=== PATIENT | female | born 1960 | race Two or more races ===

== ENCOUNTER 2016-07-31 09:10 | Emergency (ER) | payer MEDICAID ==
[~2016-07-31] VITALS: Ht 165.1 cm; Wt 68.0 kg
[2016-07-31] MEDS ORDERED: SODIUM CHLORIDE 0.9% 1,000 ML IVB ONE (12:48)
[2016-07-31] MEDS ORDERED: KETOROLAC TROMETH 30 MG/ML 1ML VIAL IV ONE (13:00)
[2016-07-31] MEDS ORDERED: ONDANSETRON HCL 4 MG/2 ML VIAL IV ONE (13:00)
[2016-07-31 13:13] LABS: Basophils # (auto) 0 uL; Basophils % (auto) 0.3 % (0.0-2.0); Eosinophils # (auto) 0.2 uL; Eosinophils % (auto) 2.7 % (0.0-7.0); Hemoglobin 11.9 g/dL (12.2-16.2); Lymphocytes # (auto) 2.6 uL; Lymphocytes % (auto) 38.4 % (10.0-50.0); Mean Corpuscular Hemoglobin 32.8 pg (28.0-32.0); Mean Corpuscular Volume 99.3 fL (80.0-100.0); Mean Platelet Volume 8.8 fL (7.4-10.4); Monocytes # (auto) 0.6 uL; Monocytes % (auto) 8.5 % (0.0-12.0); Neutrophils # (auto) 3.4 uL; Neutrophils % (auto) 50.1 % (37.0-80.0); Platelet Count (auto) 133 10^3/uL (140-450); Red Cell Distribution Width 13.2 % (11.6-16.0); White Blood Cell 6.9 10^3/uL (4.4-10.8)
[2016-07-31 13:39] LABS: Albumin 3.6 g/dL (3.4-5.0); Amylase 121 U/L (25-115); BUN/Creatinine Ratio 12.3; Bilirubin, Total 0.5 mg/dL (0.2-1.0); Calcium 9.7 mg/dL (8.5-10.1); Total Protein 6.8 g/dL (6.4-8.2)
[2016-07-31 14:27] LABS: Urine Bilirubin Negative (Negative); Urine Blood Negative /uL (Negative); Urine Color Yellow (Yellow); Urine Glucose Normal (Normal); Urine Ketone Negative (Negative); Urine Nitrite Negative (Negative); Urine RBC 1 /hpf (0 - 4); Urine Squamous Epithelial Cell FEW /hpf (<5); Urine Urobilinogen Normal (Negative); Urine pH 7.5 (5.0-8.0)
[2016-07-31 15:00] VITALS: BP 158/68
== END 2016-07-31 15:02 | disposition home or self-care (01) ==
LOC: EDBD 09:10 → ER 09:14
DX: R10.9 Unspecified abdominal pain (principal); R11.2 Nausea with vomiting, unspecified; I10 Essential (primary) hypertension; I38 Endocarditis, valve unspecified; F17.210 Nicotine dependence, cigarettes, uncomplicated; F12.10 Cannabis abuse, uncomplicated
CPT/HCPCS: 36415; 74176; 80053; 81001; 82150; 83690; 85025; 93005; 94761; 96361; 96374; 96375; 99285; J1885; J2405; J7030

== ENCOUNTER → 2016-12-10 | Outpatient (CLI) | payer MEDICAID | END | disposition home or self-care (01) | LOC: Rad HDHVI 10:12 | PROVIDERS: ATTEND Internal Medicine Cardiovascular Disease | DX: R07.9 Chest pain, unspecified (principal); R06.02 Shortness of breath; R60.9 Edema, unspecified | CPT/HCPCS: 93306 ==

== ENCOUNTER → 2016-12-16 | Outpatient (CLI) | payer MEDICAID ==
[~2016-12-16] VITALS: Ht 152.4 cm; Wt 55.8 kg
[~2016-12-16] MED LIST: ADENOSINE 47 MG in GIVE UN-DILUTED 0 ML IV ONE; ADENOSINE 90 MG/30 ML INJ IV ONE
== END | disposition home or self-care (01) ==
LOC: Rad HDHVI 13:21
PROVIDERS: ATTEND Internal Medicine Cardiovascular Disease
DX: Z95.0 Presence of cardiac pacemaker (principal)
CPT/HCPCS: 78452; 93005; 96374; 96375; A9500; J0153

== ENCOUNTER 2019-01-04 16:36 | Inpatient (IN) | payer MEDICAID ==
[~2019-01-04] VITALS: Ht 162.6 cm; Wt 60.7 kg
[2019-01-04 19:36] LABS: Basophils # (auto) 0 uL; Basophils % (auto) 0.6 % (0.0-2.0); Eosinophils # (auto) 0.1 uL; Mean Corpuscular Hemoglobin 34.6 pg (28.0-32.0); Monocytes # (auto) 0.5 uL; White Blood Cell 5.7 10^3/uL (4.4-10.8)
[2019-01-04 19:37] LABS: Eosinophils % (auto) 2.1 % (0.0-7.0); Hematocrit 35.7 % (36.0-46.0); Hemoglobin 11.8 g/dL (12.2-16.2); Lymphocytes # (auto) 2.5 uL; Mean Corpuscular Volume 104.6 fL (80.0-100.0); Monocytes % (auto) 9.4 % (0.0-12.0); Neutrophils # (auto) 2.6 uL; Neutrophils % (auto) 44.9 % (37.0-80.0); Nucleated Red Blood Cells % 0.1 %; Platelet Count (auto) 95 10^3/uL (140-450); Red Blood Cells 3.41 10^6/uL (4.0-5.20); Red Cell Distribution Width 12.6 % (11.8-14.3)
[2019-01-04 19:41] LABS: Albumin 3.6 g/dL (3.4-5.0); Anion Gap 9 (5-15); Blood Urea Nitrogen 15 mg/dL (7-18); Calcium 9.9 mg/dL (8.5-10.1); Carbon Dioxide 22 mmol/L (21-32); Chloride 116 mmol/L (98-107); GFR African American 63 mL/min; GFR Non-African American 52 mL/min; Glucose 85 mg/dL (74-106); Magnesium 2.2 mg/dL (1.6-2.6); Potassium 4.1 mmol/L (3.5-5.1); Sodium 147 mmol/L (136-145)
[2019-01-04 19:44] LABS: Alanine Aminotransferase 24 U/L (13-56); Alkaline Phosphatase 82 U/L (45-117); Aspartate Aminotransferase 18 U/L (15-37); Bilirubin, Total 0.4 mg/dL (0.2-1.0); Total Protein 6.6 g/dL (6.4-8.2)
[2019-01-04 20:02] LABS: INR 1.14 (0.9-1.15); Partial Thromboplastin Time 42.1 sec (23.64-32.05)
[2019-01-04] MEDS ORDERED: ONDANSETRON HCL 4 MG/2 ML VIAL IV PRN (20:45)
[2019-01-04] MEDS ORDERED: NITROGLYCERIN 0.4 MG SL TAB SL PRN (20:45)
[2019-01-04] MEDS ORDERED: MORPHINE SULF INJ 2 MG/ML SYRINGE 1ML IV PRN (20:45)
[2019-01-04] MEDS ORDERED: TEMAZEPAM 15 MG CAP PO PRN (20:45)
--- NOTE | 2019-01-04 23:00 | NUR ---
Telemetry admit from ER YOJANA LAUREN S admitted to Telemetry unit after SBAR received. Patient oriented to Ilsa Richardson RN primary RN, unit, room, bed, and unit policies regarding patient care and visiting hours. Patient now on continuous telemetry monitoring, tele box # 47 and telemetry reading on arrival to unit is AV Paced. Patient weighed by bedscale and encouraged to call if they need something. All questions and concerns addressed, patient verbalized understanding, will continue to monitor Note: []
[2019-01-04] MEDS: FAMOTIDINE 20 MG TAB PO SCH (23:32)
[2019-01-04] MEDS: ATORVASTATIN 20 MG TAB PO SCH (23:32)
[2019-01-04 23:58] VITALS: BP 154/57
[2019-01-05 02:24] VITALS: BP 154/57
[2019-01-05] MEDS ORDERED: PANT40TA2 PO (02:49)
[2019-01-05] MEDS ORDERED: CARV6.2551 PO (02:49)
[2019-01-05] MEDS ORDERED: TOPI100T68 PO (02:49)
[2019-01-05] MEDS ORDERED: SIMV-8 PO (02:49)
[2019-01-05] MEDS ORDERED: LOSA-39 PO (02:49)
[2019-01-05] MEDS ORDERED: MAGN400C2 PO (02:49)
[2019-01-05] MEDS ORDERED: HYDR-4833 PO (02:49)
[2019-01-05 05:12] VITALS: BP 141/59
[2019-01-05 06:05] LABS: Anion Gap 7 (5-15); Calcium 9.4 mg/dL (8.5-10.1); Carbon Dioxide 23 mmol/L (21-32); Chloride 118 mmol/L (98-107); Glucose 89 mg/dL (74-106); Potassium 4.4 mmol/L (3.5-5.1); Sodium 148 mmol/L (136-145)
[2019-01-05 06:17] LABS: BUN/Creatinine Ratio 14.4; Blood Urea Nitrogen 16 mg/dL (7-18); GFR African American 65 mL/min; GFR Non-African American 54 mL/min
[2019-01-05] MEDS: FUROSEMIDE 40 MG TAB PO SCH (08:17)
[2019-01-05] MEDS: FAMOTIDINE 20 MG TAB PO SCH ×2 (08:17→20:55)
[2019-01-05] MEDS: CARVEDILOL 3.125 MG TAB PO SCH ×2 (08:18→22:34)
[2019-01-05] MEDS: ASPirin 81 mg TAB PO SCH (08:18)
[2019-01-05 09:48] LABS: Cholesterol 125 mg/dL (< 200)
[2019-01-05 09:50] LABS: HDL Cholesterol 66 mg/dL (40-59); LDL Cholesterol 47 mg/dL (< 100); Triglycerides 102 mg/dL (< 150)
[2019-01-05 13:10] VITALS: BP 146/77
[2019-01-05 17:00] VITALS: BP 153/62
--- NOTE | 2019-01-05 19:45 | NUR ---
Opening Shift Note Assumed care of patient, awake and alert, oriented x 4, follows direction. On room air with even and unlabored respiration, no S/S of distress or SOB. Iv to right hand intact and patent. Patient turns independently in bed and ambulates to bathroom with steady gait. Bed low locked position with side rails up x 2 and call light within reach. Instructed on POC and to call for assist PRN, will continue to monitor for changes Q1hr and PRN.
[2019-01-05] MEDS: ACETAMINOPHEN 325 MG TAB PO PRN (20:55)
[2019-01-05] MEDS: ATORVASTATIN 20 MG TAB PO SCH (20:55)
[2019-01-05 21:45] VITALS: BP 120/47
[2019-01-05 22:37] LABS: Urine Amorphous Crystal FEW /hpf (None Seen); Urine Bacteria FEW /hpf (None Seen); Urine Blood Negative /uL (Negative); Urine Specific Gravity 1.015 (1.001-1.035); Urine WBC 2 /hpf (0 - 5)
[2019-01-06 05:00] VITALS: BP 150/51
--- NOTE | 2019-01-06 06:50 | NUR ---
IV insertion IV access obtained, via clean sterile technique by inserting 20 gauge catheter at right forearm after 2 attempt(s). IV secured properly. No trauma to site. Patient tolerated well. NOTE: secondary IV for stress test
--- NOTE | 2019-01-06 07:00 | NUR ---
Opening Shift Note Assumed care of patient, awake and alert. No S/S of distress/SOB or pain. Instructed on POC and to call for assist PRN, will continue to monitor for changes Q1hr and PRN.
--- NOTE | 2019-01-06 07:06 | NUR ---
Closing Note patient resting in bed with even and unlabored respirations. No s/s of distress. Bed low locked position with side rails up x 2 and call light within reach. Endorsed care to day shift RN.
--- NOTE | 2019-01-06 07:09 | NUR ---
Called [employer] for pacemaker assessment spoke with Candida from [employer] answering [employer], states she will be calling a labor union business representative to assess pacemaker today. Patients [employer] Accounts Payable Administrator Identification copy placed in hard chart.
[2019-01-06 07:10] LABS: Basophils # (auto) 0 uL; Eosinophils # (auto) 0.1 uL; Hemoglobin 11.8 g/dL (12.2-16.2); Monocytes # (auto) 0.4 uL; Neutrophils # (auto) 3.4 uL; Nucleated Red Blood Cells % 0.1 %
[2019-01-06 07:12] LABS: Basophils % (auto) 0.6 % (0.0-2.0); Hematocrit 34.7 % (36.0-46.0); Lymphocytes # (auto) 1.4 uL; Lymphocytes % (auto) 26.5 % (10.0-50.0); Mean Corpuscular Hemoglobin 35.1 pg (28.0-32.0); Mean Corpuscular Volume 103.2 fL (80.0-100.0); Monocytes % (auto) 7.4 % (0.0-12.0); Neutrophils % (auto) 63.5 % (37.0-80.0); Platelet Count (auto) 94 10^3/uL (140-450); Red Blood Cells 3.36 10^6/uL (4.0-5.20); Red Cell Distribution Width 12.3 % (11.8-14.3); White Blood Cell 5.3 10^3/uL (4.4-10.8)
[2019-01-06 07:27] LABS: Albumin 3.1 g/dL (3.4-5.0); Anion Gap 8 (5-15); Blood Urea Nitrogen 15 mg/dL (7-18); Calcium 9.4 mg/dL (8.5-10.1); Carbon Dioxide 19 mmol/L (21-32); Chloride 118 mmol/L (98-107); Glucose 86 mg/dL (74-106); Potassium 3.9 mmol/L (3.5-5.1); Sodium 145 mmol/L (136-145)
[2019-01-06 07:33] LABS: Alanine Aminotransferase 19 U/L (13-56); Alkaline Phosphatase 74 U/L (45-117); Aspartate Aminotransferase 16 U/L (15-37); BUN/Creatinine Ratio 14.7; Bilirubin, Total 0.4 mg/dL (0.2-1.0); GFR African American 72 mL/min; GFR Non-African American 60 mL/min
[2019-01-06] MEDS ORDERED: ADENOSINE 51 MG in GIVE UN-DILUTED 0 ML IV STA (08:20)
[2019-01-06 09:00] VITALS: BP 152/64
--- NOTE | 2019-01-06 09:00 | NUR ---
PT DOWN IN NUCLEAR MED.
--- NOTE | 2019-01-06 09:22 | NUR ---
MEDITRONIC REP AT BEDSIDE, BUT PATIENT IS IN NUCLEAR MEDICINE. HE STATED HE HAD TO GO TO [facility] AND THEN HE WILL RETURN.
[2019-01-06] MEDS: ASPirin 81 mg TAB PO SCH (10:00)
[2019-01-06] MEDS: CARVEDILOL 3.125 MG TAB PO SCH ×2 (10:00→20:34)
[2019-01-06] MEDS: FAMOTIDINE 20 MG TAB PO SCH ×2 (11:51→20:33)
[2019-01-06] MEDS: FUROSEMIDE 40 MG TAB PO SCH (11:51)
[2019-01-06] MEDS ORDERED: cefTRIAXone 1GM/50ML D5W 50 ML IV ONE (12:30)
[2019-01-06 12:36] VITALS: BP 144/62
--- NOTE | 2019-01-06 15:40 | NUR ---
FALL: NOTIFIED BY RN MATT SIMENTAL OF PATIENTS FALL. NOTIFIED CHARGE NURSE DANIELA AND PAGED DR. GÓMEZ.
--- NOTE | 2019-01-06 15:42 | NUR ---
FALL: While helping bedside RN collect urine sample, was informed by patient that she fell in the restroom after using toilet. Patient states that she was able to get up and get back to bed on her own. Patient states that she didn't hit her head. Patient states she just wanted to let nursing staff know. Informed bedside RN, Bobby, rim fire charger operator. to be paged.
[2019-01-06 16:05] LABS: Urine Bacteria FEW /hpf (None Seen); Urine Blood Negative /uL (Negative); Urine Hyaline Cast FEW /lpf (0 - 2); Urine Specific Gravity 1.007 (1.001-1.035); Urine WBC 11 /hpf (0 - 5)
--- NOTE | 2019-01-06 16:22 | NUR ---
NOTIFIED OF FALL DR. GÓMEZ AWARE OF FALL. NO INTERVENTIONS NEEDED UNLESS PATIENT STARTS COMPLAINING OF PAIN THEN ORDER AN X-RAY
[2019-01-06 17:00] VITALS: BP 114/51
--- NOTE | 2019-01-06 19:50 | NUR ---
Opening Shift Note Assumed care of patient, awake and alert, oriented x 4, follows direction. On room air with even and unlabored respiration, no S/S of distress or SOB. IV to right hand and forearm intact and patent. Patient turns independently in bed and ambulates to bathroom with steady gait. Bed low locked position with side rails up x 2 and call light within reach. Instructed on POC and to call for assist PRN, will continue to monitor for changes Q1hr and PRN.
[2019-01-06] MEDS: ACETAMINOPHEN 325 MG TAB PO PRN (20:32)
[2019-01-06 21:45] VITALS: BP 144/98
[2019-01-06] MEDS: ATORVASTATIN 20 MG TAB PO SCH (21:50)
[2019-01-07 05:52] VITALS: BP 143/58
[2019-01-07 06:18] LABS: Basophils # (auto) 0 uL; Lymphocytes # (auto) 2.1 uL; Mean Corpuscular Hgb Conc. 33.8 g/dL (32.0-36.0); Monocytes # (auto) 0.5 uL; Red Blood Cells 3.47 10^6/uL (4.0-5.20)
[2019-01-07 06:29] LABS: Basophils % (auto) 0.9 % (0.0-2.0); Eosinophils # (auto) 0.2 uL; Eosinophils % (auto) 2.7 % (0.0-7.0); Hematocrit 35.7 % (36.0-46.0); Hemoglobin 12.1 g/dL (12.2-16.2); Lymphocytes % (auto) 37.4 % (10.0-50.0); Mean Corpuscular Hemoglobin 34.8 pg (28.0-32.0); Mean Corpuscular Volume 102.8 fL (80.0-100.0); Monocytes % (auto) 8.2 % (0.0-12.0); Neutrophils # (auto) 2.9 uL; Neutrophils % (auto) 50.8 % (37.0-80.0); Nucleated Red Blood Cells % 0.1 %; Platelet Count (auto) 100 10^3/uL (140-450); Red Cell Distribution Width 12.3 % (11.8-14.3); White Blood Cell 5.7 10^3/uL (4.4-10.8)
--- NOTE | 2019-01-07 06:53 | NUR ---
Closing Note patient resting in bed with even and unlabored respirations. No s/s of distress. Bed low locked position with side rails up x 2 and call light within reach.
[2019-01-07 06:54] LABS: Anion Gap 8 (5-15); Blood Urea Nitrogen 13 mg/dL (7-18); Calcium 9.6 mg/dL (8.5-10.1); Carbon Dioxide 20 mmol/L (21-32); Chloride 117 mmol/L (98-107); Glucose 94 mg/dL (74-106); Potassium 3.8 mmol/L (3.5-5.1); Sodium 145 mmol/L (136-145)
[2019-01-07 06:57] LABS: BUN/Creatinine Ratio 11.8; GFR African American 66 mL/min; GFR Non-African American 55 mL/min
--- NOTE | 2019-01-07 06:58 | NUR ---
Received call from MD Peterson Spoke with Dr. Herrera, received new order to obtain consent for LHC for abnormal stress test per Dr. Brown. Dr. Peterson will performing LHC. Updated Kristen on patient status, patient has been NPO since midnight. Will carry out orders.
[2019-01-07] MEDS ORDERED: LIDOCAINE 2%HCL (LOCAL ANESTH.) INJ 20ML MDV ONE (07:24)
--- NOTE | 2019-01-07 07:25 | NUR ---
Patient taken to engineering laboratory technician
--- NOTE | 2019-01-07 07:28 | NUR ---
Endorsed care to day shift KEENAN Bauman
[2019-01-07] MEDS ORDERED: IODIXANOL 320MG/ML 100ML BTL IV ONE ×2 (07:36→07:49)
[2019-01-07] MEDS ORDERED: ANGIOMAX 250 MG VIAL IV ONE (07:44)
[2019-01-07] MEDS ORDERED: fentaNYL CITRATE 100 MCG/2 ML VL ONE (07:45)
[2019-01-07] MEDS ORDERED: MIDAZOLAM HCL 1MG/1ML-2 ML VIAL ONE (07:45)
[2019-01-07] MEDS ORDERED: SODIUM CHL 0.9% 0 ML ONE (07:45)
[2019-01-07 08:00] VITALS: BP 148/61
--- NOTE | 2019-01-07 09:10 | NUR ---
PATIENT BACK ON FLOOR FROM BALANCE CLERK PEDAL PULSES CHECKED AND RIGHT GROIN DRESSING CHECKED. DRESSING IS DRY INTACT WITH NO BLEEDING.
[2019-01-07] MEDS: ASPirin 81 mg TAB PO SCH (10:00)
[2019-01-07] MEDS: cefTRIAXone 1GM/50ML D5W 50 ML IV SCH (10:18)
[2019-01-07] MEDS: CARVEDILOL 3.125 MG TAB PO SCH ×2 (10:20→22:00)
[2019-01-07] MEDS: FUROSEMIDE 40 MG TAB PO SCH (10:21)
[2019-01-07] MEDS: FAMOTIDINE 20 MG TAB PO SCH ×2 (10:21→21:04)
--- NOTE | 2019-01-07 11:30 | NUR ---
IV removal Patient IV was leaking,no pain per patient. IV DC'd with clean sterile technique, catheter fully intact. Pressure dressing applied to site. Patient tolerated well.
[2019-01-07 13:00] VITALS: BP 149/54
[2019-01-07 16:19] VITALS: BP 149/54
[2019-01-07 17:00] VITALS: BP 143/53
--- NOTE | 2019-01-07 19:45 | NUR ---
Opening Shift Note Assumed care of patient, s/p LHC, dressing to right groin clean, dry and intact, no hematoma, no bleeding, soft upon palpation, positive tissue perfusion bilateral LE with +3 pulses, even and regular to bilateral pedal pulses. Awake and alert, oriented x 4, follows direction. On room air with even and unlabored respiration, no S/S of distress or SOB. IV to right hand intact and patent. Patient turns independently in bed and ambulates to bathroom with steady gait. Bed low locked position with side rails up x 2 and call light within reach. Instructed on POC and to call for assist PRN, will continue to monitor for changes Q1hr and PRN.
[2019-01-07] MEDS: ATORVASTATIN 20 MG TAB PO SCH (21:04)
[2019-01-07] MEDS: ACETAMINOPHEN 325 MG TAB PO PRN (21:07)
[2019-01-07 21:30] VITALS: BP 129/41
[2019-01-08 05:29] VITALS: BP 153/51
[2019-01-08 08:00] VITALS: BP 117/57
--- NOTE | 2019-01-08 08:00 | NUR ---
Patient in bed, awake, oriented x4. No acute distress noted.
--- NOTE | 2019-01-08 10:00 | NUR ---
Patient is ambulatory, steady gait noted.
[2019-01-08] MEDS: cefTRIAXone 1GM/50ML D5W 50 ML IV SCH (10:22)
[2019-01-08] MEDS: FAMOTIDINE 20 MG TAB PO SCH (10:23)
[2019-01-08] MEDS: FUROSEMIDE 40 MG TAB PO SCH (10:23)
[2019-01-08] MEDS: CARVEDILOL 3.125 MG TAB PO SCH (10:23)
[2019-01-08] MEDS: ASPirin 81 mg TAB PO SCH (10:24)
[2019-01-08 10:43] VITALS: BP 117/57
--- NOTE | 2019-01-08 11:05 | NUR ---
Dr. Burnett made aware patient asked for prescription for Carvedilol 6.25 mg.
--- NOTE | 2019-01-08 12:15 | NUR ---
Discharge instructions given as ordered. Encourage to follow up with PMD as instructed. All questions and concerns addressed. Patient verbalized understanding. Medication reconciliation form completed and copy given to patient. Home medications from the Pharmacy returned to patient. IV removed with catheter intact, pressure dressing applied. Telemetry unit returned to [facility]. Patient is ambulatory, refused to be taken to vehicle via wheelchair, patient with all personal belongings. No distress noted at time of departure.
== END 2019-01-08 12:15 | disposition home or self-care (01) | DRG 191 ==
LOC: ER 16:39 → TELE 16:40 → TELE-WESTW 22:15
PROVIDERS: ADMIT Nurse Practitioner; ATTEND Internal Medicine Pulmonary Disease
PROC: B2111ZZ Fluoroscopy of Multiple Coronary Arteries using Low Osmolar Contrast (ICD-10-PCS; principal; 2019-01-07)
PROC: 4B02XSZ Measurement of Cardiac Pacemaker, External Approach (ICD-10-PCS; 2019-01-07)
DX: I25.110 Atherosclerotic heart disease of native coronary artery with unstable angina pectoris (principal); Q21.3 Tetralogy of Fallot; D69.6 Thrombocytopenia, unspecified; E87.0 Hyperosmolality and hypernatremia; N18.3 Chronic kidney disease, stage 3 (moderate); I07.1 Rheumatic tricuspid insufficiency; I13.0 Hypertensive heart and chronic kidney disease with heart failure and stage 1 through stage 4 chronic kidney disease, or unspecified chronic kidney disease; I50.22 Chronic systolic (congestive) heart failure; J44.9 Chronic obstructive pulmonary disease, unspecified; D63.8 Anemia in other chronic diseases classified elsewhere; E78.5 Hyperlipidemia, unspecified; F12.90 Cannabis use, unspecified, uncomplicated; F17.210 Nicotine dependence, cigarettes, uncomplicated; G89.4 Chronic pain syndrome; N39.0 Urinary tract infection, site not specified; Z80.41 Family history of malignant neoplasm of ovary; Z82.49 Family history of ischemic heart disease and other diseases of the circulatory system; Z83.3 Family history of diabetes mellitus; Z87.442 Personal history of urinary calculi; Z87.74 Personal history of (corrected) congenital malformations of heart and circulatory system; Z90.710 Acquired absence of both cervix and uterus; Z95.0 Presence of cardiac pacemaker; Z98.51 Tubal ligation status; Z88.1 Allergy status to other antibiotic agents; Z88.5 Allergy status to narcotic agent
CPT/HCPCS: 36415; 71046; 78452; 80048; 80053; 80061; 81001; 83735; 83880; 84443; 84484; 85025; 85379; 85610; 85730; 87086; 93005; 93017; 93306; 93454; 94761; 96365; 96367; 99152; G0378; J0153; J0696; J2250; Q9967

== ENCOUNTER 2024-08-30 15:35 | Inpatient (IN) | payer MEDICAID ==
[~2024-08-30] VITALS: Ht 160 cm; Wt 54.7 kg
[~2024-08-30 15:35] MED LIST changes: -ADENOSINE 47 MG in GIVE UN-DILUTED 0 ML IV ONE; -ADENOSINE 90 MG/30 ML INJ IV ONE; +APIX5TAB PO; +CARV6.2551 PO; +CYCL-611 PO; +DOCU-265 PO; +ESCI1TAB37 PO; +FERR325T20 PO; +FLUO-470 PO; +FURO40TA4 PO; +HYDR-4069 PO; +HYDR-4833 PO; +HYDR2.5C65 TOP; +LANS30CA58 PO; +LIDO1.8P TOP; +LOSA-535 PO; +MAGN400C2 PO; +METO10TA4 PO; +NALO4SPR3 NAS; +PANT40TA2 PO; +POTA-228 PO; +SIMV20TA20 PO; +TOPI100T68 PO; +TOPI200T43 PO; +TRAZ-228 PO
[2024-08-30 17:11] VITALS: PULSE 74; RESP 20; O2SAT 96
--- NOTE | 2024-08-30 17:11 | ED.PDOC ---
HPI (NEURO) HPI Comments 64 y.o female presents to the ED via EMS for an evaluation of seizure activity today. Sister at bedside reports they were both eating at a restaurant, noticed patient start to drool and zone out for about 2-3 minutes. Patient was recently diagnosed with seizures, is on medication which she has been compliant with taking and is awaiting to see a neurologist for follow up. Patient's last seizure was 3 months ago. Patient at this time denies any pain or symptoms. Chief Complaint: Seizure Time Seen by MD: 17:00 Primary Care Provider: unknown Reviewed Notes: Nurses Notes, Lead Radiation Therapist Notes, Medications, Allergies Information Source: Patient, Relative (Sibling) Mode of Arrival: Ambulatory Severity: Moderate Timing: Hours Duration: Since onset Prehospital treatment: 12 Lead EKG, Sales Order Processor Seizure Quality: Single Episodes Onset: At rest Circumstances: Spontaneous Symptoms: None Before: Normal During: LOC After: Normal Mentation History of: Seizure Disorder Modifying factors: Nothing Associated Signs and Symptoms: None Past Medical History PAST MEDICAL HISTORY: CHF, COPD, High Lipids, HTN, Kidney Stones, Seizures Surgical History: , Hysterectomy, Pacemaker, Tubal Ligation CHRISTIAN EDUCATION DIRECTOR History: No Pertinent CHRISTIAN EDUCATION DIRECTOR History Family History Family History: Unobtainable Social History Smoker: Cigarettes Alcohol: Occasionally Drugs: Marijuana Lives In: Home Constitutional: denies: chills, diaphoresis, fatigue, fever, malaise, sweats, weakness, others EENTM: denies: blurred vision, double vision, ear bleeding, ear discharge, ear drainage, ear pain, ear ringing, eye pain, eye redness, hearing loss, mouth pain, mouth swelling, nasal discharge, nose bleeding, nose congestion, nose pain, photophobia, tearing, throat pain, throat swelling, voice changes, others Respiratory: denies: cough, hemoptysis, orthopnea, SOB at rest, shortness of breath, SOB with excertion, stridor, wheezing, others Cardiovascular: denies: chest pain, dizzy spells, diaphoresis, Dyspnea on exertion, edema, irregular heart beat, left arm pain, lightheadedness, palpitations, PND, syncope, others Gastrointestinal: denies: abdomen distended, abdominal pain, blood streaked bowels, constipated, diarrhea, dysphagia, difficulty swallowing, hematemesis, melena, nausea, poor appetite, poor fluid intake, rectal bleeding, rectal pain, vomiting, others Genitourinary: denies: abnormal vagina bleeding, burning, dyspareunia, dysuria, flank pain, frequency, hematuria, incontinence, pain, , vagina discharge, urgency, others Neurological: reports: seizure; denies: dizziness, fainting, headache, left sided numbness, left sided weakness, numbness, paresthesia, pre-existing deficit, right sided numbness, right sided weakness, speech problems, tingling, tremors, weakness, others Musculoskeletal: denies: back pain, gout, joint pain, joint swelling, muscle pain, muscle stiffness, neck pain, others Integumetry: denies: bruises, change in color, change in hair/nails, dryness, laceration, lesions, lumps, rash, wounds, others Allergic/Immunocompromised: denies: Difficulty Healing, Frequent Infections, Hives, Itching, others Hematologic/Lymphatic: denies: anemia, blood clots, easy bleeding, easy bruising, swollen glands, others Endocrine: denies: excessive hunger, excessive sweating, excessive thirst, excessive urination, flushing, intolerance to cold, intolerance to heat, unexplained weight gain, unexplained weight loss, others Psychiatric: denies: anxiety, bipolar disorder, depression, hopeless, panic disorder, schizophrenia, sleepless, suicidal, others All Other Systems: Reviewed and Negative Physical Exam General Appearance: Moderate Distress, Thin HEENT: Normal ENT Inspection, Pharynx Normal, TMs Normal Neck: Full Range of Motion, Non-Tender, Normal, Normal Inspection Respiratory: Chest Non-Tender, Lungs Clear, No Accessory Muscle Use, No Respiratory Distress, Normal Breath Sounds Cardiovascular: No Edema, No JVD, No Murmur, No Gallop, Normal Peripheral Pulses, Regular Rate/Rhythm Breast Exam: Deferred Gastrointestinal: No Organomegaly, Non Tender, No Pulsatile Mass, Normal Bowel Sounds, Soft Genitalia: Deferred Pelvic: Deferred Rectal: Deferred Extremities: No calf tenderness, Normal capillary refill, Normal inspection, Normal range of motion, Non-tender, No pedal edema Musculoskeletal : Apperance: Normal Neurologic: Alert, procurement officer II-XII nml as Tested, No Motor Deficits, Normal Affect, Normal Mood, No Sensory Deficits Cerebellar Function: Normal Reflexes: Normal Skin: Dry, Normal Color, Warm Lymphatic: No Adenopathy Was a procedure done? Was a procedure done?: No Differential Diagnosis (SZ) Seizure: Psychogenic Seizure, Syncope, Encephalopathy, Epilepsy-Break Through, Epilepsy-Status X-Ray, Labs, Meds, VS Vital Signs Date Time Temp Pulse Resp B/P (MAP) Pulse Ox O2 Delivery O2 Flow Rate FiO2 08/30/24 18:00 67 18 145/55 (85) 96 08/30/24 17:11 97.3 74 20 138/57 (84) 96 97.3 08/30/24 17:11 74 20 96 Room Air* 0 21 08/30/24 16:08 97.9 8 18 140/55 (83) 97 97.9 Lab Test 08/30/24 17:27 08/30/24 16:01 Range/Units White Blood Count 8.3 4.4-10.8 10^3/uL Red Blood Count 3.81 L 4.0-5.20 10^6/uL Hemoglobin 13.1 12.2-16.2 g/dL Hematocrit 39.5 36.0-46.0 % Mean Corpuscular Volume 103.5 H 80.0-100.0 fL Mean Corpuscular Hemoglobin 34.3 H 28.0-32.0 pg Mean Corpuscular Hemoglobin Concent 33.2 32.0-36.0 g/dL Red Cell Distribution Width 13.5 11.8-14.3 % Platelet Count 65 L 140-450 10^3/uL Mean Platelet Volume 9.2 6.9-10.8 fL Neutrophils (%) (Auto) 76.5 37.0-80.0 % Lymphocytes (%) (Auto) 14.3 10.0-50.0 % Monocytes (%) (Auto) 7.7 0.0-12.0 % Eosinophils (%) (Auto) 1.0 0.0-7.0 % Basophils (%) (Auto) 0.5 0.0-2.0 % Neutrophils # (Auto) 6.3 1.6-8.6 10 ^3/uL Lymphocytes # (Auto) 1.2 0.4-5.4 10 ^3/uL Monocytes # (Auto) 0.6 0-1.3 10 ^3/uL Eosinophils # (Auto) 0.1 0-0.8 10 ^3/uL Basophils # (Auto) 0 0-0.2 10 ^3/uL Nucleated Red Blood Cells 0.1 % Sodium Level 143 136-145 mmol/L Potassium Level 3.6 3.5-5.1 mmol/L Chloride Level 113 H 98-107 mmol/L Carbon Dioxide Level 22 20-31 mmol/L Anion Gap 8 5-15 Blood Urea Nitrogen 10 9-23 mg/dL Creatinine 1.29 H 0.550-1.02 mg/dL Glomerular Filtration Rate Calc 47 >90 mL/min BUN/Creatinine Ratio 7.8 L 10.0-20.0 Serum Glucose 133 H 74-106 mg/dL Calcium Level 10.6 H 8.7-10.4 mg/dL POC Glucose 157 H 70-106 mg/dl Current Medications Medications (Trade) Dose Ordered Sig/Leon Route Start Time Stop Time Status Last Admin Levetiracetam 100 ml @ 400 mls/hr ONCE ONCE IV 08/30/24 17:15 08/30/24 17:29 DC 08/30/24 17:22 The patient was given Keppra 1000 mg IV piggyback The CBC and chemistry panel are within normal limits An IV Hep-Lock was established Seizure precautions were placed At this time, the patient was being admitted to the hospitalist A neurology consult will be obtained. Time of 1ST Reevaluation: 17:11 Reevaluation 1ST: Unchanged Patient Education/Counseling: Diagnosis, Treatment, Prognosis Family Education/Counseling: Diagnosis, Treatment, Prognosis Departure 1 Departure Time of Disposition: 19:56 Impression: Primary Impression: Breakthrough seizure Disposition: ADMITTED INPATIENT Admit to: [facility] Condition: Fair Critical Care Note Critical Care Time?: No Stability Stability form required: Yes Unstable for transfer: Telemetry monitoring (Telemetry monitoring required), ED Physician Assesment (Clinical assesment) I personally scribed for ALONZO WILCOX MD ([email or web address]) on 08/30/24 at 17:11. Electronically submitted by Niki Trivedi ([facility]). ALONZO WILCOX MD Aug 30, 2024 17:11
[2024-08-30] MEDS: levETIRAcetam 1000 mg/100ml 100 ML IV ONE (17:22)
[2024-08-30 17:50] LABS: Basophils # (auto) 0 10 ^3/uL (0-0.2); Basophils % (auto) 0.5 % (0.0-2.0); Eosinophils # (auto) 0.1 10 ^3/uL (0-0.8); Hemoglobin 13.1 g/dL (12.2-16.2); Lymphocytes # (auto) 1.2 10 ^3/uL (0.4-5.4); Nucleated Red Blood Cells % 0.1 %; Red Cell Distribution Width 13.5 % (11.8-14.3)
[2024-08-30 17:53] LABS: Hematocrit 39.5 % (36.0-46.0); Lymphocytes % (auto) 14.3 % (10.0-50.0); Mean Corpuscular Hemoglobin 34.3 pg (28.0-32.0); Mean Corpuscular Hgb Conc. 33.2 g/dL (32.0-36.0); Mean Corpuscular Volume 103.5 fL (80.0-100.0); Monocytes # (auto) 0.6 10 ^3/uL (0-1.3); Monocytes % (auto) 7.7 % (0.0-12.0); Neutrophils # (auto) 6.3 10 ^3/uL (1.6-8.6); Neutrophils % (auto) 76.5 % (37.0-80.0); Platelet Count (auto) 65 10^3/uL (140-450); Red Blood Cells 3.81 10^6/uL (4.0-5.20); White Blood Cell 8.3 10^3/uL (4.4-10.8)
--- NOTE | 2024-08-30 17:56 | DVH ---
EXAM: CT HEAD WITHOUT CONTRAST INDICATION: seizure TECHNIQUE: CT of the head without intravenous contrast. Radiation Dose : 1. Head: CT Dose: CTDI volume is 52.79 mGy. Dose-length product is 951.87 mGy*cm The dose indicators for CT are the volume Computed Tomography (CT) Dose Index (CTDIvol) and the Dose Length Product (DLP), and are measured in units of mGy and mGy-cm, respectively. These indicators are not patient dose, but values generated from the CT scanner acquisition factors. The report includes radiation exposure data for exposures received during this examination. COMPARISON: None FINDINGS: There is no evidence of acute intracranial hemorrhage, extra-axial collection, mass effect, midline s hift, herniation or hydrocephalus. The ventricles, sulci and cisterns are age appropriate. The martinez-white differentiation is intact. Patchy periventricular and subcortical white matter hypoattenuation is nonspecific but may be related to small vessel ischemic disease. The visualized paranasal sinuses and mastoid air cells are clear. The surrounding soft tissues and osseous structures are unremarkable. IMPRESSION: 1. No acute intracranial abnormality. Radiation optimization: All CT scans at this facility use at least one of these dose optimization florencia hniques: automated exposure control mA and/or kV adjustment per patient size (includes targeted exam s where dose is matched to clinical indication) or iterative reconstruction.
[2024-08-30 17:59] LABS: Potassium 3.6 mmol/L (3.5-5.1); Sodium 143 mmol/L (136-145)
[2024-08-30 18:00] LABS: Anion Gap 8 (5-15); Carbon Dioxide 22 mmol/L (20-31)
[2024-08-30 18:04] LABS: Calcium 10.6 mg/dL (8.7-10.4); Chloride 113 mmol/L (98-107)
[2024-08-30 18:06] LABS: BUN/Creatinine Ratio 7.8 (10.0-20.0); Blood Urea Nitrogen 10 mg/dL (9-23)
[2024-08-30 18:14] LABS: Glucose 133 mg/dL (74-106)
[2024-08-30 19:25] VITALS: PULSE 69; RESP 22; O2SAT 96
[2024-08-30 21:13] LABS: Urine Bacteria None Seen /hpf (None Seen)
[2024-08-30 21:37] LABS: Urine Blood 1+ /uL (Negative); Urine Clarity Clear (Clear); Urine Color Light-Yellow (Yellow); Urine Protein, UAD Negative (Negative); Urine Specific Gravity 1.011 (1.001-1.035); Urine Squamous Epithelial Cell FEW /hpf (<5); Urine Urobilinogen Normal (Negative); Urine WBC 1 /HPF (0-5)
[2024-08-31] VITALS (9 sets, daily range): BP systolic 150–151; BP diastolic 51–55; PULSE 63–78; RESP 14–18; TEMP 98.2–98.9; O2SAT 92–100
--- NOTE | 2024-08-31 02:23 | DVHHPRES ---
History of Present Illness Resident Creating Document: MELA ACEVEDO RESIDENT History of Present Illness Patient is a 64-year-old female with past medical history of CHF, COPD, repaired tetralogy of Fallot, subdural hematoma with prior evacuation 2014, chronic pain syndrome, CKD, moderate mitral regurgitation, status post pacemaker due to bradycardia, hypertension, dyslipidemia, newly diagnosed seizures, who came in after having a seizure-like episode. According to the patient, earlier yesterday on 08/30/2024 she was having lunch with her roommate when the roommate noticed her eyes closed and she was rocking back and forth which is what prompted this visit to the hospital. Per patient, she remembers the seizure episode, however, notes feeling confused afterwards but was able to finish eating her meal. Denies any urinary or bowel incontinence. Per patient she had a similar episode 2 weeks ago. Patient is on Eliquis 5 mg b.i.d. which according to her was started recently, patient unsure why she is on blood thinners. Past Medical History CHF, COPD, repaired tetralogy of Fallot, subdural hematoma with prior evacuation 2014, chronic pain syndrome, CKD, moderate mitral regurgitation, status post pacemaker due to bradycardia, hypertension, dyslipidemia, newly diagnosed seizures Past Surgical History Hysterectomy, open heart surgery for tetralogy of Fallot repair the age of 7 Past Social History Smoking: Quit 2 years ago, prior to that was smoking 1-2 cigarettes per day for the last 3 years Alcohol: Denies Drugs: Smokes marijuana daily, denies using any other drugs. Review of Systems Constitutional: Yes: Malaise; No: Fever, Chills, Sweats, Weakness, Other Eyes: No: Pain, Vision change, Conjunctivae inflammation, Eyelid inflammation, Other, Redness ENT: Nose discharge, Throat pain; No: Ear pain, Ear discharge, Nose pain, Nose congestion, Mouth pain, Mouth swelling, Throat swelling, Other Respiratory: Cough, SOB with excertion; No: Dry, Shortness of breath, Wheezing, Hemoptysis, Pleuritic Pain, Sputum, Wheezing, Other Cardiovascular: No: Chest Pain, Palpitations, Orthopnea, Paroxysmal Noc. Dyspnea, Edema, Lt Headedness, Other Gastrointestinal: Nausea, Diarrhea; No: Vomiting, Abdominal Pain, Constipation, Melena, Hematochezia, Other Genitourinary: No Dysuria, No Frequency, No Incontinence, No Hematuria, No Retention, No Other Musculoskeletal: No: other, neck pain, shoulder pain, arm pain, back pain, hand pain, leg pain, foot pain Skin: No: Rash, Lesions, Jaundice, Bruising, Other Neurological: Other (Notes some dizziness and vertigo, new); No: Weakness, Numbness, Incoordination, Change in speech, Confusion, Seizures Allergies: Coded Allergies: Tetracycline (Verified Allergy, Intermediate, 03/09/14) Codeine (Verified Allergy, Unknown, Itchiness, 01/05/19) Erythromycin (Verified Allergy, Unknown, 12/16/16) Medications Current Medications Medications Dose Ordered Sig/Leon Route Start Time Stop Time Status Last Admin Dose Admin Enoxaparin Sodium 30 mg DAILY SC 08/31/24 10:00 UNV Ipratropium [place] 0.5 mg Q6HPRN PRN NEB 08/31/24 02:30 UNV Levalbuterol HCl 0.625 mg Q6HR NEB 08/31/24 06:00 UNV Exam Vital Signs Vital Signs Date Time Temp Pulse Resp B/P (MAP) Pulse Ox O2 Delivery O2 Flow Rate FiO2 08/31/24 02:00 72 16 151/55 (87) 96 08/31/24 00:00 98.9 98.9 08/30/24 19:25 Room Air* 0 21 General Appearance: Alert, Oriented X3, Cooperative HEENT: Atraumatic, PERRLA, EOMI Respiratory: Other (Diffuse bilateral wheezing) Cardiovascular: Regular rate, Other (Murmur heard loudest in the aortic area) Abdominal: Normal bowel sounds, Soft, No tenderness Extremities: No cyanosis, Other (1+ lower extremity edema) Skin: No significant lesion Neuro: Normal speech, Sensation intact Psych/Mental Status: Mental status NL, Mood NL Labs/Xrays Labs Test 08/30/24 17:27 08/30/24 16:01 08/30/24 16:00 Range/Units White Blood Count 8.3 4.4-10.8 10^3/uL Red Blood Count 3.81 L 4.0-5.20 10^6/uL Hemoglobin 13.1 12.2-16.2 g/dL Hematocrit 39.5 36.0-46.0 % Mean Corpuscular Volume 103.5 H 80.0-100.0 fL Mean Corpuscular Hemoglobin 34.3 H 28.0-32.0 pg Mean Corpuscular Hemoglobin Concent 33.2 32.0-36.0 g/dL Red Cell Distribution Width 13.5 11.8-14.3 % Platelet Count 65 L 140-450 10^3/uL Mean Platelet Volume 9.2 6.9-10.8 fL Neutrophils (%) (Auto) 76.5 37.0-80.0 % Lymphocytes (%) (Auto) 14.3 10.0-50.0 % Monocytes (%) (Auto) 7.7 0.0-12.0 % Eosinophils (%) (Auto) 1.0 0.0-7.0 % Basophils (%) (Auto) 0.5 0.0-2.0 % Neutrophils # (Auto) 6.3 1.6-8.6 10 ^3/uL Lymphocytes # (Auto) 1.2 0.4-5.4 10 ^3/uL Monocytes # (Auto) 0.6 0-1.3 10 ^3/uL Eosinophils # (Auto) 0.1 0-0.8 10 ^3/uL Basophils # (Auto) 0 0-0.2 10 ^3/uL Nucleated Red Blood Cells 0.1 % Sodium Level 143 136-145 mmol/L Potassium Level 3.6 3.5-5.1 mmol/L Chloride Level 113 H 98-107 mmol/L Carbon Dioxide Level 22 20-31 mmol/L Anion Gap 8 5-15 Blood Urea Nitrogen 10 9-23 mg/dL Creatinine 1.29 H 0.550-1.02 mg/dL Glomerular Filtration Rate Calc 47 >90 mL/min BUN/Creatinine Ratio 7.8 L 10.0-20.0 Serum Glucose 133 H 74-106 mg/dL Calcium Level 10.6 H 8.7-10.4 mg/dL POC Glucose 157 H 70-106 mg/dl Urine Color Light-yellow Yellow Urine Clarity Clear Clear Urine pH 7.0 5.0-9.0 Urine Specific [place] 1.011 1.001-1.035 Urine Protein Negative Negative Urine Ketones Negative Negative Urine Blood 1+ H Negative /uL Urine Nitrite Negative Negative Urine Bilirubin Negative Negative Urine Urobilinogen Normal Negative mg/dL Urine Leukocyte Esterase Negative Negative /uL Urine RBC 1 0 - 4 /hpf Urine Microscopic WBC 1 0-5 /HPF Urine Squamous Epithelial Cells Few <5 /hpf Urine Bacteria None seen None Seen /hpf Urine Glucose Normal Normal mg/dL Assessment/Plan Assessment/Plan Breakthrough seizure vs psychogenic nonepileptic seizures vs neurocardiogenic syncope? - IV Keppra loading dose once - seizure precautions - aspiration precautions - NPO - swallow evaluation - neurology consulted - resumed home med keppra 750mg bid Acute on chronic CHF exacerbation Coronary artery disease, left heart catheterization done in 2019 History of moderate mitral regurgitation Hypertension Dyslipidemia History of atrial flutter History of infective endocarditis in 2023 treated at [facility] - BNP 2583 - CXR: Mild cardiomegaly. Indwelling pacemaker. Haziness seen in the right lower zone probable infiltrate. Thickening of the right horizontal fissure. - ordered CT chest - IV furosemide 40 mg daily - resumed home medication losartan - currently holding, but resume home medication carvedilol as tolerated - resumed home medication Eliquis 5 mg b.i.d. - ordered echo S/p pacemaker due to symptomatic bradycardia - pacemaker interrogation COPD, currently stable - ipratropium and levalbuterol med nebs as needed q.6 hours History of subdural hematoma with evacuation in 2014 - monitor CKD stage 2-3? - monitor Chronic fatigue syndrome - resumed home medication [place] 5 t.i.d. as needed PUD prophylaxis: protonix 40mg Goals of care: Full code, discussed for >16 minutes on 08/31/2024 Plan discussed with patient Plan discussed with Dr. Vega Plan discussed with: Patient, Other (RN) My Orders Orders - MELA ACEVEDO RESIDENT Procedure Category Date Status Time Admit ADMIT 08/31/24 Transmitted 02:04 Allergies JAMILA 08/31/24 In Process 02:04 Code Status CODE 08/31/24 Transmitted 02:04 Fall Risk Precautions JAMILA 08/31/[address] 02:04 Complete Blood Count LAB 09/01/24 Verified 04:00 Comprehensive LAB 09/01/24 Verified Metabolic Panel 04:00 Npo (Nothing By DIET 08/31/24 Transmitted Mouth) Diet Breakfast Pt Request For Service PT 08/31/24 Logged 02:04 * Swallow Request ST 08/31/24 Transmitted 02:04 Condition: Unstable JAMILA 08/31/24 In Process 02:04 Enoxaparin Sodium PHA 08/31/24 Pending (Lovenox) 10:00 Notify Of Changes JAMILA 08/31/24 In Process From Base 02:04 Electrocardigram EKG 08/31/24 Logged 02:04 Creatine Kinase LAB 08/31/24 Logged 02:04 Albumin LAB 08/31/24 Logged 02:04 Lactic Acid W/ Reflex LAB 08/31/24 Logged Order 02:04 * Neurology Consult CONS 08/31/24 Transmitted 02:04 Rapid Influenza A&B LAB 08/31/24 Logged 02:04 Covid19 Antigen Radha LAB 08/31/24 Logged Drug Screen LAB 08/31/24 Logged 02:11 Seizure Precautions ED NURSING 08/31/24 Transmitted Strict Aspiration JAMILA 08/31/24 In Process Precautions 02:11 Chest Portable XY 08/31/24 Logged 02:20 B-Type Natriuretic LAB 08/31/24 Logged Peptide 02:20 Ipratropium Medneb PHA 08/31/24 Logged (Atrovent Medneb) 02:30 Levalbuterol Hcl PHA 08/31/24 Logged (Xopenex Medneb) 06:00 Date of Service: Aug 31, 2024 Billing Provider: ROXANA VEGA MD Common Visit Codes: [id number] INP/OBS CARE (HIGH) MELA ACEVEDO RESIDENT Aug 31, 2024 02:23 ROXANA VEGA MD Sep 06, 2024 22:10
[2024-08-31 02:56] LABS: Albumin 3.6 g/dL (3.2-4.8)
[2024-08-31 03:43] LABS: COVID19 ANTIGEN SOFIA FIA NEGATIVE (NEGATIVE); Rapid Influenza A Negative (Negative); Rapid Influenza B Negative (Negative)
--- NOTE | 2024-08-31 04:02 | DVH ---
Examination: CXRP Clinical Indication: hx of CHF and COPD Comparison: None. Technique: Frontal radiograph of the chest was obtained. Findings: Mild cardiomegaly. Indwelling pacemaker. Haziness is seen in the right lower zone probable an infiltrate. Thickening of the right horizontal fissure is seen. Rest of the Lungs are clear and well expanded with no pulmonary infiltrate or pleural effusion. There is no pneumothorax. The cardiomediastinal silhouette is within normal limits. No acute osseous abnormality is seen. Impression: 1. Mild cardiomegaly. 2. Indwelling pacemaker. 3. Haziness is seen in the right lower zone probable infiltrate. 4. Thickening of the right horizontal fissure is seen. 5. Suggest further evaluation with CT study. Electronically Signed 08/31/2024 04:01 Khai Valentin
[2024-08-31] MEDS ORDERED: IPRATROPIUM BROM 0.5 MG/2.5ML INH SOL NEB ONE (05:45)
[2024-08-31] MEDS ORDERED: ALBUTEROL SULF 2.5 MG/0.5ML(0.5%) NEB SOLN NEB ONE (05:45)
[2024-08-31] MEDS ORDERED: SODIUM CHLORIDE 0.9% 500 ML IV ONE (05:45)
[2024-08-31] MEDS: FUROSEMIDE 40 MG/4 ML VIAL IV SCH (05:48)
[2024-08-31] MEDS: IPRATROPIUM BROM 0.5 MG/2.5ML INH SOL NEB PRN (06:38)
[2024-08-31] MEDS: LEVALBUTEROL HCL 1.25 MG/3 ML NEB NEB SCH (06:38)
[2024-08-31] MEDS ORDERED: LORazepam 2MG/ML-1ML VIAL IV PRN ×2 (07:15→10:45)
--- NOTE | 2024-08-31 07:54 | ECG ---
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
--- NOTE | 2024-08-31 08:26 | DVH ---
Procedure: CT CHEST WITHOUT CONTRAST Reason for study/Clinical History: Right lower zone infiltrate Comparison Study: Chest radiograph performed on 08/31/2024. Exam Date: 08/31/2024 06:06 AM TECHNIQUE: Multidetector CT of the chest was performed from the lung apices to the upper abdomen with out the use of intravenous contract. Axial, coronal and sagittal multiplanar reformats were performed . Radiation Dose Information: CT Dose: CTDI volume is 7.72 mGy. Dose-length product is 294.13 mGy*cm The dose indicators for CT are the volume Computed Tomography (CT) Dose Index (CTDIvol) and the Dose Length Product (DLP), and are measured in units of mGy and mGy-cm, respectively. These indicators are not patient dose, but values generated from the CT scanner acquisition factors. The report includes radiation exposure data for exposures received during this examination. FINDINGS: Lower neck: Normal thyroid. Lungs: Right upper lobe infiltrate noted. Right lower lobe passive atelectasis. Left lower lobe pass steffi atelectasis. Central airways: Patent. Pleura: No pleural effusion or significant pneumothorax. Heart/Vascular Structures: Left chest wall pacemaker noted. Normal heart size. No pericardial effusio n. Lymph Nodes: No adenopathy Musculoskeletal: No acute osseous abnormality. Status post median sternotomy. Soft tissues: Normal. Upper abdomen: Limited portions of the upper abdomen are unremarkable. Chest wall: There is fat containing left posterolateral wall hernia. IMPRESSION: 1. Right upper lobe infiltrate which may reflect pneumonia in the appropriate clinical setting. 2. Cardiomegaly. 3. Small bilateral pleural effusions and passive atelectasis in the lower lobes. Radiation optimization: All CT scans at this facility use at least one of these dose optimization florencia hniques: automated exposure control mA and/or kV adjustment per patient size (includes targeted exam s where dose is matched to clinical indication) or iterative reconstruction.
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
--- NOTE | 2024-08-31 09:17 | DVHINCON2 ---
Date of service: Aug 31, [address] Hunt Reason for Consultation Seizure vs PNES? History of Present Illness Ms. Mattson is a 64 years old right-handed female with a history of hypertension, dyslipidemia, congestive heart failure, cardiomegaly, COPD, kidney stone, s/p tetralogy or Fallot repair, she was brought to the [facility] on 08/30/2024 with a chief company of seizure activity. At this time, she was awake, oriented x4, but is not a very good historian. After time spent with her, the following information was obtained When she was sitting and eating lunch with her room with on 08/30/2024, she had woozy feeling, her eyes were moving from [id number] but not able to see anything, she was said blank face, she claimed that she was confused, but she did not lose her consciousness. ER note mentioned the patient was was eating in the restaurant, where she developed drooling, and she zoned out for about 2-3 minutes The 1st similar event happened in 1988, but she did not have 2nd one until 2024. So far she has had three events in 2024 For a while, the patient was smells alcohol intermittently every single day without altered mental status She denies a history of traumatic brain injury, intracranial infection, or family history of seizure disorder Falls for she was tingling, swelling in the lower extremities since the end of 07/2024 Urinalysis, 08/30/2024: WBC: 1, urine leukocyte esterase: Negative WBC/HB/PLT/MCV, 08/30/2024: 8.3/13.1/65/103.5 BUN/CR, 08/30/2024: 10/1.29 CT head, 08/30/2024: No acute intracranial abnormality CT chest, 08/31/2024:1. Right upper lobe infiltrate which may reflect pneumonia in the appropriate clinical setting. 2. Cardiomegaly. 3. Small bilateral pleural effusions and passive atelectasis in the lower lobes Past Medical History Hypertension, dyslipidemia, congestive heart failure, cardiomegaly, COPD, kidney stone, seizure Past Surgical History , hysterectomy, pacemaker insertion, tubal ligation, tetralogy or [place] repair Family History: Cardiovascular disease G8 FATHER Diabetes mellitus COUSIN FHx: ovarian cancer G8 MOTHER GRANDMOM Family History Hypertension, diabetes, sickle cell disease, cancer, no seizure disorder Social History She was a tobacco smoker, but no history of alcohol or drug abuse Allergies: Coded Allergies: Tetracycline (Verified Allergy, Intermediate, 03/09/14) Codeine (Verified Allergy, Unknown, Itchiness, 01/05/19) Erythromycin (Verified Allergy, Unknown, 12/16/16) Home Meds Reported Medications Hydrocortisone Base (Hydrocortisone) 2.5 % Cre, 1 APPLIC TOP BID PRN PRN for HEMMORROID DISCOMFORT for 30 Days, #30 08/31/24 Naloxone HCl (Naloxone Hydrochloride) 4 Mg/0.1 Ml Spr, 1 SPRAY VEGA UD for 30 Days, #2 08/31/24 Metoclopramide HCl (Metoclopramide Hydrochlor) 10 Mg Tab, 1 TAB PO BID for 30 Days, #60 08/31/24 Apixaban Base (ELIQUIS) 5 Mg Tab, 1 TAB PO BID for 30 Days, #60 08/31/24 Ferrous Sulfate (Ferosul) 325 Mg Tab, 1 TAB PO BID for 30 Days, #60 08/31/24 Escitalopram Oxalate (ESCITALOPRAM OXALATE) 20 Mg Tab, 1 TAB PO DAILY for 30 Days, #30 08/31/24 Trazodone Hcl (Trazodone Hcl) 100 Mg Tab, 1 TAB PO DAILY for 30 Days, #30 08/31/24 Lansoprazole (Lansoprazole Dr) 30 Mg Cap, 1 CAP PO DAILY for 30 Days, #30 08/31/24 Furosemide (Furosemide) 40 Mg Tab, 1 TAB PO DAILY for 30 Days, #30 08/31/24 Docusate Sodium (Docusate Sodium) 100 Mg Cap, 1 CAP PO TID for 30 Days, #90 08/31/24 Potassium Chloride (Potassium Chloride ER) 10 Meq Tab, 1 TAB PO DAILY for 30 Days, #30 08/31/24 Hydrocodone-Acetaminophen (Hydrocodone/Acetaminophen 7.5-325 mg) 1 Tab Tab, 1 TAB PO BID for 30 Days, #60 08/31/24 Lidocaine (Ztlido) 1.8 % Pad, 1 PATCH TOP DAILY for 30 Days, #30 08/31/24 Cyclobenzaprine HCl (Cyclobenzaprine Hydrochlo) 10 Mg Tab, 1 TAB PO DAILY for 30 Days, #30 08/31/24 Fluoxetine HCl (Fluoxetine HCl) 20 Mg Cap, 1 CAP PO DAILY for 30 Days, #30 08/31/24 Topiramate (Topiramate) 200 Mg Tab, 1 TAB PO BID for 30 Days, #60 08/31/24 Carvedilol (Carvedilol) 6.25 Mg Tab, 1 TAB PO BID for 30 Days, #60 01/05/19 Losartan Potassium (Losartan Potassium) 100 Mg Tab, 1 TAB PO DAILY for 30 Days, #30 01/05/19 Simvastatin (Simvastatin) 20 Mg Tab, 1 TAB PO DAILY for 30 Days, #30 01/05/19 Magnesium Oxide (Magnesium Oxide) 400 Mg Cap, 1 CAP PO DAILY for 30 Days, #30 01/05/19 Discontinued Reported Medications Topiramate (Topiramate) 100 Mg Tab, 200 MG PO BID for 30 Days, MG 01/05/19 Current Medications Current Medications Medications (Trade) Dose Ordered Sig/Leon Route PRN Reason Start Time Stop Time Status Last Admin Enoxaparin Sodium (Lovenox) 30 mg DAILY SC 08/31/24 10:00 08/31/24 05:43 DC Ipratropium [place] (Atrovent Medneb) 0.5 mg Q6HPRN PRN NEB SHORTNESS OF BREATH 08/31/24 02:30 08/31/24 06:38 Levalbuterol HCl (Xopenex Medneb) 0.625 mg Q6HR NEB 08/31/24 06:00 08/31/24 06:38 Furosemide (Lasix Injection) 40 mg DAILY IV 08/31/24 04:00 08/31/24 05:48 Pantoprazole Sodium (Protonix Tablet) 40 mg DAILY PO 08/31/24 10:00 Topiramate (Topamax) 200 mg BID PO 08/31/24 10:00 08/31/24 05:23 DC Losartan Potassium (Cozaar Tablet) 100 mg DAILY PO 08/31/24 10:00 Acetaminophen/ Hydrocodone Bitart ([place] 5/325MG Tab) 1 tab Q8HPRN PRN PO MODERATE PAIN (4-6 PAIN SCALE) 08/31/24 05:45 Apixaban (Eliquis) 5 mg BID PO 08/31/24 10:00 Future Hold Lorazepam (Ativan Inj) 1 mg Q5MINP PRN IV SEIZURES 08/31/24 07:15 Levetiracetam (Keppra Tablet) 750 mg BID PO 08/31/24 10:00 UNV Review of Systems As above, the other systems are negative Vital Signs Vital Signs Date Time Temp Pulse Resp B/P (MAP) Pulse Ox O2 Delivery O2 Flow Rate FiO2 08/31/24 07:53 76 08/31/24 06:48 16 100 08/31/24 06:38 Room Air 08/31/24 06:38 0 21 08/31/24 06:00 148/72 (97) 08/31/24 02:30 98.9 98.9 Physical Exam GENERAL EXAM: General: the patient is well developed and nourished. No acute distress. HEENT: Normocephalic, neck is supple, no carotid bruits. No mass. RESPIRATORY: Normal respiratory effort with symmetrical lung expansion. Lungs clear to auscultation. CARDIOVASCULAR: Regular rate and rhythm with no murmurs. S1, S2. ABDOMEN: Soft, nontender, normal bowel sound MUSCULOSKELETAL EXAM: Swelling in both legs NEUROLOGICAL: MENTAL STATUS: Awake and alert. Oriented to person, place, time and general circumstances. Able to give personal history. SPEECH, LANGUAGE, HIGHER CORTICAL FUNCTION: no aphasia or dysathria. CRANIAL NERVES: #2: Intact visual segura to confrontation. The optic discs were sharp. #3,4,6: Pupils are equal, round and reactive. EOMs full and conjugate. No nystagmus. #5: Facial sensation intact in all three divisions bilaterally. Mandibular strength intact. #7: Facial muscles symmetrical and strength intact. #8: Hearing grossly normal to voice. #9,10: Uvula and soft palate rise in the midline. Swallow and voice are normal. #11: Trapezius and sternomastoid strength intact bilaterally. #12: Tongue midline. No fasciculations or atrophy. SENSATION: Sensation to touch and pinprick is normal. MOTOR: Normal tone in the upper and lower extremity. Normal muscle bulk. No fasciculations. No abnormal movements or posturing. Muscle strength of the major groups in the upper extremities is 5/5. Muscle strength of the major groups in the lower extremities is 5/5. REFLEXES: Deep tendon reflexes normal and symmetrical. No pathological reflexes. CEREBELLAR/COORDINATION: Finger to nose is normal bilaterally. GAIT/STATION: deferred. Labs/Diagnostic Data Labs Test 08/31/24 02:48 08/31/24 02:28 08/30/24 17:27 08/30/24 16:01 Range/Units Influenza Type A Antigen Negative Negative Influenza Type B Antigen Negative Negative SARS-CoV-2 Antigen (Rapid) Negative NEGATIVE D-Dimer, Quantitative 0.39 0.0-0.49 mg/L FEU Lactic Acid Level 1.0 0.4-2.0 mmol/L Creatine Kinase 18 L 34-145 U/L B-Type Natriuretic Peptide 2583.45 0-100 pg/mL Albumin 3.6 3.2-4.8 g/dL White Blood Count 8.3 4.4-10.8 10^3/uL Red Blood Count 3.81 L 4.0-5.20 10^6/uL Hemoglobin 13.1 12.2-16.2 g/dL Hematocrit 39.5 36.0-46.0 % Mean Corpuscular Volume 103.5 H 80.0-100.0 fL Mean Corpuscular Hemoglobin 34.3 H 28.0-32.0 pg Mean Corpuscular Hemoglobin Concent 33.2 32.0-36.0 g/dL Red Cell Distribution Width 13.5 11.8-14.3 % Platelet Count 65 L 140-450 10^3/uL Mean Platelet Volume 9.2 6.9-10.8 fL Neutrophils (%) (Auto) 76.5 37.0-80.0 % Lymphocytes (%) (Auto) 14.3 10.0-50.0 % Monocytes (%) (Auto) 7.7 0.0-12.0 % Eosinophils (%) (Auto) 1.0 0.0-7.0 % Basophils (%) (Auto) 0.5 0.0-2.0 % Neutrophils # (Auto) 6.3 1.6-8.6 10 ^3/uL Lymphocytes # (Auto) 1.2 0.4-5.4 10 ^3/uL Monocytes # (Auto) 0.6 0-1.3 10 ^3/uL Eosinophils # (Auto) 0.1 0-0.8 10 ^3/uL Basophils # (Auto) 0 0-0.2 10 ^3/uL Nucleated Red Blood Cells 0.1 % Sodium Level 143 136-145 mmol/L Potassium Level 3.6 3.5-5.1 mmol/L Chloride Level 113 H 98-107 mmol/L Carbon Dioxide Level 22 20-31 mmol/L Anion Gap 8 5-15 Blood Urea Nitrogen 10 9-23 mg/dL Creatinine 1.29 H 0.550-1.02 mg/dL Glomerular Filtration Rate Calc 47 >90 mL/min BUN/Creatinine Ratio 7.8 L 10.0-20.0 Serum Glucose 133 H 74-106 mg/dL Calcium Level 10.6 H 8.7-10.4 mg/dL POC Glucose 157 H 70-106 mg/dl Test 08/30/24 16:00 Range/Units Urine Color Light-yellow Yellow Urine Clarity Clear Clear Urine pH 7.0 5.0-9.0 Urine Specific [place] 1.011 1.001-1.035 Urine Protein Negative Negative Urine Ketones Negative Negative Urine Blood 1+ H Negative /uL Urine Nitrite Negative Negative Urine Bilirubin Negative Negative Urine Urobilinogen Normal Negative mg/dL Urine Leukocyte Esterase Negative Negative /uL Urine RBC 1 0 - 4 /hpf Urine Microscopic WBC 1 0-5 /HPF Urine Squamous Epithelial Cells Few <5 /hpf Urine Bacteria None seen None Seen /hpf Urine Glucose Normal Normal mg/dL Assessment Partial complex seizure Olfactory hallucination ?Partial simple seizure Macrocytosis Plan/Recommendation Monitoring Supportive treatment Telemetry UDS Vitamin B12, folic acid EEG MR brain scan Okay to use Keppra 750mg bid for seizure control Ativan for seizure breakthrough More recommendation per clinical course Plan discussed with: Patient, Other MISAEL ROSARIO MD Aug 31, 2024 09:17
[2024-08-31] MEDS ORDERED: APIXABAN 5 MG TAB PO SCH (10:00)
[2024-08-31] MEDS ORDERED: ENOXAPARIN SOD 30 MG/0.3 ML SYRINGE SC SCH (10:00)
[2024-08-31] MEDS ORDERED: TOPIRAMATE 100 MG TAB PO SCH (10:00)
[2024-08-31 11:17] LABS: Folate (Folic Acid) 6.85 ng/mL (>5.38)
[2024-08-31] MEDS: PANTOPRAZOLE 40 MG TAB PO SCH (12:22)
[2024-08-31] MEDS: APIXABAN 5 MG TAB PO SCH (12:22)
[2024-08-31] MEDS: levETIRAcetam 500 MG TAB PO SCH (12:24)
[2024-08-31] MEDS: LOSARTAN POTASSIUM 50 MG TAB PO SCH (12:24)
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
[2024-09-01] VITALS (16 sets, daily range): BP systolic 128–165; BP diastolic 43–78; PULSE 59–110; RESP 16–20; TEMP 98–98.6; O2SAT 94–100
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
[2024-09-01 07:35] LABS: Eosinophils # (auto) 0.2 10 ^3/uL (0-0.8); Hemoglobin 12.4 g/dL (12.2-16.2); Lymphocytes # (auto) 2.4 10 ^3/uL (0.4-5.4); Monocytes # (auto) 0.8 10 ^3/uL (0-1.3); Nucleated Red Blood Cells % 0.2 %; Red Cell Distribution Width 13.3 % (11.8-14.3)
[2024-09-01 07:37] LABS: Basophils # (auto) 0 10 ^3/uL (0-0.2); Basophils % (auto) 0.5 % (0.0-2.0); Eosinophils % (auto) 2.4 % (0.0-7.0); Hematocrit 36.4 % (36.0-46.0); Lymphocytes % (auto) 31.9 % (10.0-50.0); Mean Corpuscular Hemoglobin 34.4 pg (28.0-32.0); Mean Corpuscular Hgb Conc. 34.1 g/dL (32.0-36.0); Mean Corpuscular Volume 100.7 fL (80.0-100.0); Neutrophils # (auto) 4.1 10 ^3/uL (1.6-8.6); Neutrophils % (auto) 54.2 % (37.0-80.0); Red Blood Cells 3.61 10^6/uL (4.0-5.20); White Blood Cell 7.6 10^3/uL (4.4-10.8)
[2024-09-01 07:39] LABS: Albumin 3.4 g/dL (3.2-4.8); Alkaline Phosphatase 78 U/L (46-116); Anion Gap 9 (5-15); Aspartate Aminotransferase 13 U/L (13-40); Blood Urea Nitrogen 12 mg/dL (9-23); Calcium 10.3 mg/dL (8.7-10.4); Carbon Dioxide 22 mmol/L (20-31); Sodium 144 mmol/L (136-145)
[2024-09-01 07:40] LABS: Bilirubin, Total 0.6 mg/dL (0.2-1.0)
[2024-09-01 07:41] LABS: Alanine Aminotransferase < 9 U/L (7-40); Chloride 113 mmol/L (98-107); Glucose 108 mg/dL (74-106); Potassium 3.2 mmol/L (3.5-5.1); Total Protein 5.6 g/dL (5.7-8.2)
[2024-09-01 07:47] LABS: Platelet Count (auto) 62 10^3/uL (140-450)
[2024-09-01] MEDS: SODIUM CHL 0.9% 50 ML IV SCH (10:39)
[2024-09-01] MEDS: POTASSIUM CHL 20MEQ/50ML 50 ML IV SCH (10:39)
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
--- NOTE | 2024-09-01 19:19 | DVHSR ---
APPROVED REPORT EXAM: Two-dimensional and M-mode echocardiogram with Doppler and color Doppler. Blood Pressure: 148/43 mmHg INDICATION Heart Failure Surgery/Intervention Pacemaker: CABG: RISK FACTORS Height: 5'3", Weight: 135 DIMENSIONS LVDd4.5 (3.8-5.7cm)LA (2D)4.8 (1.9-4.0cm)Aortic Root2.9 (2.0-3.7cm) LVDs3.8 (2.5-4.0cm)LA (MM) (1.9-4.0cm)Aortic Cusp Exc0.5 (1.5-2.0cm) EF (%) 33.0 (55-70%)Rt. Atrium4.8 (1.9-4.0cm)Asc. Aorta cm IVSd1.5 (0.7-1.1cm)RV (D)4.7 (1.8-2.4cm) PWd1.0 (0.7-1.1cm) Mitral Valve MitralMitral Stenosis E/A ratio0.02D MVAcm2 Aortic Valve Aortic ValveAortic Stenosis V11.33m/Johnathan Mean GR.28mmHg V23.46m/Johnathan Peak GR.48mmHg LVOT Diameter1.8 (1.8-2.4cm)Doppler AVA0.98cm2 2D AVA0.97cm2 AI P 1/2 Fdeg827.79ms Pulmonic Valve V21.20m/s Tricuspid Valve TR Velocity3.18m/s PREL27yoCg Other Information Quality : Technically LimitedRhythm : Technically limited study due to CABG. Conclusion Left ventricle: Left ventricle was mildly dilated. Concentric left ventricular hypertrophy was seen. Diffuse hypokinesis of left ventricle was seen. LVEF was 30-35%. Right ventricle was dilated with preserved systolic function. Both atria were moderately dilated. P acing wire was seen in right-sided chambers. Aortic valve: Aortic valve was trileaflet with reduced opening. Ggrjoaxr-hp-gcvprw aortic stenosis was seen. Peak/mean pressure gradient across aortic valve was 49/29 mmHg. Calculated aortic valve a leonid (continuity formula) was 1 cm. Planninometry aortic valve also revealed aortic valve area of 1 c m. At least moderate aortic insufficiency was observed. Mitral valve revealed thickened/calcified tips in favor of rheumatic disease. At least moderate mitr al regurgitation was observed. Component of mitral stenosis can not be ruled out. Tricuspid valve r evealed dsonunmm-kx-jujsab regurgitation. Pulmonary valve revealed moderate pulmonary insufficiency. Right ventricular systolic pressure was assessed at 58 mm Hg. IVC was normal-sized with reduced resp iratory variation. There was no pericardial effusion Impression: Significantly reduced left ventricular systolic function. Valvular heart disease compat ible with rheumatic disease. Questionable significant aortic/mitral/tricuspid disease. Consider ANA for further evaluation.
[2024-09-01] MEDS: HYDROcodone-ACET 5/325MG TAB PO PRN (21:40)
[2024-09-02] VITALS (16 sets, daily range): BP systolic 131–161; BP diastolic 64–78; PULSE 68–110; RESP 16–20; TEMP 97.8–98.7; O2SAT 94–100
--- NOTE | 2024-09-02 01:05 | DVHPN2 ---
Progress Note - Dictate Date Seen: Sep 01, 2024 Has the PT tested + for MRSA If YES, has PT been informed?: No Medical Necessity Reason Pt with a Central, PICC or Fol: No Subjective Ms. Mattson is a 64 years old right-handed female with a history of hypertension, dyslipidemia, congestive heart failure, cardiomegaly, COPD, kidney stone, s/p tetralogy or Fallot repair, she was brought to the [facility] on 08/30/2024 with a chief company of seizure activity. I have seen and examined the patient, talked to her nurse, she was doing fine, she reports no seizure activity there is no new complaint Urinalysis, 08/30/2024: WBC: 1, urine leukocyte esterase: Negative WBC/HB/PLT/MCV, 08/30/2024: 8.3/13.1/65/103.5 BUN/CR, 08/30/2024: 10/1.29 Vitamin B12, 08/2024: 816 Folic acid, 08/2024: 6.85 Echocardiogram, 09/01/2024: Significantly reduced left ventricular systolic function. Valvular heart disease compatible with rheumatic disease. Questionable significant aortic/mitral/tricuspid disease. Consider ANA for further evaluation. CT head, 08/30/2024: No acute intracranial abnormality CT chest, 08/31/2024:1. Right upper lobe infiltrate which may reflect pneumonia in the appropriate clinical setting. 2. Cardiomegaly. 3. Small bilateral pleural effusions and passive atelectasis in the lower lobes vital signs Vital Sign Date Time Temp Pulse Resp B/P (MAP) Pulse Ox O2 Delivery O2 Flow Rate FiO2 09/02/24 00:26 80 18 100 09/02/24 00:18 Room Air 09/02/24 00:18 0 21 09/01/24 21:00 98.2 141/78 (99) 98.2 Total Intake and Output 09/01/24 09/01/24 09/02/24 14:59 22:59 06:59 Intake Total 460 ml Output Total 250 ml Balance 210 ml medications Current Medications Medications Dose Ordered Sig/Leon Route Start Time Stop Time Status Last Admin Dose Admin Ipratropium [place] 0.5 mg Q6HPRN PRN NEB 08/31/24 02:30 09/02/24 00:18 0.5 MG Levalbuterol HCl 0.625 mg Q6HR NEB 08/31/24 06:00 09/02/24 00:18 0.625 MG Furosemide 40 mg DAILY IV 08/31/24 04:00 08/31/24 15:47 40 MG Pantoprazole Sodium 40 mg DAILY PO 08/31/24 10:00 09/01/24 10:55 40 MG Losartan Potassium 100 mg DAILY PO 08/31/24 10:00 09/01/24 10:56 100 MG Acetaminophen/ Hydrocodone Bitart 1 tab Q8HPRN PRN PO 08/31/24 05:45 09/01/24 21:40 1 TAB Lorazepam 1 mg Q5MINP PRN IV 08/31/24 07:15 Levetiracetam 750 mg BID PO 08/31/24 10:00 09/01/24 21:40 750 MG Apixaban 5 mg BID PO 08/31/24 10:00 09/01/24 21:40 5 MG Lorazepam 1 mg ONCE PRN IV 08/31/24 10:45 objective General: the patient is well developed and nourished. No acute distress. MENTAL STATUS: Awake and alert. Oriented to person, place, time and general circumstances. Able to give personal history. SPEECH, LANGUAGE, HIGHER CORTICAL FUNCTION: no aphasia or dysathria. CRANIAL NERVES: Pupils are equal, round and reactive. EOMs full and conjugate. No nystagmus. Facial sensation intact in all three divisions bilaterally. Mandibular strength intact. Facial muscles symmetrical and strength intact. SENSATION: Sensation to touch and pinprick is normal. MOTOR: Normal tone in the upper and lower extremity. Normal muscle bulk. No fasciculations. No abnormal movements or posturing. Muscle strength of the major groups in the extremities is 5/5. REFLEXES: Deep tendon reflexes normal and symmetrical. No pathological reflexes. CEREBELLAR/COORDINATION: Finger to nose is normal bilaterally. GAIT/STATION: deferred. laboratory and microbiology Laboratory Tests 09/01/24 06:09 Test 09/01/24 06:09 Range/Units Serum Glucose 108 H 74-106 mg/dL Problem List Partial complex seizure Olfactory hallucination ?Partial simple seizure Macrocytosis Assessment/Plan Monitoring Supportive treatment Telemetry UDS EEG MR brain scan Keppra 750mg bid Ativan for seizure breakthrough More recommendation per clinical course This medical document was created using an electronic medical record system with [employer] dictation system. Although this document has been carefully reviewed, there may still be some phonetic and typographical errors. These areas are purely typographical due to imperfections of the software programs, and do not reflect any compromise in the patient's medical care. Prognosis poor Plan discussed with: Patient, Other Total Time (mins): 35 MISAEL ROSARIO MD Sep 02, 2024 01:05
--- NOTE | 2024-09-02 01:11 | DVHEEG2 ---
Neurology EEG Procedural Note Procedural Note EXAM DATE: 09/01/24 REFERRING DOCTOR: Dr. Rosario TECHNIQUE: Eighteen channels of EEG, 2 channels of EOG, and 1 channel of EKG were recorded using the International 10/20 system. CLINICAL DATA: The patient was referred for an EEG evaluation for the evidence of seizure disorder. MEDICATIONS: See chart BACKGROUND ACTIVITY: There was significant amount of electrode artifacts in the recording. While the patient was awake, the background activity consisted of fairly regulated 9-10 Hz rhythmic waveforms, symmetrically distributed over both posterior quadrants and was reactive to eye opening. ACTIVATION: Hyperventilation: Not done Photic Stimulation: Not done Sleep: Not seen IMPRESSION: This is a normal EEG. No focal, lateralized, or epileptiform features are noted. If clinically indicated to rule out a seizure disorder, recommend repeat EEG with sleep deprivation. The EKG channel showed a regular heart rate of 96 per minute [place] [address] MISAEL ROSARIO MD Sep 02, 2024 01:11
[2024-09-02 06:21] LABS: Basophils # (auto) 0.1 10 ^3/uL (0-0.2); Basophils % (auto) 0.9 % (0.0-2.0); Eosinophils # (auto) 0.2 10 ^3/uL (0-0.8); Eosinophils % (auto) 2.6 % (0.0-7.0); Hematocrit 36.4 % (36.0-46.0); Hemoglobin 12.4 g/dL (12.2-16.2); Lymphocytes # (auto) 2.4 10 ^3/uL (0.4-5.4); Lymphocytes % (auto) 32.9 % (10.0-50.0); Mean Corpuscular Hemoglobin 34.7 pg (28.0-32.0); Monocytes # (auto) 0.9 10 ^3/uL (0-1.3); Monocytes % (auto) 11.6 % (0.0-12.0); Neutrophils # (auto) 3.9 10 ^3/uL (1.6-8.6); Nucleated Red Blood Cells % 0.1 %; Platelet Count (auto) 57 10^3/uL (140-450); Red Blood Cells 3.57 10^6/uL (4.0-5.20); Red Cell Distribution Width 13.4 % (11.8-14.3); White Blood Cell 7.4 10^3/uL (4.4-10.8)
[2024-09-02 06:32] LABS: Alkaline Phosphatase 70 U/L (46-116); Anion Gap 8 (5-15); Blood Urea Nitrogen 12 mg/dL (9-23); Calcium 10.4 mg/dL (8.7-10.4); Carbon Dioxide 22 mmol/L (20-31); Sodium 143 mmol/L (136-145)
[2024-09-02 06:33] LABS: Albumin 3.3 g/dL (3.2-4.8); Aspartate Aminotransferase 13 U/L (13-40)
[2024-09-02 06:34] LABS: Alanine Aminotransferase < 9 U/L (7-40); Bilirubin, Total 0.9 mg/dL (0.2-1.0); Chloride 113 mmol/L (98-107); Glucose 107 mg/dL (74-106); Potassium 3.4 mmol/L (3.5-5.1); Total Protein 5.5 g/dL (5.7-8.2)
[2024-09-02] MEDS: SODIUM CHL 0.9% 100 ML IV ONE (07:00)
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
[2024-09-02] MEDS: POTASSIUM CHL 20MEQ/50ML 50 ML IV SCH (10:11)
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
[2024-09-02 13:26] LABS: INR 1.31 (0.9-1.15); Partial Thromboplastin Time 45.8 SEC (24.5-34.5); Prothrombin Time 13.5 sec (9.3-11.8)
[2024-09-02 15:52] LABS: Opiate Scree,Urine Neg (NEGATIVE)
[2024-09-02 15:53] LABS: Amphetamine Screen, Urine Neg (NEGATIVE); Barbiturate Scree,Urine Neg (NEGATIVE); Benzodiazephine Screen, Urine Neg (NEGATIVE); Cannabinoid Screen, Urine Pos (NEGATIVE); Cocaine Screen, Urine Neg (NEGATIVE); Phencyclidine Screen, Urine Neg (NEGATIVE)
[2024-09-02 16:47] LABS: Urine Bacteria None Seen /hpf (None Seen)
[2024-09-02] MEDS: LEVALBUTEROL HCL 1.25 MG/3 ML NEB NEB PRN (18:38)
[2024-09-02 19:33] LABS: Urine Amorphous Crystal FEW /hpf (None Seen); Urine Blood 3+ /uL (Negative); Urine Clarity Ex.Turbid (Clear); Urine Color Brown (Yellow); Urine Protein, UAD 1+ (Negative); Urine Specific Gravity 1.018 (1.001-1.035); Urine Squamous Epithelial Cell None Seen /hpf (<5); Urine Urobilinogen Normal (Negative); Urine WBC 16 /HPF (0-5); Urine WBC Clumps PRESENT /hpf (None Seen); Urine pH 7.5 (5.0-9.0)
[2024-09-03] VITALS (16 sets, daily range): BP systolic 125–164; BP diastolic 56–80; PULSE 70–102; RESP 14–24; TEMP 97.5–98.8; O2SAT 93–97
[2024-09-03] MEDS: cefTRIAXone 1GM/50ML D5W 50 ML IV ONE (01:15)
[2024-09-03 05:47] LABS: Red Cell Distribution Width 13.3 % (11.8-14.3)
[2024-09-03 05:49] LABS: Basophils # (auto) 0.1 10 ^3/uL (0-0.2); Basophils % (auto) 0.9 % (0.0-2.0); Eosinophils # (auto) 0.3 10 ^3/uL (0-0.8); Eosinophils % (auto) 3.5 % (0.0-7.0); Hematocrit 38.7 % (36.0-46.0); Hemoglobin 12.9 g/dL (12.2-16.2); Lymphocytes # (auto) 1.8 10 ^3/uL (0.4-5.4); Lymphocytes % (auto) 21.1 % (10.0-50.0); Mean Corpuscular Hemoglobin 34.2 pg (28.0-32.0); Mean Corpuscular Hgb Conc. 33.5 g/dL (32.0-36.0); Mean Corpuscular Volume 102.1 fL (80.0-100.0); Monocytes # (auto) 0.8 10 ^3/uL (0-1.3); Monocytes % (auto) 10.2 % (0.0-12.0); Neutrophils # (auto) 5.3 10 ^3/uL (1.6-8.6); Neutrophils % (auto) 64.3 % (37.0-80.0); Nucleated Red Blood Cells % 0.2 %; Platelet Count (auto) 61 10^3/uL (140-450); Red Blood Cells 3.79 10^6/uL (4.0-5.20); White Blood Cell 8.3 10^3/uL (4.4-10.8)
[2024-09-03 06:11] LABS: Anion Gap 9 (5-15); Carbon Dioxide 22 mmol/L (20-31); Potassium 3.6 mmol/L (3.5-5.1); Sodium 141 mmol/L (136-145)
[2024-09-03 06:17] LABS: BUN/Creatinine Ratio 8.8 (10.0-20.0); Blood Urea Nitrogen 10 mg/dL (9-23)
[2024-09-03 06:19] LABS: Calcium 10.6 mg/dL (8.7-10.4); Chloride 110 mmol/L (98-107); Glucose 111 mg/dL (74-106)
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
[2024-09-03] MEDS: IODIXANOL 320MG/ML 100ML BTL IV ONE (07:24)
[2024-09-03] MEDS: fentaNYL CITRATE 100 MCG/2 ML VL IV ONE (08:15)
[2024-09-03] MEDS: MIDAZOLAM HCL 2MG/2ML 2ml VIAL (1mg/ml) IV ONE (08:15)
[2024-09-03] MEDS: LIDOCAINE VISCOUS 2% 15ML UD PO ONE (08:15)
[2024-09-03] MEDS: fentaNYL CITRATE 100 MCG/2 ML VL ONE (08:35)
[2024-09-03] MEDS: ANGIOMAX 250 MG VIAL IV ONE (08:35)
[2024-09-03] MEDS: SODIUM CHL 0.9% 0 ML ONE (08:36)
[2024-09-03] MEDS: MIDAZOLAM HCL 2MG/2ML 2ml VIAL (1mg/ml) ONE (08:36)
[2024-09-03] MEDS: LIDOCAINE 2%HCL (LOCAL ANESTH.) INJ 20ML MDV ONE (08:37)
--- NOTE | 2024-09-03 10:11 | DVHOP2 ---
Operative Report Procedures performed: Left heart catheterization and bilateral coronary angiogram Moderate sedation Diagnosis: No angiographic for epicardial coronary artery disease (normal coronaries) LVEF of around 35% Nonischemic cardiomyopathy Peak to peak pressure gradient across his aortic valve was 24 mm Hg pointing toward moderate aortic stenosis (Echocardiographic/ANA planimetry of aortic valve had revealed aortic valve area of 1.1 cm: in favor of moderate aortic stenosis) Cardiac suggestions for management: Optimized medical therapy Lifestyle and risk factor modifications Guideline directed medical therapy for systolic heart failure Periodic surveillance for valvular heart disease progression Findings: LVEF: 35% LVEDP: 18 mm Hg Peak pressure gradient across the aortic valve was 24 mm Hg Left main: Left main was coming off the left sinus of Valsalva. There was no angiographic evidence of disease in Left Main. LAD: LAD was coming off the left main. It provided large D1 and D2. Xybdz-aw-rshwkk-sizes D3 was seen. LAD throughout its course and branches did not reveal angiographic evidence of disease. Ramus intermedius: Ramus intermedius was large sized vessel which came off of Left Main. There was no angiographic evidence of disease in the ramus intermedius LCX: LCX was coming off of Left Main. It was a moderate-sized vessel with no angiographic evidence of disease. RCA: RCA was coming off the right sinus of valsalva. It was the dominant vessel and provided RPDA. RCA throughout its course and branches did not reveal angiographic evidence of disease. Presentation: Patient originally presented with breakthrough seizure. She also complained of shortness of breath. Echocardiogram revealed multiple valvular disease. Findings were in favor of rheumatic valve disease. Did have transthoracic and transesophageal echocardiogram. As the patient was found to have newly decreased ejection fraction in echocardiogram, she was sent for cardiac catheterization for further evaluation. Procedure: After obtaining informed consent, the patient was brought to laborer chemical processing. She was prepped and draped in sterile fashion. Right femoral artery was used for access site. Under fluoroscopy guidance and use of a micro puncture, the right femoral artery was accessed. After angiographically proving a good access point, the micropuncture sheath was exchanged over the wire to a six Nepalese femoral sheath. A six Nepalese JL4 diagnostic catheter was used to perform left coronary angiography. A six Nepalese JR4 diagnostic catheter was used to perform right coronary angiography. A six [place]alese pigtail catheter was used to perform left heart catheterization (obtaining pressures and performed left ventriculography). It is of note that catheters crossed Aortic valve into LV easily. There was no indication for any transcatheter revascularization. There was no dissection/hematoma/perforation. Patient tolerated the procedure with no complication. Right femoral artery access site was managed by deploying an Angio-Seal device. Fluoroscopy time: 5 minutes and 20 seconds contrast: 90 mL of Visipaque ELEAZAR ADKINS MD Sep 03, 2024 10:11
--- NOTE | 2024-09-03 10:26 | DVHOP2 ---
Operative Report Trans-Esophageal Echocardiogram PROCEDURE REPORT Date of Service: 09/03/2024 [employer] Pipeline Operator: Eleazar Adkins MD PROCEDURE PERFORMED: Transesophageal echocardiogram, conscious sedation administration and supervision, more than 15 minutes. Intra cardiac bubble study. PREOPERATIVE DIAGNOSES: r/o Valvular heart disease. DESCRIPTION OF PROCEDURE: The patient signed informed consent understanding risks, benefits and alternatives of the procedure, he wished to proceed. The patient was given 15 mL of oral viscous lidocaine. She was placed in a left lateral decubitus position and conscious sedation was administered per lab director protocol (2 mg of Versed and 50 mcg of Fentanyl). I administered a bite block into her mouth and a ANA probe into the mid esophagus without any difficulties or complications. Multiple planar images were obtained. Bubble study was also performed. At the completion of procedure, ANA probe was removed and there were no immediate complications. Vitals signs were stable throughout the procedure. FINDINGS: 1. Left ventricle: LVEF was 40 - 45%. Mild diffuse hypokinesis of left ventricle was seen. 2. Right ventricle: Normal RV size with normal systolic function. 3. Left atrium: LA enlarged 4. Right atrium: RA was enlarged. Pacing wire was seen in right sided chambers 5. Mitral valve: Thickened leaflet tips and leaflet movement was in favor of rheumatic mitral disease. At most moderate Mitral regurgitation was seen. Mean/Peak pressure gradient across mitral valve (obtained through limited transthoracic veiws) were 5/9 mmHg. Mild to moderate Mitral stenosis was seen. 6. Left atrial appendage: No evidence of thrombus. 7. Aortic valve: Aortic valve was trileaflet. It had thickened leaflet tips with restricted motion in favor of Rheumatic disease. Peak / Mean pressure gradient across Aortic Valve was 58/34 mmHg. Planinometry of Aortic valve revealed Aortic Valve Area of 1.1 cm in favor of moderate Aortic Stenosis. There was moderate Aortic Insufficiency. 8. Pulmonic valve: Mild to moderate pulmonic insufficiency was seen. No significant stenosis. 9. Tricuspid valve: Moderate tricuspid regurgitation was seen. 10. Interatrial septum: Negative color flow for right to left shunt was observed. Minimal cross of bubbles to right side questions possible presence of small PFO 11. Pericardium: No significant effusion. 12. Thoracic aorta: No significant plaquing. Rheumatic Valves with Moderate disease as above. LVEF of 40 - 45% ELEAZAR ADKINS MD Sep 03, 2024 10:26
--- NOTE | 2024-09-03 10:40 | DVHNC2 ---
Procedure - About pacemaker interrogation: Pacemaker [place], leads are Medtronic Battery: 7.3 years Battery voltage: 3.01 volts Remaining capacity to GIL: 86% DDDR: 60/130 Lead impedance: A 340/V 360 Ohms Episodes: Long atrial tachycardia/atrial fibrillation episodes Normal functioning pacemaker ELEAZAR ADKINS MD Sep 03, 2024 10:40
--- NOTE | 2024-09-03 15:34 | DVHPN2 ---
Progress Note - Dictate Date Seen: Sep 03, 2024 Has the PT tested + for MRSA If YES, has PT been informed?: No Medical Necessity Reason Pt with a Central, PICC or Fol: No Subjective Ms. Mattson is a 64 years old right-handed female with a history of hypertension, dyslipidemia, congestive heart failure, cardiomegaly, COPD, kidney stone, s/p tetralogy or Fallot repair, she was brought to the [facility] on 08/30/2024 with a chief company of seizure activity. I have seen and examined the patient, talked to her nurse, she was alert and oriented, no new complaints No seizure activity Urinalysis, 08/30/2024: WBC: 1, urine leukocyte esterase: Negative WBC/HB/PLT/MCV, 08/30/2024: 8.3/13.1/65/103.5 BUN/CR, 08/30/2024: 10/1.29 Vitamin B12, 08/2024: 816 Folic acid, 08/2024: 6.85 EEG, 09/02/2024: Normal Echocardiogram, 09/01/2024: Significantly reduced left ventricular systolic function. Valvular heart disease compatible with rheumatic disease. Questionable significant aortic/mitral/tricuspid disease. Consider ANA for further evaluation. ANA, 09/03/2024: 4. Right atrium: RA was enlarged. Pacing wire was seen in right sided chambers 5. Mitral valve: Thickened leaflet tips and leaflet movement was in favor of rheumatic mitral disease. At most moderate Mitral regurgitation was seen. Mean/Peak pressure gradient across mitral valve (obtained through limited transthoracic veiws) were 5/9 mmHg. Mild to moderate Mitral stenosis was seen. 6. Left atrial appendage: No evidence of thrombus. 7. Aortic valve: Aortic valve was trileaflet. It had thickened leaflet tips with restricted motion in favor of Rheumatic disease. Peak / Mean pressure gradient across Aortic Valve was 58/34 mmHg. Planinometry of Aortic valve revealed Aortic Valve Area of 1.1 cm in favor of moderate Aortic Stenosis. There was moderate Aortic Insufficiency. 8. Pulmonic valve: Mild to moderate pulmonic insufficiency was seen. No significant stenosis. 9. Tricuspid valve: Moderate tricuspid regurgitation was seen. 10. Interatrial septum: Negative color flow for right to left shunt was observed. Minimal cross of bubbles to right side questions possible presence of small PFO 11. Pericardium: No significant effusion. 12. Thoracic aorta: No significant plaquing. CT head, 08/30/2024: No acute intracranial abnormality CT chest, 08/31/2024:1. Right upper lobe infiltrate which may reflect pneumonia in the appropriate clinical setting. 2. Cardiomegaly. 3. Small bilateral pleural effusions and passive atelectasis in the lower lobes vital signs Vital Sign Date Time Temp Pulse Resp B/P (MAP) Pulse Ox O2 Delivery O2 Flow Rate FiO2 09/03/24 13:52 94 Room Air 0.0 09/03/24 13:52 21 09/03/24 13:00 97.6 93 16 164/77 (106) 97.6 Total Intake and Output 09/02/24 09/02/24 09/03/24 15:00 23:00 07:00 Intake Total 200 ml 300 ml Output Total 2000 ml 250 ml Balance 200 ml -2000 ml 50 ml medications Current Medications Medications Dose Ordered Sig/Leon Route Start Time Stop Time Status Last Admin Dose Admin Ipratropium [place] 0.5 mg Q6HPRN PRN NEB 08/31/24 02:30 09/02/24 18:38 0.5 MG Furosemide 40 mg DAILY IV 08/31/24 04:00 09/03/24 11:54 40 MG Pantoprazole Sodium 40 mg DAILY PO 08/31/24 10:00 09/03/24 11:57 40 MG Losartan Potassium 100 mg DAILY PO 08/31/24 10:00 09/03/24 11:51 100 MG Acetaminophen/ Hydrocodone Bitart 1 tab Q8HPRN PRN PO 08/31/24 05:45 09/01/24 21:40 1 TAB Lorazepam 1 mg Q5MINP PRN IV 08/31/24 07:15 Levetiracetam 750 mg BID PO 08/31/24 10:00 09/03/24 11:52 750 MG Apixaban 5 mg BID PO 08/31/24 10:00 Hold 09/01/24 11:29 5 MG Lorazepam 1 mg ONCE PRN IV 08/31/24 10:45 Levalbuterol HCl 0.625 mg Q6HPRN PRN NEB 09/02/24 17:30 09/02/24 18:38 0.625 MG objective General: the patient is well developed and nourished. No acute distress. MENTAL STATUS: Awake and alert. Oriented to person, place, time and general circumstances. Able to give personal history. SPEECH, LANGUAGE, HIGHER CORTICAL FUNCTION: no aphasia or dysathria. CRANIAL NERVES: Pupils are equal, round and reactive. EOMs full and conjugate. No nystagmus. Facial sensation intact in all three divisions bilaterally. Mandibular strength intact. Facial muscles symmetrical and strength intact. SENSATION: Sensation to touch and pinprick is normal. MOTOR: Normal tone in the upper and lower extremity. Normal muscle bulk. No fasciculations. No abnormal movements or posturing. Muscle strength of the major groups in the extremities is 5/5. REFLEXES: Deep tendon reflexes normal and symmetrical. No pathological reflexes. CEREBELLAR/COORDINATION: Finger to nose is normal bilaterally. GAIT/STATION: deferred. laboratory and microbiology Laboratory Tests 09/03/24 05:14 Test 09/03/24 05:14 Range/Units Serum Glucose 111 H 74-106 mg/dL Problem List Partial complex seizure Olfactory hallucination ?Partial simple seizure Macrocytosis Assessment/Plan Monitoring Supportive treatment Telemetry UDS MR brain scan Keppra 750mg bid Ativan for seizure breakthrough More recommendation per clinical course This medical document was created using an electronic medical record system with [employer] computerized dictation system. Although this document has been carefully reviewed, there may still be some phonetic and typographical errors. These areas are purely typographical due to imperfections of the software programs, and do not reflect any compromise in the patient's medical care. Prognosis poor Dietary Evaluation Review Comments: 1. Timely diet resumption back to Cardiac diet when medically able 2. Will follow PO vs. need for ONS pending oral intakes 3. Appreciate daily wt's to trend Expected Outcomes/Goals: Timely diet progression, adequate nutrition. Plan discussed with: Other MISAEL ROSARIO MD Sep 03, 2024 15:34
[2024-09-03] MEDS ORDERED: VANCOMYCIN PER PHARMACY 0 MG IV SCH (21:30)
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
[2024-09-04] VITALS (11 sets, daily range): BP systolic 111–157; BP diastolic 55–87; PULSE 75–94; RESP 15–18; TEMP 97.7–98.2; O2SAT 94–97
[2024-09-04] MEDS: VANCOMYCIN 1.5GM/300ML 300 ML IV ONE (01:54)
[2024-09-04] MEDS: ONDANSETRON HCL 4 MG/2 ML VIAL IV PRN (03:46)
[2024-09-04 05:49] LABS: Basophils # (auto) 0 10 ^3/uL (0-0.2); Eosinophils # (auto) 0.2 10 ^3/uL (0-0.8); Monocytes # (auto) 0.8 10 ^3/uL (0-1.3); Nucleated Red Blood Cells % 0.1 %; White Blood Cell 8.9 10^3/uL (4.4-10.8)
[2024-09-04 05:51] LABS: Basophils % (auto) 0.4 % (0.0-2.0); Eosinophils % (auto) 2.7 % (0.0-7.0); Hematocrit 43.4 % (36.0-46.0); Lymphocytes # (auto) 1.3 10 ^3/uL (0.4-5.4); Lymphocytes % (auto) 15.1 % (10.0-50.0); Mean Corpuscular Hgb Conc. 32.3 g/dL (32.0-36.0); Monocytes % (auto) 9.4 % (0.0-12.0); Neutrophils # (auto) 6.4 10 ^3/uL (1.6-8.6); Neutrophils % (auto) 72.4 % (37.0-80.0); Platelet Count (auto) 54 10^3/uL (140-450); Red Blood Cells 4.25 10^6/uL (4.0-5.20); Red Cell Distribution Width 13.2 % (11.8-14.3)
[2024-09-04 06:00] LABS: Albumin 3.8 g/dL (3.2-4.8); Alkaline Phosphatase 79 U/L (46-116); Anion Gap 8 (5-15); Aspartate Aminotransferase 16 U/L (13-40); BUN/Creatinine Ratio 9.2 (10.0-20.0); Blood Urea Nitrogen 10 mg/dL (9-23); Carbon Dioxide 22 mmol/L (20-31); Potassium 3.6 mmol/L (3.5-5.1); Sodium 139 mmol/L (136-145); Total Protein 6.4 g/dL (5.7-8.2)
[2024-09-04 06:05] LABS: Alanine Aminotransferase < 9 U/L (7-40); Chloride 109 mmol/L (98-107); Glucose 113 mg/dL (74-106)
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
[2024-09-04] MEDS: cefTRIAXone 1GM/50ML D5W 50 ML IV SCH (10:45)
--- NOTE | 2024-09-04 19:06 | DVHPN2 ---
Assessment/Plan Assessment/Plan A 64-year-old female with past medical history of CHF, COPD, CKD, hypertension, dyslipidemia, repaired tetralogy of Fallot, seizure disorder (newly diagnosed), subdural hematoma s/p evacuation in 2014, chronic pain syndrome, status post pacemaker (for bradycardia), and kidney stones, presented to the ED on 08/30/2024 after a witnessed seizure-like episode. According to the patient and witnesses, during lunch she became unresponsive with eye movements [id number], appeared confused and "zoned out" for 23 minutes but remained upright and was able to finish her meal. She has had three similar events this year. A similar episode occurred in 1968, but none again until 2024. She denies loss of cons ciousness, bowel/bladder incontinence, or postictal state. She also reports recent tingling and swelling in her lower extremities and altered smell since end of July. No history of trauma or family history of seizure disorder. seen today, NAEON, pending eeg physical exam aox4 perrla mmm no tongue lac clear breath sounds s1 s2 rrr systolic murmur abdomen soft nontender le edema labs ekg imaging reviewed assessment and plan #Possible breakthrough seizure #Possible Partial complex seizure #Near syncope #Olfactory hallucination ?Partial simple seizure convulsive syncope #Macrocytosis #Acute on chronic HFpEF #Coronary artery disease, left heart catheterization done in 2018 #History of moderate mitral regurgitation #Hypertension #Dyslipidemia #History of atrial flutter #History of infective endocarditis in 2023 treated at [facility] #S/p pacemaker due to symptomatic bradycardia #Possible NENA due to VMN #Thrombocytopenia Cardiac diet Continue Keppra 750 mg BID Lorazepam PRN for seizures Losartan 100 mg daily Apixaban 5 mg BID Breathing treatments PRN Pantoprazol 40 mg daily Furosemide 40 mg daily [place] PRN 09/02/2024: Echo TT: showed significantly reduced left ventricular systolic function. Valvular heart disease compatible with rheumatic disease. Questionable significant aortic/mitral/tricuspid disease, patient will be scheduled for PATT and left/right heart cath, also her urine looks cloudy UA and urine culture sent. patt moderate as, lhc clean presentation more like convulsive syncope pending eeg, neuro clearance Plan discussed with: Patient My Orders Orders - ROXANA VEGA MD Procedure Category Date Status Time Vancomycin Per PHA 09/03/24 In Process Pharmacy 21:30 Ceftriaxone 1gm/50ml PHA 09/04/24 In Process D5w (Rocephin) 09:00 Vancomycin 1gm/200ml PHA 09/05/24 In Process Pm 02:00 Complete Blood Count LAB 09/05/24 Verified 04:00 Creatinine LAB 09/05/24 Verified 04:00 Vancomycin,Trough LAB 09/07/24 Verified 01:00 Vancomycin Per JAMILA 09/04/24 In Process Pharmacy Protoc 10:07 Date of Service: Sep 04, 2024 Billing Provider: ROXANA VEGA MD Common Visit Codes: [id number] INP/OBS CARE(HIGH) ROXANA VEGA MD Sep 04, 2024 19:06
[2024-09-05] VITALS (9 sets, daily range): BP systolic 112–137; BP diastolic 43–54; PULSE 62–91; RESP 14–20; TEMP 83–98.5; O2SAT 95–96
[2024-09-05] MEDS: VANCOMYCIN 1GM/200ML PM 200 ML IV SCH (01:41)
[2024-09-05 07:30] LABS: Basophils # (auto) 0.1 10 ^3/uL (0-0.2); Basophils % (auto) 0.7 % (0.0-2.0); Eosinophils # (auto) 0.3 10 ^3/uL (0-0.8); Hematocrit 41.2 % (36.0-46.0); Hemoglobin 13.6 g/dL (12.2-16.2); Lymphocytes # (auto) 1.8 10 ^3/uL (0.4-5.4); Lymphocytes % (auto) 25.2 % (10.0-50.0); Mean Corpuscular Hemoglobin 33.7 pg (28.0-32.0); Mean Corpuscular Volume 102.2 fL (80.0-100.0); Monocytes # (auto) 0.9 10 ^3/uL (0-1.3); Monocytes % (auto) 12.1 % (0.0-12.0); Neutrophils # (auto) 4.2 10 ^3/uL (1.6-8.6); Nucleated Red Blood Cells % 0.1 %; Platelet Count (auto) 51 10^3/uL (140-450); Red Blood Cells 4.03 10^6/uL (4.0-5.20); Red Cell Distribution Width 13.4 % (11.8-14.3); White Blood Cell 7.2 10^3/uL (4.4-10.8)
--- NOTE | 2024-09-05 15:17 | DVHPN2 ---
Assessment/Plan Assessment/Plan A 64-year-old female with past medical history of CHF, COPD, CKD, hypertension, dyslipidemia, repaired tetralogy of Fallot, seizure disorder (newly diagnosed), subdural hematoma s/p evacuation in 2014, chronic pain syndrome, status post pacemaker (for bradycardia), and kidney stones, presented to the ED on 08/30/2024 after a witnessed seizure-like episode. According to the patient and witnesses, during lunch she became unresponsive with eye movements [id number], appeared confused and "zoned out" for 23 minutes but remained upright and was able to finish her meal. She has had three similar events this year. A similar episode occurred in 1968, but none again until 2024. She denies loss of cons ciousness, bowel/bladder incontinence, or postictal state. She also reports recent tingling and swelling in her lower extremities and altered smell since end of July. No history of trauma or family history of seizure disorder. seen today, JAM, pending eeg friday physical exam aox4 perrla mmm no tongue lac clear breath sounds s1 s2 rrr systolic murmur abdomen soft nontender le edema labs ekg imaging reviewed assessment and plan #Possible breakthrough seizure #Possible Partial complex seizure #Near syncope #Olfactory hallucination ?Partial simple seizure convulsive syncope #Macrocytosis #Acute on chronic HFpEF #Coronary artery disease, left heart catheterization done in 2018 #History of moderate mitral regurgitation #Hypertension #Dyslipidemia #History of atrial flutter #History of infective endocarditis in 2023 treated at [facility] #S/p pacemaker due to symptomatic bradycardia #Possible NENA due to VMN #Thrombocytopenia Cardiac diet Continue Keppra 750 mg BID Lorazepam PRN for seizures Losartan 100 mg daily Apixaban 5 mg BID Breathing treatments PRN Pantoprazol 40 mg daily Furosemide 40 mg daily [place] PRN 09/02/2024: Echo TT: showed significantly reduced left ventricular systolic function. Valvular heart disease compatible with rheumatic disease. Questionable significant aortic/mitral/tricuspid disease, patient will be scheduled for PATT a nd left/right heart cath, also her urine looks cloudy UA and urine culture sent. patt moderate as, lhc clean presentation more like convulsive syncope pending eeg, neuro clearance Plan discussed with: Patient My Orders Orders - ROXANA VEGA MD Procedure Category Date Status Time Complete Blood Count LAB 09/06/24 Verified 04:00 Creatinine LAB 4/14/25 Verified 04:00 Date of Service: Sep 05, 2024 Billing Provider: ROXANA VEGA MD Common Visit Codes: [id number] INP/OBS CARE(MOD) ROXANA VEGA MD Sep 05, 2024 15:17
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
[2024-09-06] VITALS (9 sets, daily range): BP systolic 111–143; BP diastolic 43–65; PULSE 73–90; RESP 14–20; TEMP 97.7–98.7; O2SAT 90–98
[2024-09-06 06:29] LABS: Basophils # (auto) 0.1 10 ^3/uL (0-0.2); Basophils % (auto) 0.7 % (0.0-2.0); Eosinophils # (auto) 0.3 10 ^3/uL (0-0.8); Eosinophils % (auto) 4.7 % (0.0-7.0); Hematocrit 40.8 % (36.0-46.0); Hemoglobin 13.3 g/dL (12.2-16.2); Lymphocytes # (auto) 1.8 10 ^3/uL (0.4-5.4); Lymphocytes % (auto) 25.5 % (10.0-50.0); Mean Corpuscular Hemoglobin 33.2 pg (28.0-32.0); Mean Corpuscular Hgb Conc. 32.5 g/dL (32.0-36.0); Monocytes # (auto) 0.9 10 ^3/uL (0-1.3); Monocytes % (auto) 12.5 % (0.0-12.0); Neutrophils # (auto) 4.1 10 ^3/uL (1.6-8.6); Neutrophils % (auto) 56.6 % (37.0-80.0); Nucleated Red Blood Cells % 0.1 %; Platelet Count (auto) 55 10^3/uL (140-450); Red Cell Distribution Width 13.1 % (11.8-14.3); White Blood Cell 7.2 10^3/uL (4.4-10.8)
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
[2024-09-06] MEDS ORDERED: LOSARTAN POTASSIUM 50 MG TAB PO SCH (16:45)
[2024-09-06] MEDS: APIXABAN 5 MG TAB PO SCH (17:18)
[2024-09-06] MEDS: ACETAMINOPHEN 325 MG TAB PO PRN (22:42)
[2024-09-07 01:00] VITALS: BP 120/54; PULSE 75; RESP 14; TEMP 98.1; O2SAT 14; O2SAT 94
[2024-09-07 05:00] VITALS: BP 126/59; PULSE 66; RESP 14; TEMP 98.1; O2SAT 96
[2024-09-07 06:06] LABS: Basophils # (auto) 0.1 10 ^3/uL (0-0.2); Eosinophils # (auto) 0.3 10 ^3/uL (0-0.8); Eosinophils % (auto) 4.5 % (0.0-7.0); Hemoglobin 13.3 g/dL (12.2-16.2); Lymphocytes # (auto) 1.9 10 ^3/uL (0.4-5.4); Monocytes # (auto) 0.9 10 ^3/uL (0-1.3); Neutrophils # (auto) 3.3 10 ^3/uL (1.6-8.6); Nucleated Red Blood Cells % 0.1 %; White Blood Cell 6.4 10^3/uL (4.4-10.8)
[2024-09-07 06:09] LABS: Hematocrit 40.9 % (36.0-46.0); Lymphocytes % (auto) 28.9 % (10.0-50.0); Mean Corpuscular Hemoglobin 33.1 pg (28.0-32.0); Mean Corpuscular Hgb Conc. 32.4 g/dL (32.0-36.0); Mean Corpuscular Volume 101.9 fL (80.0-100.0); Monocytes % (auto) 13.7 % (0.0-12.0); Neutrophils % (auto) 51.9 % (37.0-80.0); Platelet Count (auto) 64 10^3/uL (140-450); Red Blood Cells 4.01 10^6/uL (4.0-5.20); Red Cell Distribution Width 12.8 % (11.8-14.3)
[2024-09-07] MEDS ORDERED: KEP500T PO (07:03)
[2024-09-07] MEDS ORDERED: NITR-52 PO (07:03)
--- NOTE | 2024-09-07 07:03 | DVHDSRES ---
Discharge Summary Date of Admission Resident Creating Document: SANTA WHARTON RESIDENT Aug 31, 2024 at 02:04 Date of Discharge: Sep 07, 2024 Admitting Diagnosis #Possible breakthrough seizure Labs/Diagnostic Data: Laboratory Results Test 09/07/24 05:16 09/07/24 00:44 09/04/24 04:55 09/02/24 12:50 White Blood Count 6.4 10^3/uL (4.4-10.8) Red Blood Count 4.01 10^6/uL (4.0-5.20) Hemoglobin 13.3 g/dL (12.2-16.2) Hematocrit 40.9 % (36.0-46.0) Mean Corpuscular Volume 101.9 fL (80.0-100.0) Mean Corpuscular Hemoglobin 33.1 pg (28.0-32.0) Mean Corpuscular Hemoglobin Concent 32.4 g/dL (32.0-36.0) Red Cell Distribution Width 12.8 % (11.8-14.3) Platelet Count 64 10^3/uL (140-450) Mean Platelet Volume 10.0 fL (6.9-10.8) Neutrophils (%) (Auto) 51.9 % (37.0-80.0) Lymphocytes (%) (Auto) 28.9 % (10.0-50.0) Monocytes (%) (Auto) 13.7 % (0.0-12.0) Eosinophils (%) (Auto) 4.5 % (0.0-7.0) Basophils (%) (Auto) 1.0 % (0.0-2.0) Neutrophils # (Auto) 3.3 10 ^3/uL (1.6-8.6) Lymphocytes # (Auto) 1.9 10 ^3/uL (0.4-5.4) Monocytes # (Auto) 0.9 10 ^3/uL (0-1.3) Eosinophils # (Auto) 0.3 10 ^3/uL (0-0.8) Basophils # (Auto) 0.1 10 ^3/uL (0-0.2) Nucleated Red Blood Cells 0.1 % Creatinine 0.99 mg/dL (0.550-1.02) Glomerular Filtration Rate Calc 64 mL/min (>90) Vancomycin Level Trough 11.3 ug/mL (5-10) Sodium Level 139 mmol/L (136-145) Potassium Level 3.6 mmol/L (3.5-5.1) Chloride Level 109 mmol/L (98-107) Carbon Dioxide Level 22 mmol/L (20-31) Anion Gap 8 (5-15) Blood Urea Nitrogen 10 mg/dL (9-23) BUN/Creatinine Ratio 9.2 (10.0-20.0) Serum Glucose 113 mg/dL (74-106) Calcium Level 11.0 mg/dL (8.7-10.4) Total Bilirubin 1.0 mg/dL (0.2-1.0) Aspartate Amino Transferase (AST) 16 U/L (13-40) Alanine Aminotransferase (ALT) < 9 U/L (7-40) Alkaline Phosphatase 79 U/L (46-116) Total Protein 6.4 g/dL (5.7-8.2) Albumin 3.8 g/dL (3.2-4.8) Prothrombin Time 13.5 sec (9.3-11.8) Prothrombin Time INR 1.31 (0.9-1.15) Activated Partial Thromboplast Time 45.8 SEC (24.5-34.5) Test 09/02/24 06:00 08/31/24 02:48 08/31/24 02:28 08/30/24 16:01 Urine Color Brown (Yellow) Urine Clarity Ex.turbid (Clear) Urine pH 7.5 (5.0-9.0) Urine Specific Caret 1.018 (1.001-1.035) Urine Protein 1+ (Negative) Urine Ketones Negative (Negative) Urine Blood 3+ /uL (Negative) Urine Nitrite Negative (Negative) Urine Bilirubin Negative (Negative) Urine Urobilinogen Normal mg/dL (Negative) Urine Leukocyte Esterase 1+ /uL (Negative) Urine RBC 5997 /hpf (0 - 4) Urine WBC Clumps Present /hpf (None Seen) Urine Microscopic WBC 16 /HPF (0-5) Urine Squamous Epithelial Cells None seen /hpf (<5) Urine Amorphous Crystals Few /hpf (None Seen) Urine Bacteria None seen /hpf (None Seen) Urine Glucose Normal mg/dL (Normal) Urine Opiates Screen Neg (NEGATIVE) Urine Fentanyl Screen Neg (NEGATIVE) Urine Barbiturates Screen Neg (NEGATIVE) Urine Phencyclidine Screen Neg (NEGATIVE) Urine Amphetamines Screen Neg (NEGATIVE) Urine Benzodiazepines Screen Neg (NEGATIVE) Urine Cocaine Screen Neg (NEGATIVE) Urine Cannabinoids Screen Pos (NEGATIVE) Influenza Type A Antigen Negative (Negative) Influenza Type B Antigen Negative (Negative) SARS-CoV-2 Antigen (Rapid) Negative (NEGATIVE) D-Dimer, Quantitative 0.39 mg/L FEU (0.0-0.49) Lactic Acid Level 1.0 mmol/L (0.4-2.0) Creatine Kinase 18 U/L (34-145) B-Type Natriuretic Peptide 2583.45 pg/mL (0-100) Vitamin B12 Level 816 pg/mL (211-911) Folic Acid 6.85 ng/mL (>5.38) POC Glucose 157 mg/dl (70-106) Other Laboratory Tests 09/07/24 05:16 09/04/24 04:55 Brief Hx & Hospital Course: A 64-year-old female with a history of congestive heart failure (CHF), COPD, CKD, hypertension, dyslipidemia, repaired tetralogy of Fallot, valvular heart disease, seizure disorder, atrial flutter on Eliquis, chronic pain syndrome, and prior subdural hematoma s/p evacuation in 2014, was admitted after a witnessed episode of eye deviation, altered awareness, and unresponsiveness during lunch, concerning for seizure. Neurology was consulted who states continue current treatment; Head CT scan normal MRI was not feasible due to pacemaker incompatibility. She was started on Keppra 750 mg BID with good response. Telemetry and pacemaker interrogation revealed episodes of atrial fibrillation. Transthoracic and transesophageal echocardiograms revealed moderate mitral, aortic, and tricuspid regurgitation, consistent with rheumatic heart disease, and reduced ejection fraction (EF 4045%). Left and right heart catheterizations showed normal coronaries and elevated pressures consistent with heart failure. During her stay, she was also found to have a UTI positive for Klebsiella and Enterococcus, treated successfully with ceftriaxone and vancomycin. She remained hemodynamically stable, without further seizure-like events or signs of systemic infection. Eliquis was continued due to atrial arrhythmia. She was discharged in stable condition on Keppra, Eliquis, nitrofurantoin and her usual home medications. Follow-up with cardiology and neurology is essential for continued monitoring of her heart failure, valvular disease, and seizure disorder. aox4 perrla mmm no tongue lac clear breath sounds s1 s2 rrr systolic murmur abdomen soft nontender le edema Case discussed with Dr Vega Consults/Reason for consult cardiology due to tachycardiomyopathy neurology due to seizures Operations or Procedures Procedures performed: Left heart catheterization and bilateral coronary angiogram Moderate sedation Diagnosis: No angiographic for epicardial coronary artery disease (normal coronaries) LVEF of around 35% Nonischemic cardiomyopathy Peak to peak pressure gradient across his aortic valve was 24 mm Hg pointing toward moderate aortic stenosis (Echocardiographic/ANA planimetry of aortic valve had revealed aortic valve area of 1.1 cm: in favor of moderate aortic stenosis) Cardiac suggestions for management: Optimized medical therapy Lifestyle and risk factor modifications Guideline directed medical therapy for systolic heart failure Periodic surveillance for valvular heart disease progression Findings: LVEF: 35% LVEDP: 18 mm Hg Peak pressure gradient across the aortic valve was 24 mm Hg Left main: Left main was coming off the left sinus of Valsalva. There was no angiographic evidence of disease in Left Main. LAD: LAD was coming off the left main. It provided large D1 and D2. Oiswl-th-wweyql-sizes D3 was seen. LAD throughout its course and branches did not reveal angiographic evidence of disease. Ramus intermedius: Ramus intermedius was large sized vessel which came off of Left Main. There was no angiographic evidence of disease in the ramus intermedius LCX: LCX was coming off of Left Main. It was a moderate-sized vessel with no angiographic evidence of disease. RCA: RCA was coming off the right sinus of valsalva. It was the dominant vessel and provided RPDA. RCA throughout its course and branches did not reveal angiographic evidence of disease. Presentation: Patient originally presented with breakthrough seizure. She also complained of shortness of breath. Echocardiogram revealed multiple valvular disease. Findings were in favor of rheumatic valve disease. Did have transthoracic and transesophageal echocardiogram. As the patient was found to have newly decreased ejection fraction in echocardiogram, she was sent for cardiac catheterization for further evaluation. Procedure: After obtaining informed consent, the patient was brought to cath lab radiological technologist. She was prepped and draped in sterile fashion. Right femoral artery was used for access site. Under fluoroscopy guidance and use of a micro puncture, the right femoral artery was accessed. After angiographically proving a good access point, the micropuncture sheath was exchanged over the wire to a six Martiniquais femoral sheath. A six Martiniquais JL4 diagnostic catheter was used to perform left coronary angiography. A six Martiniquais JR4 diagnostic catheter was used to perform right coronary angiography. A six Martiniquais pigtail catheter was used to perform left heart catheterization (obtaining pressures and performed left ventriculography). It is of note that catheters crossed Aortic valve into LV easily. There was no indication for any transcatheter revascularization. There was no dissection/hematoma/perforation. Patient tolerated the procedure with no complication. Right femoral artery access site was managed by deploying an Angio-Seal device. PROCEDURE PERFORMED: Transesophageal echocardiogram, conscious sedation administration and supervision, more than 15 minutes. Intra cardiac bubble study. PREOPERATIVE DIAGNOSES: r/o Valvular heart disease. DESCRIPTION OF PROCEDURE: The patient signed informed consent understanding risks, benefits and alternatives of the procedure, he wished to proceed. The patient was given 15 mL of oral viscous lidocaine. She was placed in a left lateral decubitus position and conscious sedation was administered per cath lab radiological technologist protocol (2 mg of Versed and 50 mcg of Fentanyl). I administered a bite block into her mouth and a ANA probe into the mid esophagus without any difficulties or complications. Multiple planar images were obtained. Bubble study was also performed. At the completion of procedure, ANA probe was removed and there were no immediate complications. Vitals signs were stable throughout the procedure. FINDINGS: 1. Left ventricle: LVEF was 40 - 45%. Mild diffuse hypokinesis of left ventricle was seen. 2. Right ventricle: Normal RV size with normal systolic function. 3. Left atrium: LA enlarged 4. Right atrium: RA was enlarged. Pacing wire was seen in right sided chambers 5. Mitral valve: Thickened leaflet tips and leaflet movement was in favor of rheumatic mitral disease. At most moderate Mitral regurgitation was seen. Mean/Peak pressure gradient across mitral valve (obtained through limited transthoracic veiws) were 5/9 mmHg. Mild to moderate Mitral stenosis was seen. 6. Left atrial appendage: No evidence of thrombus. 7. Aortic valve: Aortic valve was trileaflet. It had thickened leaflet tips with restricted motion in favor of Rheumatic disease. Peak / Mean pressure gradient across Aortic Valve was 58/34 mmHg. Planinometry of Aortic valve revealed Aortic Valve Area of 1.1 cm in favor of moderate Aortic Stenosis. There was moderate Aortic Insufficiency. 8. Pulmonic valve: Mild to moderate pulmonic insufficiency was seen. No significant stenosis. 9. Tricuspid valve: Moderate tricuspid regurgitation was seen. 10. Interatrial septum: Negative color flow for right to left shunt was observed. Minimal cross of bubbles to right side questions possible presence of small PFO 11. Pericardium: No significant effusion. 12. Thoracic aorta: No significant plaquing. Rheumatic Valves with Moderate disease as above. LVEF of 40 - 45% Procedure: CT CHEST WITHOUT CONTRAST Reason for study/Clinical History: Right lower zone infiltrate Comparison Study: Chest radiograph performed on 08/31/2024. Exam Date: 08/31/2024 06:06 AM TECHNIQUE: Multidetector CT of the chest was performed from the lung apices to the upper abdomen without the use of intravenous contract. Axial, coronal and sagittal multiplanar reformats were performed. Radiation Dose Information: CT Dose: CTDI volume is 7.72 mGy. Dose-length product is 294.13 mGy*cm The dose indicators for CT are the volume Computed Tomography (CT) Dose Index (CTDIvol) and the Dose Length Product (DLP), and are measured in units of mGy and mGy-cm, respectively. These indicators are not patient dose, but values generated from the CT scanner acquisition factors. The report includes radiation exposure data for exposures received during this examination. FINDINGS: Lower neck: Normal thyroid. Lungs: Right upper lobe infiltrate noted. Right lower lobe passive atelectasis. Left lower lobe passive atelectasis. Central airways: Patent. Pleura: No pleural effusion or significant pneumothorax. Heart/Vascular Structures: Left chest wall pacemaker noted. Normal heart size. No pericardial effusion. Lymph Nodes: No adenopathy Musculoskeletal: No acute osseous abnormality. Status post median sternotomy. Soft tissues: Normal. Upper abdomen: Limited portions of the upper abdomen are unremarkable. Chest wall: There is fat containing left posterolateral wall hernia. IMPRESSION: 1. Right upper lobe infiltrate which may reflect pneumonia in the appropriate clinical setting. 2. Cardiomegaly. 3. Small bilateral pleural effusions and passive atelectasis in the lower lobes. EXAM: CT HEAD WITHOUT CONTRAST INDICATION: seizure TECHNIQUE: CT of the head without intravenous contrast. Radiation Dose : 1. Head: CT Dose: CTDI volume is 52.79 mGy. Dose-length product is 951.87 mGy*cm The dose indicators for CT are the volume Computed Tomography (CT) Dose Index (CTDIvol) and the Dose Length Product (DLP), and are measured in units of mGy and mGy-cm, respectively. These indicators are not patient dose, but values generated from the CT scanner acquisition factors. The report includes radiation exposure data for exposures received during this examination. COMPARISON: None FINDINGS: There is no evidence of acute intracranial hemorrhage, extra-axial collection, mass effect, midline shift, herniation or hydrocephalus. The ventricles, sulci and cisterns are age appropriate. The martinez-white differentiation is intact. Patchy periventricular and subcortical white matter hypoattenuation is nonspecific but may be related to small vessel ischemic disease. The visualized paranasal sinuses and mastoid air cells are clear. The surrounding soft tissues and osseous structures are unremarkable. IMPRESSION: 1. No acute intracranial abnormality. 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 Patient was counseled about treatment plan, medications, possible side effects, patientverbalized understanding. All questions were answered to the best of my ability. This discharge took greater then 30 minutes in planning, reviewing documentation, counseling the patient, and discussing with other team members." ASSESSMENT ASSESSMENT Assessment breakthrough seizure Date of Service: Sep 07, 2024 Billing Provider: ROXANA VEGA MD Common Visit Codes: 60806-VZU/OBS DISCH DAY >30min SANTA WHARTON RESIDENT Sep 07, 2024 07:03 ROXANA VEGA MD Sep 08, 2024 22:35
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
[2024-09-07 09:18] VITALS: BP 135/49; PULSE 71; RESP 17; TEMP 98.1; O2SAT 94
[2024-09-07 10:00] VITALS: O2SAT 96
[2024-09-07] MEDS: LOSARTAN POTASSIUM 50 MG TAB PO SCH (10:00)
[2024-09-07 11:02] VITALS: BP 139/68
[2024-09-07 13:00] VITALS: BP 125/59; PULSE 90; RESP 20; TEMP 97.6; O2SAT 95
[2024-09-08] MEDS ORDERED: VANCOMYCIN 1.25GM/250ML 250 ML IV SCH (02:00)
== END 2024-09-07 16:50 | disposition home or self-care (01) | DRG 53 ==
LOC: ER 15:35 → OVERFLOW 08-31 02:04 → EAST 08-31 18:05 → TELE-EAST 09-01 19:57 → EAST 09-05 19:12
PROVIDERS: ADMIT Student in an Organized Health Care Education/Training Program; ATTEND Student in an Organized Health Care Education/Training Program
PROC: 4A023N7 Measurement of Cardiac Sampling and Pressure, Left Heart, Percutaneous Approach (ICD-10-PCS; principal; 2024-09-03)
PROC: B211YZZ Fluoroscopy of Multiple Coronary Arteries using Other Contrast (ICD-10-PCS; 2024-09-03)
PROC: B215YZZ Fluoroscopy of Left Heart using Other Contrast (ICD-10-PCS; 2024-09-03)
PROC: B24BZZ4 Ultrasonography of Heart with Aorta, Transesophageal (ICD-10-PCS; 2024-09-03)
PROC: 4B02XSZ Measurement of Cardiac Pacemaker, External Approach (ICD-10-PCS; 2024-09-03)
DX: G40.209 Localization-related (focal) (partial) symptomatic epilepsy and epileptic syndromes with complex partial seizures, not intractable, without status epilepticus (principal); N17.0 Acute kidney failure with tubular necrosis; I50.23 Acute on chronic systolic (congestive) heart failure; D69.6 Thrombocytopenia, unspecified; I42.8 Other cardiomyopathies; I08.2 Rheumatic disorders of both aortic and tricuspid valves; I47.19 Other supraventricular tachycardia; I13.0 Hypertensive heart and chronic kidney disease with heart failure and stage 1 through stage 4 chronic kidney disease, or unspecified chronic kidney disease; I25.10 Atherosclerotic heart disease of native coronary artery without angina pectoris; E78.5 Hyperlipidemia, unspecified; J44.9 Chronic obstructive pulmonary disease, unspecified; F17.210 Nicotine dependence, cigarettes, uncomplicated; E11.22 Type 2 diabetes mellitus with diabetic chronic kidney disease; G89.4 Chronic pain syndrome; I08.3 Combined rheumatic disorders of mitral, aortic and tricuspid valves; D75.89 Other specified diseases of blood and blood-forming organs; I48.91 Unspecified atrial fibrillation; I48.92 Unspecified atrial flutter; J98.11 Atelectasis; N18.9 Chronic kidney disease, unspecified; R44.2 Other hallucinations; N39.0 Urinary tract infection, site not specified; B96.1 Klebsiella pneumoniae [K. pneumoniae] as the cause of diseases classified elsewhere; B95.2 Enterococcus as the cause of diseases classified elsewhere; I35.1 Nonrheumatic aortic (valve) insufficiency; Z79.01 Long term (current) use of anticoagulants; Z95.0 Presence of cardiac pacemaker; Q21.12 Patent foramen ovale; Z79.899 Other long term (current) drug therapy; Z80.41 Family history of malignant neoplasm of ovary; Z82.49 Family history of ischemic heart disease and other diseases of the circulatory system; Z83.2 Family history of diseases of the blood and blood-forming organs and certain disorders involving the immune mechanism; Z83.3 Family history of diabetes mellitus; Z87.442 Personal history of urinary calculi; Z90.710 Acquired absence of both cervix and uterus; Z88.1 Allergy status to other antibiotic agents; Z98.891 History of uterine scar from previous surgery; Z98.51 Tubal ligation status; Z87.74 Personal history of (corrected) congenital malformations of heart and circulatory system; Z88.5 Allergy status to narcotic agent
CPT/HCPCS: 36415; 70450; 71045; 71250; 80048; 80053; 80202; 80307; 81001; 82040; 82550; 82565; 82607; 82746; 82962; 83605; 83880; 85025; 85379; 85610; 85730; 87086; 87088; 87186; 87426; 87804; 92610; 93005; 93306; 93312; 93458; 94640; 95819; 96365; 97110; 97116; 97163; 97530; 99152; C1751; C1894; G0378; J2250; J2405; Q9967

== ENCOUNTER 2024-12-27 11:45 | Inpatient (IN) | payer MEDICAID ==
[~2024-12-27] VITALS: Ht 160 cm; Wt 55.5 kg
[~2024-12-27 11:45] MED LIST changes: -HYDR-4833 PO; +KEP500T PO; +NITR-52 PO; -PANT40TA2 PO; -TOPI100T68 PO; -TOPI200T43 PO
[2024-12-27] MEDS: HYDROcodone-ACET 7.5/325MG TAB PO ONE (15:00)
[2024-12-27 15:06] LABS: Hematocrit 41.2 % (36.0-46.0); Hemoglobin 13.7 g/dL (12.2-16.2); Mean Corpuscular Hemoglobin 33.2 pg (28.0-32.0); Mean Corpuscular Volume 99.5 fL (80.0-100.0); Nucleated Red Blood Cells % 0.1 %
[2024-12-27 15:18] LABS: Potassium 4.3 mmol/L (3.5-5.1); Sodium 144 mmol/L (136-145)
[2024-12-27 15:19] LABS: Anion Gap 8 (5-15); Carbon Dioxide 27 mmol/L (20-31)
[2024-12-27 15:23] LABS: Calcium 10.8 mg/dL (8.7-10.4); Chloride 109 mmol/L (98-107)
[2024-12-27 15:24] LABS: BUN/Creatinine Ratio 15.9 (10.0-20.0); Blood Urea Nitrogen 20 mg/dL (9-23); Glucose 110 mg/dL (74-106)
--- NOTE | 2024-12-27 15:43 | DVH ---
INDICATION: R/o fracture COMPARISON: None TECHNIQUE: CT of the right was performed without contrast. Volume transverse images were obtained and reconstructed in multiple planes using bone and soft tissue algorithms. CONTRAST: None Radiation Dose Information: CT Dose: CTDI volume is 7.75 mGy. Dose-length product is 247.8 mGy*cm FINDINGS: The alignment is normal. Narrowing of the medial compartment of the right knee. Joint effusion behind the patella with the ef fusion layering out 2 levels the material anteriorly has a mean Hounsfield units of 14.06 in the flui d density posteriorly is 40 Hounsfield units. There is no fracture, dislocation, or focal osseous lesions. The soft tissues are normal. IMPRESSION: 1. No fracture seen 2. Moderately large joint effusion. Effusion layers out into 2 layers. Neither layers suggests fatty tissue. 3. Narrowing of the medial compartment of the right knee. 4. Consider MRI for further evaluation. 5. All CT scans at this medical facility are performed using dose modulation techniques as appropriat e to a performed exam including the following: Automated exposure control was utilized; adjustment of the MA and/or KV according to patient size; and use of iterative reconstruction technique.
--- NOTE | 2024-12-27 16:00 | ED.PDOC ---
Musculoskeletal HPI Comments 64-year-old female with a history of a right torn ACL in childhood that presents with a chief complaint of right knee pain S/P mechanical fall that occurred this morning after she tripped from the 6th step walking down a set of stairs. Onset was sudden and patient has been unable to ambulate or bear weight on the affected extremity since the fall. Pain is currently rated moderate to severe in his aggravated when ambulating or any movement. Denies skin color changes around the knee Denies masses around the knee Denies popping/locking/giving out of the knee Denies fever chills night sweats nausea vomiting Denies previous surgeries to the knee nor significant injury Chief Complaint: Lower Extremity Time Seen by MD: 14:30 Primary Care Provider: unknown Reviewed Notes: Nurses Notes, Medications, Allergies Allergies: Coded Allergies: Tetracycline (Verified Allergy, Intermediate, 03/09/14) Codeine (Verified Allergy, Unknown, Itchiness, 01/05/19) Erythromycin (Verified Allergy, Unknown, 12/16/16) Home Meds Active Scripts Spironolactone (Aldactone) 25 Mg Tab, 25 MG PO DAILY for 30 Days, #30 TAB Prov:TRISTAN RUBIO RESIDENT 12/31/24 Docusate Sodium (Docusate Sodium) 100 Mg Cap, 100 MG PO BID for 30 Days, #60 CAP Prov:TRISTAN RUBIO RESIDENT 12/31/24 Empagliflozin (Jardiance) 10 Mg Tab, 10 MG PO DAILY for 30 Days, #30 TAB Prov:TRISTAN RUBIO RESIDENT 12/31/24 Levetiracetam (KEPPRA TABLET) 500 Mg Tb, 750 MG PO BID for 30 Days, #90 TAB Prov:SANTA WHARTON RESIDENT 09/07/24 Reported Medications Topiramate (Topiramate) 200 Mg Tab, 1 TAB PO BID 12/28/24 Pantoprazole Sodium Sesquihydr (Pantoprazole Sodium) 40 Mg Tab, 1 TAB PO 12/28/24 Hydrocortisone Base (Hydrocortisone) 2.5 % Cre, 1 APPLIC TOP BID PRN PRN for HEMMORROID DISCOMFORT for 30 Days, #30 08/31/24 Naloxone HCl (Naloxone Hydrochloride) 4 Mg/0.1 Ml Spr, 1 SPRAY VEGA UD for 30 Days, #2 08/31/24 Metoclopramide HCl (Metoclopramide Hydrochlor) 10 Mg Tab, 1 TAB PO BID for 30 Days, #60 08/31/24 Apixaban Base (ELIQUIS) 5 Mg Tab, 1 TAB PO BID for 30 Days, #60 08/31/24 Ferrous Sulfate (Ferosul) 325 Mg Tab, 1 TAB PO BID for 30 Days, #60 08/31/24 Escitalopram Oxalate (ESCITALOPRAM OXALATE) 20 Mg Tab, 1 TAB PO DAILY for 30 Days, #30 08/31/24 Trazodone Hcl (Trazodone Hcl) 100 Mg Tab, 1 TAB PO DAILY for 30 Days, #30 08/31/24 Lansoprazole (Lansoprazole Dr) 30 Mg Cap, 1 CAP PO DAILY for 30 Days, #30 08/31/24 Furosemide (Furosemide) 40 Mg Tab, 1 TAB PO DAILY for 30 Days, #30 08/31/24 Docusate Sodium (Docusate Sodium) 100 Mg Cap, 1 CAP PO TID for 30 Days, #90 08/31/24 Potassium Chloride (Potassium Chloride ER) 10 Meq Tab, 1 TAB PO DAILY for 30 Days, #30 08/31/24 Hydrocodone-Acetaminophen (Hydrocodone/Acetaminophen 7.5-325 mg) 1 Tab Tab, 1 TAB PO BID for 30 Days, #60 08/31/24 Lidocaine (Ztlido) 1.8 % Pad, 1 PATCH TOP DAILY for 30 Days, #30 08/31/24 Cyclobenzaprine HCl (Cyclobenzaprine Hydrochlo) 10 Mg Tab, 1 TAB PO DAILY for 30 Days, #30 08/31/24 Fluoxetine HCl (Fluoxetine HCl) 20 Mg Cap, 1 CAP PO DAILY for 30 Days, #30 08/31/24 Carvedilol (Carvedilol) 6.25 Mg Tab, 1 TAB PO BID for 30 Days, #60 01/05/19 Losartan Potassium (Losartan Potassium) 100 Mg Tab, 1 TAB PO DAILY for 30 Days, #30 01/05/19 Simvastatin (Simvastatin) 20 Mg Tab, 1 TAB PO DAILY for 30 Days, #30 01/05/19 Magnesium Oxide (Magnesium Oxide) 400 Mg Cap, 1 CAP PO DAILY for 30 Days, #30 01/05/19 Discontinued Scripts Nitrofurantoin (Nitrofurantoin) 100 Mg Cap, 1 CAP PO BID for 10 Days, #10 CAP Prov:SANTA WHARTON RESIDENT 09/07/24 Information Source: Patient Mode of Arrival: Wheelchair Location: Right Extremity Location: Knee Timing: Hours Prehospital treatment: None Severity: Moderate Able to Move Extremity: No Bear Weight: Limited Pain: Moderate Hand Dominance: Right Mechanism: Other (fall) Circumstances: Fall Onset of Symptoms: After Trauma Symptoms: Swelling, Pain Associated signs and symptoms: Knee pain Past Medical History Past Medical History (Other): ACL the torn during her childhood Surgical History: CABG FINANCIAL ACCOUNTANT History: No Pertinent FINANCIAL ACCOUNTANT History Family History Family History: Reviewed,noncontributory to illness, Unknown Social History Smoker: Non-Smoker Alcohol: Denies ETOH Use Drugs: Denies Drug Use Lives In: Home Constitutional: denies: chills, diaphoresis, fatigue, fever, malaise, sweats, weakness, others EENTM: denies: blurred vision, double vision, ear bleeding, ear discharge, ear drainage, ear pain, ear ringing, eye pain, eye redness, hearing loss, mouth pain, mouth swelling, nasal discharge, nose bleeding, nose congestion, nose pain, photophobia, tearing, throat pain, throat swelling, voice changes, others Respiratory: denies: cough, hemoptysis, orthopnea, SOB at rest, shortness of breath, SOB with excertion, stridor, wheezing, others Cardiovascular: denies: chest pain, dizzy spells, diaphoresis, Dyspnea on exertion, edema, irregular heart beat, left arm pain, lightheadedness, palpitations, PND, syncope, others Gastrointestinal: denies: abdomen distended, abdominal pain, blood streaked bowels, constipated, diarrhea, dysphagia, difficulty swallowing, hematemesis, melena, nausea, poor appetite, poor fluid intake, rectal bleeding, rectal pain, vomiting, others Genitourinary: denies: abnormal vagina bleeding, burning, dyspareunia, dysuria, flank pain, frequency, hematuria, incontinence, pain, , vagina discharge, urgency, others Neurological: denies: dizziness, fainting, headache, left sided numbness, left sided weakness, numbness, paresthesia, pre-existing deficit, right sided numbne ss, right sided weakness, seizure, speech problems, tingling, tremors, weakness, others Musculoskeletal: reports: others (Knee pain); denies: back pain, gout, joint pain, joint swelling, muscle pain, muscle stiffness, neck pain Integumetry: denies: bruises, change in color, change in hair/nails, dryness, laceration, lesions, lumps, rash, wounds, others Allergic/Immunocompromised: denies: Difficulty Healing, Frequent Infections, Hives, Itching, others Hematologic/Lymphatic: denies: anemia, blood clots, easy bleeding, easy brui sing, swollen glands, others Endocrine: denies: excessive hunger, excessive sweating, excessive thirst, ex cessive urination, flushing, intolerance to cold, intolerance to heat, unexplained weight gain, unexplained weight loss, others Psychiatric: denies: anxiety, bipolar disorder, depression, hopeless, panic disorder, schizophrenia, sleepless, suicidal, others All Other Systems: Reviewed and Negative Physical Exam General Appearance: No Apparent Distress, Normal HEENT: Normal ENT Inspection, Pharynx Normal, TMs Normal Neck: Full Range of Motion, Non-Tender, Normal, Normal Inspection Respiratory: Chest Non-Tender, Lungs Clear, No Accessory Muscle Use, No Respiratory Distress, Normal Breath Sounds Cardiovascular: No Edema, No JVD, No Murmur, No Gallop, Normal Peripheral Pulses, Regular Rate/Rhythm Breast Exam: Deferred Gastrointestinal: No Organomegaly, Non Tender, No Pulsatile Mass, Normal Bowel Sounds, Soft Genitalia: Deferred Pelvic: Deferred Rectal: Deferred Extremities: No calf tenderness, Normal capillary refill, Normal inspection, Normal range of motion, Non-tender, No pedal edema Musculoskeletal : Location: Right Extremity Location: Knee (Noticeable knee effusion. No ecchymosis no open wounds. Unable to bend the knee due to pain) Apperance: Normal Neurologic: Alert, certified nutritionist II-XII nml as Tested, No Motor Deficits, Normal Affect, Normal Mood, No Sensory Deficits Cerebellar Function: Normal Reflexes: Normal Skin: Dry, Normal Color, Warm Lymphatic: No Adenopathy Was a procedure done? Was a procedure done?: No Differential Diagnosis EXT Differential Diagnosis: Fracture, Sprain, Dislocation X-Ray, Labs, Meds, VS Vital Signs Date Time Temp Pulse Resp B/P (MAP) Pulse Ox O2 Delivery O2 Flow Rate FiO2 12/27/24 20:16 98.7 65 16 171/61 (97) 96 98.7 12/27/24 15:59 69 18 140/40 (73) 97 12/27/24 15:03 64 16 97 Room Air 12/27/24 15:03 97.8 64 16 153/57 (89) 97 97.8 12/27/24 11:46 97.7 60 16 162/45 95 97.7 Lab Test 12/27/24 16:30 12/27/24 14:49 Range/Units Urine Color Yellow Yellow Urine Clarity Clear Clear Urine pH 5.5 5.0-9.0 Urine Specific [place] 1.032 1.001-1.035 Urine Protein 1+ H Negative Urine Ketones 1+ H Negative Urine Blood Negative Negative /uL Urine Nitrite Negative Negative Urine Bilirubin Negative Negative Urine Urobilinogen Normal Negative mg/dL Urine Leukocyte Esterase Negative Negative /uL Urine RBC 1 0 - 4 /hpf Urine Microscopic WBC 1 0-5 /HPF Urine Squamous Epithelial Cells Few <5 /hpf Urine Bacteria Few H None Seen /hpf Urine Mucus Few None Seen Urine Glucose Normal Normal mg/dL White Blood Count 13.2 H 4.4-10.8 10^3/uL Red Blood Count 4.14 4.0-5.20 10^6/uL Hemoglobin 13.7 12.2-16.2 g/dL Hematocrit 41.2 36.0-46.0 % Mean Corpuscular Volume 99.5 80.0-100.0 fL Mean Corpuscular Hemoglobin 33.2 H 28.0-32.0 pg Mean Corpuscular Hemoglobin Concent 33.4 32.0-36.0 g/dL Red Cell Distribution Width 12.3 11.8-14.3 % Platelet Count 98 L 140-450 10^3/uL Mean Platelet Volume 9.2 6.9-10.8 fL Neutrophils (%) (Auto) 82.2 H 37.0-80.0 % Lymphocytes (%) (Auto) 11.1 10.0-50.0 % Monocytes (%) (Auto) 6.1 0.0-12.0 % Eosinophils (%) (Auto) 0.1 0.0-7.0 % Basophils (%) (Auto) 0.5 0.0-2.0 % Neutrophils # (Auto) 10.8 H 1.6-8.6 10 ^3/uL Lymphocytes # (Auto) 1.5 0.4-5.4 10 ^3/uL Monocytes # (Auto) 0.8 0-1.3 10 ^3/uL Eosinophils # (Auto) 0 0-0.8 10 ^3/uL Basophils # (Auto) 0.1 0-0.2 10 ^3/uL Nucleated Red Blood Cells 0.1 % Sodium Level 144 136-145 mmol/L Potassium Level 4.3 3.5-5.1 mmol/L Chloride Level 109 H 98-107 mmol/L Carbon Dioxide Level 27 20-31 mmol/L Anion Gap 8 5-15 Blood Urea Nitrogen 20 9-23 mg/dL Creatinine 1.26 H 0.550-1.02 mg/dL Glomerular Filtration Rate Calc 48 >90 mL/min BUN/Creatinine Ratio 15.9 10.0-20.0 Serum Glucose 110 H 74-106 mg/dL Calcium Level 10.8 H 8.7-10.4 mg/dL PATIENT: YOJANA LAUREN SACCT: [id number]: [id number] : 1960 LOC: ER ROOM / BED: / AGE / SEX: 64 / F ADM STATUS: REG ER SERVICE 1428 ORDERING PHYSICIAN: EKATERINA REYES PERSONAL PROPERTY ASSESSOR PROCEDURE(s): RKNCT - CT R KNEE WO CONTRAST REASON: R/o fracture ORDER NUMBER(s): [id number], ACCESSION NUMBER(s): [id number] INDICATION: R/o fracture COMPARISON: None TECHNIQUE: CT of the right was performed without contrast. Volume transverse images were obtained and reconstructed in multiple planes using bone and soft tissue algorithms. CONTRAST: None Radiation Dose Information: CT Dose: CTDI volume is 7.75 mGy. Dose-length product is 247.8 mGy*cm FINDINGS: The alignment is normal. Narrowing of the medial compartment of the right knee. Joint effusion behind the patella with the effusion layering out 2 levels the material anteriorly has a mean Hounsfield units of 14.06 in the fluid density posteriorly is 40 Hounsfield units. There is no fracture, dislocation, or focal osseous lesions. The soft tissues are normal. PATIENT: YOJANA LAUREN ACCT: [id number] UNIT: [id number] : 1960 LOC: ER ROOM / BED: / AGE / SEX: 64 / F ADM STATUS: REG ER SERVICE 1428 ORDERING PHYSICIAN: EKATERINA REYES PERSONAL PROPERTY ASSESSOR PROCEDURE(s): RKNCT - CT R KNEE WO CONTRAST REASON: R/o fracture ORDER NUMBER(s): [id number], ACCESSION NUMBER(s): [id number] INDICATION: R/o fracture COMPARISON: None TECHNIQUE: CT of the right was performed without contrast. Volume transverse images were obtained and reconstructed in multiple planes using bone and soft tissue algorithms. CONTRAST: None Radiation Dose Information: CT Dose: CTDI volume is 7.75 mGy. Dose-length produ ct is 247.8 mGy*cm FINDINGS: The alignment is normal. Narrowing of the medial compartment of the right knee. Joint effusion behind the patella with the effusion layering out 2 levels the material anteriorly has a mean Hounsfield units of 14.06 in the fluid density posteriorly is 40 Hounsfield units. There is no fracture, dislocation, or focal osseous lesions. The soft tissues are normal. IMPRESSION: 1. No fracture seen 2. Moderately large joint effusion. Effusion layers out into 2 layers. Neither layers suggests fatty tissue. 3. Narrowing of the medial compartment of the right knee. 4. Consider MRI for further evaluation. 5. All CT scans at this medical facility are performed using dose modulation techniques as appropriate to a performed exam including the following: Automated exposure control was utilized; adjustment of the MA and/or KV according to patient size; and use of iterative reconstruction technique. ATED BY: ARIES COLON Jr., DO DICTATED DATE/TIME: 12/27/24 154 SIGNED BY: ARIES COLON Jr., SIGNED DATE/TIME: 12/27/24 1541 CC: PATIENT: YOJANA LAUREN ACCT: [id number] UNIT: [id number] : 1960 LOC: ER ROOM / BED: / AGE / SEX: 64 / F ADM STATUS: REG ER SERVICE 1428 ORDERING PHYSICIAN: EKATERINA REYES NP PROCEDURE(s): RKNCT - CT R KNEE WO CONTRAST REASON: R/o fracture ORDER NUMBER(s): [id number], ACCESSION NUMBER(s): [id number] INDICATION: R/o fracture COMPARISON: None TECHNIQUE: CT of the right was performed without contrast. Volume transverse images were obtained and reconstructed in multiple planes using bone and soft tissue algorithms. CONTRAST: None Radiation Dose Information: CT Dose: CTDI volume is 7.75 mGy. Dose-length product is 247.8 mGy*cm FINDINGS: The alignment is normal. Narrowing of the medial compartment of the right knee. Joint effusion behind the patella with the effusion layering out 2 levels the material anteriorly has a mean Hounsfield units of 14.06 in the fluid density posteriorly is 40 Hounsfield units. There is no fracture, dislocation, or focal osseous lesions. The soft tissues are normal. IMPRESSION: 1. No fracture seen 2. Moderately large joint effusion. Effusion layers out into 2 layers. Neither layers suggests fatty tissue. 3. Narrowing of the medial compartment of the right knee. 4. Consider MRI for further evaluation. 5. All CT scans at this medical facility are performed using dose modulation techniques as appropriate to a performed exam including the following: Automated exposure control was utilized; adjustment of the MA and/or KV according to patient size; and use of iterative reconstruction technique. ATED BY: ARIES COLON Jr., DO DICTATED DATE/TIME: 12/27/24 154 SIGNED BY: ARIES COLON Jr., SIGNED DATE/TIME: 12/27/24 154 CC: PATIENT: YOJANA LAUREN ACCT: [id number] UNIT: [id number] : 1960 LOC: ER ROOM / BED: / AGE / SEX: 64 / F ADM STATUS: REG ER SERVICE 1428 ORDERING PHYSICIAN: EKATERINA REYES NP PROCEDURE(s): RKNCT - CT R KNEE WO CONTRAST REASON: R/o fracture ORDER NUMBER(s): [id number], ACCESSION NUMBER(s): [id number] INDICATION: R/o fracture COMPARISON: None TECHNIQUE: CT of the right was performed without contrast. Volume transverse images were obtained and reconstructed in multiple planes using bone and soft tissue algorithms. CONTRAST: None Radiation Dose Information: CT Dose: CTDI volume is 7.75 mGy. Dose-length product is 247.8 mGy*cm FINDINGS: The alignment is normal. Narrowing of the medial compartment of the right knee. Joint effusion behind the patella with the effusion layering out 2 levels the material anteriorly has a mean Hounsfield units of 14.06 in the fluid density posteriorly is 40 Hounsfield units. There is no fracture, dislocation, or focal osseous lesions. The soft tissues are normal. IMPRESSION: 1. No fracture seen 2. Moderately large joint effusion. Effusion layers out into 2 layers. Neither layers suggests fatty tissue. 3. Narrowing of the medial compartment of the right knee. 4. Consider MRI for further evaluation. 5. All CT scans at this medical facility are performed using dose modulation techniques as appropriate to a performed exam including the following: Automated exposure control was utilized; adjustment of the MA and/or KV according to patient size; and use of iterative reconstruction technique. ATED BY: ARIES COLON Jr., DO DICTATED DATE/TIME: 12/27/241540 SIGNED BY: ARIES COLON Jr., SIGNED DATE/TIME: 12/27/241540 CC: PATIENT: YOJANA LAUREN ACCT: [id number] UNIT: [id number] : 1960 LOC: ER ROOM / BED: / AGE / SEX: 64 / F ADM STATUS: REG ER SERVICE 1428 ORDERING PHYSICIAN: EKATERINA REYES NP PROCEDURE(s): RKNCT - CT R KNEE WO CONTRAST REASON: R/o fracture ORDER NUMBER(s): [id number], ACCESSION NUMBER(s): [id number] INDICATION: R/o fracture COMPARISON: None TECHNIQUE: CT of the right was performed without contrast. Volume transverse images were obtained and reconstructed in multiple planes using bone and soft tissue algorithms. CONTRAST: None Radiation Dose Information: CT Dose: CTDI volume is 7.75 mGy. Dose-length product is 247.8 mGy*cm FINDINGS: The alignment is normal. Narrowing of the medial compartment of the right knee. Joint effusion behind the patella with the effusion layering out 2 levels the material anteriorly has a mean Hounsfield units of 14.06 in the fluid density posteriorly is 40 Hounsfield units. There is no fracture, dislocation, or focal osseous lesions. The soft tissues are normal. IMPRESSION: 1. No fracture seen 2. Moderately large joint effusion. Effusion layers out into 2 layers. Neither layers suggests fatty tissue. 3. Narrowing of the medial compartment of the right knee. 4. Consider MRI for further evaluation. 5. All CT scans at this medical facility are performed using dose modulation techniques as appropriate to a performed exam including the following: Automated exposure control was utilized; adjustment of the MA and/or KV according to patient size; and use of iterative reconstruction technique. ATED BY: ARIES COLON Jr., DO DICTATED DATE/TIME: 12/27/24 154 SIGNED BY: ARIES COLON Jr., SIGNED DATE/TIME: 12/27/24 154 CC: PATIENT: YOJANA LAUREN ACCT: [id number] UNIT: [id number] : 1960 LOC: ER ROOM / BED: / AGE / SEX: 64 / F ADM STATUS: REG ER SERVICE 1428 ORDERING PHYSICIAN: EKATERINA REYES NP PROCEDURE(s): RKNCT - CT R KNEE WO CONTRAST REASON: R/o fracture ORDER NUMBER(s): [id number], ACCESSION NUMBER(s): [id number] INDICATION: R/o fracture COMPARISON: None TECHNIQUE: CT of the right was performed without contrast. Volume transverse images were obtained and reconstructed in multiple planes using bone and soft tissue algorithms. CONTRAST: None Radiation Dose Information: CT Dose: CTDI volume is 7.75 mGy. Dose-length product is 247.8 mGy*cm FINDINGS: The alignment is normal. Narrowing of the medial compartment of the right knee. Joint effusion behind the patella with the effusion layering out 2 levels the material anteriorly has a mean Hounsfield units of 14.06 in the fluid density posteriorly is 40 Ho unsfield units. There is no fracture, dislocation, or focal osseous lesions. The soft tissues are normal. IMPRESSION: 1. No fracture seen 2. Moderately large joint effusion. Effusion layers out into 2 layers. Neither layers suggests fatty tissue. 3. Narrowing of the medial compartment of the right knee. 4. Consider MRI for further evaluation. 5. All CT scans at this medical facility are performed using dose modulation techniques as appropriate to a performed exam including the following: Automated exposure control was utilized; adjustment of the MA and/or KV according to patient size; and use of iterative reconstruction technique. ATED BY: ARIES COLON Jr., DO DICTATED DATE/TIME: 12/27/241540 SIGNED BY: ARIES COLON Jr., SIGNED DATE/TIME: 12/27/241540 CC: PATIENT: YOJANA LAUREN ACCT: [id number] UNIT: [id number] : 1960 LOC: ER ROOM / BED: / AGE / SEX: 64 / F ADM STATUS: REG ER SERVICE 1428 ORDERING PHYSICIAN: EKATERINA REYES NP PROCEDURE(s): RKNCT - CT R KNEE WO CONTRAST REASON: R/o fracture ORDER NUMBER(s): [id number], ACCESSION NUMBER(s): [id number] INDICATION: R/o fracture COMPARISON: None TECHNIQUE: CT of the right was performed without contrast. Volume transverse images were obtained and reconstructed in multiple planes using bone and soft ti ssue algorithms. CONTRAST: None Radiation Dose Information: CT Dose: CTDI volume is 7.75 mGy. Dose-length product is 247.8 mGy*cm FINDINGS: The alignment is normal. Narrowing of the medial compartment of the right knee. Joint effusion behind the patella with the effusion layering out 2 levels the material anteriorly has a mean Hounsfield units of 14.06 in the fluid density posteriorly is 40 Hounsfield units. There is no fracture, dislocation, or focal osseous lesions. The soft tissues are normal. IMPRESSION: 1. No fracture seen 2. Moderately large joint effusion. Effusion layers out into 2 layers. Neither layers suggests fatty tissue. 3. Narrowing of the medial compartment of the right knee. 4. Consider MRI for further evaluation. 5. All CT scans at this medical facility are performed using dose modulation techniques as appropriate to a performed exam including the following: Automated exposure control was utilized; adjustment of the MA and/or KV according to patient size; and use of iterative reconstruction technique. ATED BY: ARIES COLON Jr., DO DICTATED DATE/TIME: 12/27/241540 SIGNED BY: ARIES COLON Jr., SIGNED DATE/TIME: 12/27/241540 CC: ATED BY: ARIES COLON Jr., DO DICTATED DATE/TIME: 12/27/241540 SIGNED BY: ARIES COLON Jr., SIGNED DATE/TIME: 12/27/241540 CC: X-Ray, Labs, Meds, VS Comment 64-year-old female with a history of a right torn ACL in childhood that presents with a chief complaint of right knee pain S/P mechanical fall that occurred this morning after she tripped from the 6th step walking down a set of stairs. Patient arrives alert and oriented, ABC's intact, afebrile, vital signs stable, saturating well in room air Peripheral IV insertion+ labs were ordered. CBC was ordered to exclude anemia, blood loss, or infection. Urinalysis was ordered to rule out UTI or hematuria. Diagnostic imaging ordered by me and results interpreted by radiology : CT scan to the right knee Labs in the ED showed (pertinent+ and then pertinent-) On reevaluation, patient had symptomatic improvement. Patient is stable for discharge at this time. External notes reviewed. Test results and diagnostic imaging interpreted. All diagnostic findings, discharge care, education and instructions provided Follow-up with PCP in 2 to 3 days Patient verbalized understanding and agreed to treatment plan Vital signs stable, afebrile, no acute distress noted Patient ambulatory with strong steady gait Advised to return precautions for any new or worsening symptoms, return to ER immediately for re-evaluation Patient is aware that the purpose of this visit was for an acute medical emergency requiring emergent stabilization. Chronic conditions, including malignancies have not been ruled out. Patient is instructed to follow up with PCP as directed and discharge instructions for continued care and workup. If unable to arrange follow-up, patient is to return to the emergency department for reassessment. Patient (parent or legal guardian if applicable) was given verbal and written discharge instructions and acknowledges understanding. Additional MDM Review of External, Non-ED records: External records reviewed. Discussion with independent historian (EMS, family) history obtained from the patient/parents (if applicable) at bedside Chronic conditions affecting care: None Social determinants of health affecting care: None Consideration of admission (observation or admission): I considered escalation of care to admission for this patient, however given the reassuring workup, the patient is safe for outpatient management. Discussion with the Radiology: No Tests considered but not performed: Prescription medication considered but not given: 12 lead EKG interpretation: 1. No fracture seen 2. Moderately large joint effusion. Effusion layers out into 2 layers. Neither layers suggests fatty tissue. 3. Narrowing of the medial compartment of the right knee. 4. Consider MRI for further evaluation. 5. All CT scans at this medical facility are performed using dose modulation techniques as appropriate to a performed exam including the following: Automated exposure control was utilized; adjustment of the MA and/or KV according to patient size; and use of iterative reconstruction technique. Patient will be admitted for expert consultation Time of 1ST Reevaluation: 15:00 Reevaluation 1ST: Unchanged Patient Education/Counseling: Diagnosis, Treatment, Prognosis Family Education/Counseling: No Family Present Departure 1 Departure Time of Disposition: 15:59 Impression: Primary Impression: Intractable pain Additional Impression: Knee effusion, right Disposition: 09 ADMITTED INPATIENT Condition: Serious e-Prescriptions Spironolactone (Aldactone) 25 Mg Tab 25 MG PO DAILY for 30 Days, #30 TAB Prov: TRISTAN RUBIO 12/31/24 Docusate Sodium (Docusate Sodium) 100 Mg Cap 100 MG PO BID for 30 Days, #60 CAP Prov: TRISTAN RUBIO RESIDENT 12/31/24 Empagliflozin (Jardiance) 10 Mg Tab 10 MG PO DAILY for 30 Days, #30 TAB Prov: TRISTAN RUBIO RESIDENT 12/31/24 Critical Care Note Critical Care Time?: No Stability Stability form required: No Heart Score Heart Score: Heart Score Response (Comments) Value History N/A 0 EKG N/A 0 Age N/A 0 Risk Factors N/A 0 Troponin N/A 0 Total 0 I personally scribed for EKATERINA REYES NP ([email or web address]) on 12/27/24 at 16:09. Electronically submitted by Bashir Florez ([email or web address]). EKATERINA REYES NP Dec 27, 2024 15:59
[2024-12-27 17:25] LABS: Urine Protein, UAD 1+ (Negative)
[2024-12-27] MEDS ORDERED: ONDANSETRON HCL 4 MG/2 ML VIAL IV PRN (21:00)
[2024-12-27] MEDS: LOSARTAN POTASSIUM 50 MG TAB PO ONE (21:15)
[2024-12-27] MEDS: SODIUM CHLORIDE 0.9% 1,000 ML IV ONE (21:15)
--- NOTE | 2024-12-27 21:39 | DVHHPRES ---
History of Present Illness Resident Creating Document: [place] RESIDENT History of Present Illness 64-year-old female with previous history of CABG 2 times, seizures, subdural hematoma evacuation, knee surgery and hypertension presents to the ER with a history of intractable knee pain since morning after she has fallen down a flight of stairs. She noticed swelling of the knee for the same duration. In the ER, she was given Hibernia which did not relieve the pain. She experiences a throbbing severe pain. She reports having shortness of breath, which increases while lying down. She also reports having constipation and stool mixed with fresh bleeding since yesterday. She denies any chest pain, fever, abdominal pain, nausea vomiting or urinary symptoms. She denies any other complaints. Past medical history: Hypertension, hyperlipidemia Past surgical history: Knee surgery, CABG Smoking history: Quit. Smoked in her teens for 6 months, 1 pack per week. Alcohol: Never Drug abuse: She has been using marijuana actively since last 2 years. 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 Corrales Code status: Full code She lives in a house with a roommate. Home medications: Losartan, simvastatin, carvedilol, furosemide, Hibernia, and lansoprazole, levetiracetam, metoclopramide, naloxone, nitrofurantoin, potassium chloride, trazodone Review of Systems Review of Systems Patient was seen and examined at the bedside. Patient complains of knee pain, shortness of breath, constipation, rectal per rectal bleeding. No other complaints reported. Rest of the ROS is negative. Allergies: Coded Allergies: Tetracycline (Verified Allergy, Intermediate, 03/09/14) Codeine (Verified Allergy, Unknown, Itchiness, 01/05/19) Erythromycin (Verified Allergy, Unknown, 12/16/16) Medications Current Medications Medications Dose Ordered Sig/Leon Route Start Time Stop Time Status Last Admin Dose Admin Ondansetron HCl 4 mg Q4HP PRN IV 12/27/24 21:00 UNV Morphine Sulfate 2 mg Q4HPRN PRN IV 12/27/24 21:00 UNV Exam Vital Signs Vital Signs Date Time Temp Pulse Resp B/P (MAP) Pulse Ox O2 Delivery O2 Flow Rate FiO2 12/27/24 20:16 98.7 65 16 171/61 (97) 96 98.7 12/27/24 15:03 Room Air Exam Pt is lying on bed General Appearance: Alert, Oriented X3, Cooperative, Mild distress HEENT: Atraumatic, Mucous membranes moist/pink Respiratory: Clear to auscultation, Normal air movement, No added sounds Cardiovascular: Regular rate, Normal S1, Normal S2, No murmurs Abdominal/ : Active bowel sounds, Soft, no distention, no tenderness Extremities: No edema, Normal pulses, tender swollen right knee joint Skin: No Significant rash, except past surgical scars Neuro: Normal speech, sensorimotor deficits none Psych/Mental Status: Mental status NL, Mood NL Nurse was there as combination technician during examination Labs/Xrays Labs Test 12/27/24 16:30 12/27/24 14:49 Range/Units Urine Color Yellow Yellow Urine Clarity Clear Clear Urine pH 5.5 5.0-9.0 Urine Specific [place] 1.032 1.001-1.035 Urine Protein 1+ H Negative Urine Ketones 1+ H Negative Urine Blood Negative Negative /uL Urine Nitrite Negative Negative Urine Bilirubin Negative Negative Urine Urobilinogen Normal Negative mg/dL Urine Leukocyte Esterase Negative Negative /uL Urine RBC 1 0 - 4 /hpf Urine Microscopic WBC 1 0-5 /HPF Urine Squamous Epithelial Cells Few <5 /hpf Urine Bacteria Few H None Seen /hpf Urine Mucus Few None Seen Urine Glucose Normal Normal mg/dL White Blood Count 13.2 H 4.4-10.8 10^3/uL Red Blood Count 4.14 4.0-5.20 10^6/uL Hemoglobin 13.7 12.2-16.2 g/dL Hematocrit 41.2 36.0-46.0 % Mean Corpuscular Volume 99.5 80.0-100.0 fL Mean Corpuscular Hemoglobin 33.2 H 28.0-32.0 pg Mean Corpuscular Hemoglobin Concent 33.4 32.0-36.0 g/dL Red Cell Distribution Width 12.3 11.8-14.3 % Platelet Count 98 L 140-450 10^3/uL Mean Platelet Volume 9.2 6.9-10.8 fL Neutrophils (%) (Auto) 82.2 H 37.0-80.0 % Lymphocytes (%) (Auto) 11.1 10.0-50.0 % Monocytes (%) (Auto) 6.1 0.0-12.0 % Eosinophils (%) (Auto) 0.1 0.0-7.0 % Basophils (%) (Auto) 0.5 0.0-2.0 % Neutrophils # (Auto) 10.8 H 1.6-8.6 10 ^3/uL Lymphocytes # (Auto) 1.5 0.4-5.4 10 ^3/uL Monocytes # (Auto) 0.8 0-1.3 10 ^3/uL Eosinophils # (Auto) 0 0-0.8 10 ^3/uL Basophils # (Auto) 0.1 0-0.2 10 ^3/uL Nucleated Red Blood Cells 0.1 % Sodium Level 144 136-145 mmol/L Potassium Level 4.3 3.5-5.1 mmol/L Chloride Level 109 H 98-107 mmol/L Carbon Dioxide Level 27 20-31 mmol/L Anion Gap 8 5-15 Blood Urea Nitrogen 20 9-23 mg/dL Creatinine 1.26 H 0.550-1.02 mg/dL Glomerular Filtration Rate Calc 48 >90 mL/min BUN/Creatinine Ratio 15.9 10.0-20.0 Serum Glucose 110 H 74-106 mg/dL Calcium Level 10.8 H 8.7-10.4 mg/dL SEPSIS Sepsis Screen Date sepsis recognized/suspect: Dec 27, 2024 Time Sepsis recognized/suspect: 1148 Recent Procedure: No On Antibiotic Therapy: No Respiratory Rate >20: No Heart Rate >90: No Temp<36 C (96.8 F) or >38.3 C: No SBP <90 or MAP <65 mmHG: No New Acute Mental Status Change: No Is the patient on CPAP, BIPAP,: No Physician Orders Ct R Knee Wo Contrast (12/27/24 14:28) Admit (12/27/24 20:59) Allergies (12/27/24 20:59) Code Status (12/27/24 20:59) Ondansetron Hcl (Zofran) (12/27/24 21:00) Complete Blood Count (12/28/24 04:00) Comprehensive Metabolic Panel (12/28/24 04:00) Echo 2d Mode Cardiac Dop (12/27/24 20:59) Morphine Sulfate Injection (12/27/24 21:00) Oxygen By Nasal Cannula (12/27/24 20:59) Stat Ekg For Chest Pain (12/27/24 20:59) Notify Md Of Changes From Base (12/27/24 20:59) Vehicle Assembly Inspector For 24 Hours (12/27/24 20:59) Emergency Dysrhythmia Protocol (12/27/24 20:59) Rhythm Strips Once Every Shift (12/27/24 20:59) * Orthopedic Consult (12/27/24 21:04) Losartan Tablet (Cozaar Tablet) (12/27/24 21:15) Chest Two Views Routine (12/27/24 21:10) Sodium Chloride 0.9% (12/27/24 21:15) Vital Signs Date Time Temp Pulse Resp B/P (MAP) Pulse Ox O2 Delivery O2 Flow Rate FiO2 12/27/24 20:16 98.7 65 16 171/61 (97) 96 98.7 12/27/24 15:59 69 18 140/40 (73) 97 12/27/24 15:03 64 16 97 Room Air 12/27/24 15:03 97.8 64 16 153/57 (89) 97 97.8 Laboratory Tests Test 12/27/24 14:49 White Blood Count 13.2 10^3/uL (4.4-10.8) H Medications Medications Dose Ordered Sig/Leon Route Start Time Stop Time Status Last Admin Dose Admin Acetaminophen/ Hydrocodone Bitart 1 tab ONCE ONCE PO 12/27/24 14:30 12/27/24 14:31 DC 12/27/24 15:00 1 TAB Assessment/Plan Assessment/Plan Severe knee pain with effusion due to meniscal or ligament injury Pain controlled by Hibernia and morphine CT scan of the right knee:No fracture seen. Moderately large joint effusion. Effusion layers out into 2 layers. Neither layers suggests fatty t issue.Narrowing of the medial compartment of the right knee.Consider MRI for further evaluation. Orthopedics consult done Shortness of breaths due to CHF/pneumonia WBC 13.2 Chest x-ray: No focal consolidation, mild cardiomegaly Echocardiography ordered Consult cardiology if necessary NENA likely due to VMN Creatinine 1.26 Hypercalcemia Serum calcium 10.8 Monitor labs closely Hyperglycemia Blood glucose 110 Moderate sliding scale GI prophylaxis: Pantoprazole DVT prophylaxis: Lovenox Diet: Cardiac Goals of care discussed with the patient for more than 27 minutes: Full code status Case discussed with Dr. Chung , patient and RN Plan discussed with: Patient, Other (RN) My Orders Orders - CONNOR,SANTA RESIDENT Procedure Category Date Status Time Admit ADMIT 12/27/24 Transmitted 20:59 Allergies JAMILA 12/27/24 In Process 20:59 Code Status CODE 12/27/24 Transmitted 20:59 Ondansetron Hcl PHA 12/27/24 Logged (Zofran) 21:00 Complete Blood Count LAB 12/28/24 Verified 04:00 Comprehensive LAB 12/28/24 Verified Metabolic Panel 04:00 Echo 2d Mode Cardiac US 12/27/24 Logged DOP 20:59 Morphine Sulfate PHA 12/27/24 Logged Injection 21:00 Oxygen By Nasal RT 12/27/24 Transmitted Cannula 20:59 Stat Ekg For Chest [facility] 12/27/24 In Process Pain 20:59 Notify Of Changes [facility] 12/27/24 In Process From Base 20:59 Vehicle Assembly Inspector For [facility] 12/27/24 In Process 24 Hours 20:59 Emergency Dysrhythmia [facility] 12/27/24 In Process Protocol 20:59 Rhythm Strips Once [facility] 12/27/24 In Process Every Shift 20:59 * Orthopedic Consult CONS 12/27/24 Transmitted 21:04 Losartan Tablet PHA 12/27/24 Logged (Cozaar Tablet) 21:15 Chest Two Views XY 12/27/24 Taken Routine 21:10 Sodium Chloride 0.9% PHA 12/27/24 Logged 21:15 Date of Service: Dec 27, 2024 Billing Provider: NITHYA CHUNG MD Common Visit Codes: [id number] INP/OBS CARE (HIGH) [place] RESIDENT Dec 27, 2024 21:39 NITHYA CHUNG MD Dec 31, 2024 16:10
--- NOTE | 2024-12-27 22:01 | DVH ---
XY CHEST TWO VIEWS ROUTINE CLINICAL HISTORY: Shortness of breaths COMPARISON: CT CHEST WITHOUT CONTRAST on DOS: 08/31/24, XY CHEST PORTABLE on DOS: 08/31/24 TECHNIQUE: Frontal and lateral view of the chest was obtained FINDINGS: Lines and Tubes: Left chest pacer. Median sternotomy wires. Lungs: No focal consolidation. Pleura: No effusion. No pneumothorax. Cardiomediastinal contours: mild cardiomegaly. Bones: No acute osseous abnormality. IMPRESSION: 1. No focal consolidation. Mild cardiomegaly.
[2024-12-28] VITALS (8 sets, daily range): BP systolic 138–168; BP diastolic 67–92; PULSE 60–81; RESP 17–21; TEMP 97.7–98.9; O2SAT 94–99
[2024-12-28] MEDS: MORPHINE SULFATE INJ 2 MG/ml SYRG IV PRN (01:50)
[2024-12-28] MEDS ORDERED: TOPI200T43 PO (04:27)
[2024-12-28] MEDS ORDERED: PANT40T PO (04:27)
[2024-12-28] MEDS ORDERED: DEXTROSE (50%) 50ML SYRG IV PRN (07:00)
[2024-12-28 09:06] LABS: Hematocrit 35.0 % (36.0-46.0); Hemoglobin 12.1 g/dL (12.2-16.2); Mean Corpuscular Hemoglobin 34.0 pg (28.0-32.0); Mean Corpuscular Volume 98.8 fL (80.0-100.0); Nucleated Red Blood Cells % 0.0 %
[2024-12-28 09:17] LABS: Alanine Aminotransferase 13 U/L (7-40); Albumin 3.7 g/dL (3.2-4.8); Alkaline Phosphatase 81 U/L (46-116); Anion Gap 7 (5-15); BUN/Creatinine Ratio 13.8 (10.0-20.0); Bilirubin, Total 1.1 mg/dL (0.2-1.0); Blood Urea Nitrogen 15 mg/dL (9-23); Calcium 10.2 mg/dL (8.7-10.4); Carbon Dioxide 25 mmol/L (20-31); Potassium 4.3 mmol/L (3.5-5.1); Sodium 142 mmol/L (136-145); Total Protein 6.1 g/dL (5.7-8.2)
[2024-12-28 09:21] LABS: Alanine Aminotransferase 14.0 U/L (7-40); Albumin 3.9 g/dL (3.2-4.8); Alkaline Phosphatase 79.0 U/L (46-116); Bilirubin, Total 1.1 mg/dL (0.2-1.0); Total Protein 6.1 g/dL (5.7-8.2)
[2024-12-28] MEDS: METOCLOPRAMIDE HCL 10 MG TAB PO SCH (09:40)
[2024-12-28] MEDS: APIXABAN 5 MG TAB PO SCH (09:40)
[2024-12-28] MEDS: CYCLOBENZAPRINE HCL 10 MG TAB PO SCH (09:41)
[2024-12-28] MEDS: CARVEDILOL 3.125 MG TAB PO SCH (09:41)
[2024-12-28] MEDS: levETIRAcetam 500 MG TAB PO SCH (09:42)
[2024-12-28] MEDS: LOSARTAN POTASSIUM 50 MG TAB PO SCH (09:42)
[2024-12-28] MEDS: HYDROcodone-ACET 7.5/325MG TAB PO SCH (09:48)
[2024-12-28] MEDS: PANTOPRAZOLE 40 MG/10 ML VIAL INJ IV SCH (09:49)
[2024-12-28] MEDS ORDERED: ENOXAPARIN SOD 30 MG/0.3 ML SYRINGE SC SCH (10:00)
[2024-12-28 10:09] LABS: Chloride 110 mmol/L (98-107); Glucose 132 mg/dL (74-106)
[2024-12-28 10:10] LABS: Bilirubin, Direct 0.3 mg/dL (<0.3)
[2024-12-28] MEDS: ACCU-CHEK COMFORT CURVE STRIP VI SCH (12:00)
[2024-12-28] MEDS: InsuLIN REG 1unit/0.01ml Soln (100units/ml) SC SCH (12:00)
[2024-12-28 12:28] LABS: INR 1.22 (0.9-1.15); Partial Thromboplastin Time 45.6 SEC (24.5-34.5); Prothrombin Time 12.7 sec (9.3-11.8)
[2024-12-28] MEDS: LACTULOSE 20Gm/30ML SOLN PO ONE (14:00)
[2024-12-28] MEDS: POLYETHYLENE GLYCOL 17 GM PWDR PO ONE (14:53)
[2024-12-28] MEDS: DOCUSATE SOD 100 MG CAP PO ONE (14:53)
--- NOTE | 2024-12-28 17:21 | DVHPNRES ---
Progress Note Date Seen: Dec 28, 2024 Resident Creating Document: PANCHITO HESTER RESIDENT Medical Necessity Reason Pt with a Central, PICC or Fol: No Subjective Review of Systems 64-year-old female with previous history of CABG 2 times, seizures, TOF, subdural hematoma evacuation, knee surgery and hypertension presents to the ER with a history of intractable knee pain since yesterday morning after she has fallen down a flight of stairs (14steps) as she was wearing socks and slipped. She noticed swelling of the right knee for the same duration. She denies any injury to her head but she felt pain in her knee which began to swell which is why she came directly to the emergency room. She Also reports having shortness of breath, which increases while lying down. She also reports having constipation and stool mixed with fresh bleeding since yesterday. She denies any chest pain, fever, abdominal pain, nausea vomiting or urinary symptoms. She denies any other complaints. Past medical history: Hypertension, hyperlipidemia Past surgical history: Knee surgery, CABG Social history: She lives in a house with a roommate. Patient reports she quit smoking in her teens and barely had 1 pack per week in the 6 months she did smoke. She has never drank alcohol. She reports using marijuana actively in the past year. 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 Corrales Code status: Full code ROS: 12/28/2024 patient was seen and examined by me at the bedside. Overnight events were reviewed. Patient still reports that she has pain in her medial side of her right knee. Shows no new active complaints. Since her creatinine is 1.26 we have ordered a urinary sodium, urinary creatinine and urinary protein. B12 folate levels came back normal. we have sent for fecal occult blood as hemoglobin level is low. BNP: 754.35. We are waiting on orthopedic consult. Patient given MiraLax and docusate for constipation. Objective vital signs Vital Sign Date Time Temp Pulse Resp B/P (MAP) Pulse Ox O2 Delivery O2 Flow Rate FiO2 12/28/24 15:23 62 16 142/60 12/28/24 13:00 98.9 98 98.9 12/28/24 08:00 Room Air* 0 21 Total Intake and Output 12/27/24 12/27/24 12/28/24 15:00 23:00 07:00 Intake Total 200 ml Balance 200 ml medications Current Medications Medications Dose Ordered Sig/Leon Route Start Time Stop Time Status Last Admin Dose Admin Ondansetron HCl 4 mg Q4HP PRN IV 12/27/24 21:00 Morphine Sulfate 2 mg Q4HPRN PRN IV 12/27/24 21:00 12/28/24 14:53 2 MG Apixaban 5 mg BID PO 12/28/24 10:00 12/28/24 09:40 5 MG Cyclobenzaprine HCl 10 mg DAILY PO 12/28/24 10:00 12/28/24 09:41 10 MG Acetaminophen/ Hydrocodone Bitart 1 tab BID PO 12/28/24 10:00 12/28/24 09:48 1 TAB Levetiracetam 750 mg BID PO 12/28/24 10:00 12/28/24 09:42 750 MG Metoclopramide HCl 10 mg BID PO 12/28/24 10:00 12/28/24 09:40 10 MG Carvedilol 6.25 mg BID PO 12/28/24 10:00 12/28/24 09:41 6.25 MG Losartan Potassium 100 mg DAILY PO 12/28/24 10:00 12/28/24 09:42 100 MG Atorvastatin Calcium 10 mg HS PO 12/28/24 22:00 Trazodone HCl 100 mg DAILY PO 12/28/24 10:00 Enoxaparin Sodium 30 mg DAILY SC 12/28/24 10:00 Hold Pantoprazole Sodium 40 mg DAILY IV 12/28/24 10:00 12/28/24 09:49 40 MG Diagnostic Test (Pha) 1 strip Q6HR 12/28/24 12:00 Insulin Human Regular Q6HR SC 12/28/24 12:00 Dextrose 50 ml UD PRN IV 12/28/24 07:00 Docusate Sodium 100 mg BID PO 12/28/24 22:00 Examination Pt is lying on bed General Appearance: Alert, Oriented X3, Cooperative, Mild distress HEENT: Atraumatic, Mucous membranes moist/pink Respiratory: Clear to auscultation, Normal air movement, No added sounds Cardiovascular: Regular rate, Normal S1, Normal S2, systolic murmur present Abdominal/ : Active bowel sounds, Soft, no distention, no tenderness Extremities: No edema, Normal pulses, tender swollen right knee joint, more tender in the medial side decreased range of motion both active and passive Skin: No Significant rash, except past surgical scars Neuro: Normal speech, sensorimotor deficits none Psych/Mental Status: Mental status NL, Mood NL Nurse was there as roll on man during examination laboratory and microbiology Laboratory Tests 12/28/24 08:41 Test 12/28/24 08:41 Range/Units Serum Glucose 132 H 74-106 mg/dL Labs and/or images reviewed: Labs reviewed by me, Image(s) reviewed by me Problem List/Assessment/Plan Problem List/Assessment/Plan #Shortness of breaths due to CHF #HFrEF 30% #S/P pacemaker #Rheumatic mitral valve disease #Moderate , moderate aortic insufficiency -BNP: 754.35 -WBC 13.2 -Chest x-ray: No focal consolidation, mild cardiomegaly -Echocardiography, pending #NENA likely due to VMN -Creatinine 1.26 #Hypercalcemia -Serum calcium 10.8 -Monitor labs closely #Hyperglycemia -Blood glucose 110 - HbA1c ordered -Moderate sliding scale 9 #Constipation -MiraLax and docusate ordered # history of atrial flutter -Continue Eliquis #History of seizures -Continue levetiracetam GI prophylaxis: Pantoprazole DVT prophylaxis: Lovenox Diet: Cardiac Goals of care discussed with the patient for more than 27 minutes: Full code status Case discussed with Dr. Cook , patient and RN Plan discussed with: Patient, Other (rn) My Orders My Orders Orders - PANCHITO HESTER Procedure Category Date Status Time Urine Sodium LAB 12/28/24 Logged 08:38 Urine Creatinine LAB 12/28/24 Logged 08:38 Urine Protein LAB 12/28/24 Logged 08:38 Date of Service: Dec 28, 2024 Billing Provider: DALTON RAINES MD Common Visit Codes: [id number] INP/OBS CARE(HIGH) PANCHITO HESTER Dec 28, 2024 17:21 DALTON RAINES MD Jan 10, 2025 02:13
--- NOTE | 2024-12-28 20:42 | DVHSR ---
APPROVED REPORT EXAM: Two-dimensional and M-mode echocardiogram with Doppler and color Doppler. Blood Pressure: 151/70 mmHg INDICATION Dyspnea RISK FACTORS Height: 5'3"115, Weight: DIMENSIONS LVDd4.2 (3.8-5.7cm)LA (2D)4.5 (1.9-4.0cm)Aortic Root3.0 (2.0-3.7cm) LVDs3.6 (2.5-4.0cm)LA (MM) (1.9-4.0cm)Aortic Cusp Exc0.7 (1.5-2.0cm) EF (%) 30.0 (55-70%)Rt. Atrium5.0 (1.9-4.0cm)Asc. Aorta cm IVSd1.2 (0.7-1.1cm)RV (D)5.6 (1.8-2.4cm) PWd1.0 (0.7-1.1cm) Mitral Valve MitralMitral Stenosis E/A ratio0.02D MVA2.74cm2 Aortic Valve Aortic ValveAortic Stenosis V11.21m/Johnathan Mean GR.27mmHg V23.37m/Johnathan Peak GR.45mmHg LVOT Diameter1.8 (1.8-2.4cm)Doppler AVA0.91cm2 2D AVA1.31cm2 AI P 1/2 Tgtc370.42ms Pulmonic Valve V20.99m/s Tricuspid Valve TR Velocity2.63m/s [id number] Conclusion MODERATE DEGREE LVH AND MODERATE DEGREE LV DIASTOLIC DYSFUNCTION LV EF IS BORDERLINE REDUCED AND IS 45% SYSTOLIC AND DIASTOLIC LV DYSFUNCTION CALCIFIED TIPS OF MITRAL LEAFLETS MODERATELLY DILATED LA MODERATE DEGREE MR HEAVILY CALCIFIED AORTIC LEAFLETS PEAK AORTIC GRADIENT IS 45 MM OF HG AND MEAN GRADIENT IS 27 MM OF HG CRITICAL AORTIC STENOSIS AORTIC VALVE AREA IS ONLY 0.91 CM SQUARE MODERATE DEGREE AORTIC REGURGITATION NO EFFUSION
--- NOTE | 2024-12-28 21:07 | DVHINCON2 ---
Consult Note Consult Consult Note Reason for Consult: Evaluation of right knee pain and swelling after recent fall. --- History of Present Illness: Ms. Loree Mattson is a 64-year-old female admitted as an inpatient after sustaining a ground-level fall one day ago while descending stairs. Since the incident, she has developed moderate right knee swelling and inability to fully extend the knee. She reports moderate localized pain and denies hearing a pop at the time of injury. She denies fever, chills, prior knee surgery, or recent injections. She is on chronic anticoagulation for cardiac disease, which raises concern for hemarthrosis as a potential contributor to her symptoms. --- Examination: Inspection: Moderate effusion of the right knee, no ecchymosis, no open skin lesions. Palpation: Diffuse tenderness to palpation across the joint line and peripatellar area. Range of Motion: Active ROM 10 to 110 with pain at extremes; unable to achieve full extension. Strength: Mild extensor lag of 810 degrees noted. Neurovascular: Distal pulses intact; no sensory or motor deficits. --- Imaging: CT Right Knee: No acute fracture or dislocation.effusion noted --- Assessment: 1. Right knee pain and swelling after trauma likely hemoarthrosis versus intra-articular soft tissue injury 2. Concern for extensor mechanism injury (e.g., partial quadriceps or patellar tendon tear) 3. Patient on anticoagulation possible traumatic hemarthrosis causing pseudo- extensor lag --- Plan: MRI right knee without contrast to evaluate for: Quadriceps or patellar tendon rupture Articular cartilage injuries Ligamentous or meniscal pathology Joint aspiration of the right knee will be offered: To relieve pain To improve range of motion To analyze fluid if needed (appearance, cell count if infection suspected) Hold anticoagulation only if medically cleared (to minimize procedural risk). Continue ice, elevation, knee immobilizer for comfort. Follow MRI results and aspirate if swelling persists or mechanical block remains. --- Thank you for the consult. Please feel free to reach out for any questions or if MRI shows operative findings. Plan discussed with: Patient, Other (bedside nurse) Visit Coding Surgery Date of Service if different f: Dec 28, 2024 Billing Provider: KENTON SCOTT Surgery Visit Codes: [id number] - INP CONSULT <55 MIN KENTON SCOTT Dec 28, 2024 21:07
[2024-12-28] MEDS: ATORVASTATIN 20 MG TAB PO SCH (22:17)
[2024-12-28] MEDS: DOCUSATE SOD 100 MG CAP PO SCH (22:18)
[2024-12-28] MEDS: SPIRONOLACTONE 25 MG TAB PO ONE (22:24)
[2024-12-28] MEDS: EMPAGLIFLOZIN 10 MG TAB PO SCH (22:24)
[2024-12-29] VITALS (8 sets, daily range): BP systolic 122–163; BP diastolic 67–81; PULSE 66–113; RESP 16–19; TEMP 97.4–98.7; O2SAT 95–99
[2024-12-29 06:21] LABS: Nucleated Red Blood Cells % 0.1 %
[2024-12-29 06:23] LABS: Hematocrit 36.8 % (36.0-46.0); Hemoglobin 12.9 g/dL (12.2-16.2); Mean Corpuscular Hemoglobin 34.3 pg (28.0-32.0); Mean Corpuscular Volume 98.0 fL (80.0-100.0)
[2024-12-29 06:33] LABS: Free T4 (Free Thyroxine) 1.4 ng/dL (0.89-1.76)
[2024-12-29] MEDS: SPIRONOLACTONE 25 MG TAB PO SCH (09:14)
--- NOTE | 2024-12-29 12:59 | DVHPNRES ---
Progress Note Date Seen: Dec 29, 2024 Resident Creating Document: PANCHITO HESTRE RESIDENT Medical Necessity Reason Pt with a Central, PICC or Fol: No Subjective Review of Systems 64-year-old female with previous history of CABG 2 times, seizures, TOF, subdural hematoma evacuation, knee surgery and hypertension presents to the ER with a history of intractable knee pain since yesterday morning after she has fallen down a flight of stairs (14steps) as she was wearing socks and slipped. She noticed swelling of the right knee for the same duration. She denies any injury to her head but she felt pain in her knee which began to swell which is why she came directly to the emergency room. She Also reports having shortness of breath, which increases while lying down. She also reports having constipation and stool mixed with fresh bleeding since yesterday. She denies any chest pain, fever, abdominal pain, nausea vomiting or urinary symptoms. She denies any other complaints. Past medical history: Hypertension, hyperlipidemia Past surgical history: Knee surgery, CABG Social history: She lives in a house with a roommate. Patient reports she quit smoking in her teens and barely had 1 pack per week in the 6 months she did smoke. She has never drank alcohol. She reports using marijuana actively in the past year. Allergies: Erythromycin, tetracycline Home medications: Losartan, simvastatin, carvedilol, furosemide, Amity, and lansoprazole, levetiracetam, metoclopramide, naloxone, nitrofurantoin, potassium chloride, trazodone PCP and consumer electronics merchandiser: Dr. Corrales Code status: Full code ROS: 12/28/2024 patient was seen and examined by me at the bedside. Overnight events were reviewed. Patient still reports that she has pain in her medial side of her right knee. Shows no new active complaints. Since her creatinine is 1.26 we have ordered a urinary sodium, urinary creatinine and urinary protein. B12 folate levels came back normal. we have sent for fecal occult blood as hemoglobin level is low. BNP: 754.35. We are waiting on orthopedic consult. Patient given MiraLax and docusate for constipation. 12/29/2024 Patient was seen and examined by me at the bedside. Overnight events were reviewed. Patient still has pain and effusion in her knee. She says ice helps a little bit and elevation has helped a little bit as well. We have added Aldactone and Jardiance for her. We held Eliquis as arthrocentesis is being done today. Since patient's blood glucose has been constantly normal an HbA1c is 5.1 we have stopped her Accu-Cheks and sliding scale insulin. MRI could not be done because patient has a pacemaker. We are now waiting for Orthopedics to do arthrocentesis. Patient's echo showed LVEF 45%, critical , cardiology consult pending. Objective vital signs Vital Sign Date Time Temp Pulse Resp B/P (MAP) Pulse Ox O2 Delivery O2 Flow Rate FiO2 12/29/24 10:16 97 129/76 12/29/24 09:18 18 12/29/24 09:00 98.4 98 98.4 12/29/24 08:00 Room Air* 0 21 Total Intake and Output 12/28/24 12/28/24 12/29/24 15:00 23:00 07:00 Intake Total 350 ml 500 ml Output Total 500 ml Balance 350 ml 0 ml medications Current Medications Medications Dose Ordered Sig/Leon Route Start Time Stop Time Status Last Admin Dose Admin Ondansetron HCl 4 mg Q4HP PRN IV 12/27/24 21:00 Morphine Sulfate 2 mg Q4HPRN PRN IV 12/27/24 21:00 12/29/24 09:18 2 MG Apixaban 5 mg BID PO 12/28/24 10:00 Hold 12/28/24 22:17 5 MG Cyclobenzaprine HCl 10 mg DAILY PO 12/28/24 10:00 12/29/24 09:17 10 MG Acetaminophen/ Hydrocodone Bitart 1 tab BID PO 12/28/24 10:00 12/29/24 10:47 1 TAB Levetiracetam 750 mg BID PO 12/28/24 10:00 12/29/24 09:16 750 MG Metoclopramide HCl 10 mg BID PO 12/28/24 10:00 12/29/24 09:17 10 MG Carvedilol 6.25 mg BID PO 12/28/24 10:00 12/29/24 09:16 6.25 MG Losartan Potassium 100 mg DAILY PO 12/28/24 10:00 12/29/24 09:15 100 MG Atorvastatin Calcium 10 mg HS PO 12/28/24 22:00 12/28/24 22:17 10 MG Pantoprazole Sodium 40 mg DAILY IV 12/28/24 10:00 12/29/24 09:14 40 MG Docusate Sodium 100 mg BID PO 12/28/24 22:00 12/29/24 09:14 100 MG Spironolactone 25 mg DAILY PO 12/29/24 10:00 12/29/24 09:14 25 MG Empaglifozin 10 mg DAILY PO 12/28/24 19:00 12/29/24 09:16 10 MG Examination Pt is lying on bed General Appearance: Alert, Oriented X3, Cooperative, Mild distress HEENT: Atraumatic, Mucous membranes moist/pink Respiratory: Clear to auscultation, Normal air movement, No added sounds Cardiovascular: Regular rate, Normal S1, Normal S2, systolic murmur present Abdominal/ : Active bowel sounds, Soft, no distention, no tenderness Extremities: No edema, Normal pulses, tender swollen right knee joint, more tender in the medial side decreased range of motion both active and passive Skin: No Significant rash, except past surgical scars Neuro: Normal speech, sensorimotor deficits none Psych/Mental Status: Mental status NL, Mood NL Nurse was there as dredge mechanic during examination laboratory and microbiology Laboratory Tests 12/29/24 05:17 12/28/24 08:41 Test 12/28/24 08:41 Range/Units Serum Glucose 132 H 74-106 mg/dL Labs and/or images reviewed: Labs reviewed by me, Image(s) reviewed by me Problem List/Assessment/Plan Problem List/Assessment/Plan #Severe knee pain with effusion due to meniscal or ligament injury -Pain controlled by Amity and morphine -CT scan of the right knee: No fracture seen. Moderately large joint effusion. Effusion layers out -into 2 layers. Neither layers suggests fatty tissue. Narrowing of the medial compartment of the right knee. Consider MRI for further evaluation. -Ortho consult suggested: MRI right knee without contrast to evaluate for: Quadriceps or patellar tendon rupture, Articular cartilage injuries, Ligamentous or meniscal pathology; Joint aspiration of the right knee will be offered; Hold anticoagulation only if medically cleared (to minimize procedural risk). Continue ice, elevation, knee immobilizer for comfort. Follow MRI results and aspirate if swelling persists or mechanical block remains. 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 Cardio consult, pending #NENA likely due to VMN -Creatinine 1.26 #Hypercalcemia -Serum calcium 10.8 -Monitor labs closely #Hyperglycemia, resolved, due to stress -Blood glucose 110 on admission, normal is last two Accu-Cheks - HbA1c 5.1 -Moderate sliding scale, stopped now #Constipation -MiraLax and docusate ordered # history of atrial flutter -Continue Eliquis #History of seizures -Continue levetiracetam GI prophylaxis: Pantoprazole DVT prophylaxis: Lovenox Diet: Cardiac Goals of care discussed with the patient for more than 27 minutes: Full code status Case discussed with Dr. Cook , patient and RN Plan discussed with: Patient, Other (rn) Date of Service: Dec 29, 2024 Billing Provider: DALTON RAINES MD Common Visit Codes: [id number] INP/OBS CARE(HIGH) PANCHITO HESTER RESIDENT Dec 29, 2024 12:59 DALTON RAINES MD Jan 10, 2025 02:28
--- NOTE | 2024-12-29 20:35 | DVHPN2 ---
Progress Note Progress Note Progress Note Right Knee Pain and Swelling --- Subjective: The patient was seen yesterday for right knee pain and swelling after a ground- level fall while descending stairs. She reported difficulty with range of motion and significant knee swelling. Notably, the patient is on blood thinners. Today, no changes in her knee pain or swelling reported by pt. --- Objective: Yesterdays Exam: Right knee ROM: 41986 Notable effusion Concern for hemoarthrosis due to anticoagulation use Todays Findings: Aspiration: 90 cc of marcin blood aspirated from right knee joint Post-Aspiration Exam: ROM: 0 extension to 110 flexion, with pain at terminal flexion Minimal extensor lag (~5) likely due to pain (imporved from yesterday) No erythema, warmth, or skin breakdown noted Grossly neurovascularly intact MRI: Not obtained due to presence of a pacemaker Lab Studies: Synovial fluid aspirate, predominantly blood-tinged, was sent today for cell count and culture. Will evaluate results once available tomorrow. --- Assessment: 1. Right knee hemoarthrosis secondary to ground-level fall and anticoagulant use 2. Status post aspiration with symptomatic relief 3. Awaiting synovial fluid analysis (cell count and culture) to rule out infection or inflammatory process ct right knee: 1. No fracture seen 2. Moderately large joint effusion. Effusion layers out into 2 layers. Neither layers suggests fatty tissue. 3. Narrowing of the medial compartment of the right knee. --- Plan: Continue inpatient care Start inpatient physical therapy focusing on ROM and strengthening Apply compression wrap to right knee Monitor for recurrent swelling or decreased ROM Reassess daily; follow-up pending pain resolution and full extension temple MRI not feasible due to pacemaker clinical monitoring and physical exam to guide further evaluation Synovial fluid results to be reviewed tomorrow by hospitalist for infection or other findings(labs ordered today to include cell count and Culture); request inpatient team to notify orthopedic once lab values are available for formal review case discussed with Dr. Felipe who agreed with above plan Plan discussed with: Patient (bedside nurse), Other (rn) Visit Coding Surgery Date of Service if different f: Dec 29, 2024 Billing Provider: KENTON SCOTT Surgery Visit Codes: 04459 - INP CONSULT <55 MIN KENTON SCOTT Dec 29, 2024 20:35
[2024-12-30] VITALS (8 sets, daily range): BP systolic 111–145; BP diastolic 41–72; PULSE 59–84; RESP 16–18; TEMP 97.4–98.4; O2SAT 93–98
[2024-12-30 06:18] LABS: Hematocrit 36.1 % (36.0-46.0); Hemoglobin 12.2 g/dL (12.2-16.2); Mean Corpuscular Hemoglobin 33.5 pg (28.0-32.0); Mean Corpuscular Volume 98.9 fL (80.0-100.0); Nucleated Red Blood Cells % 0.1 %
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
--- NOTE | 2024-12-30 17:01 | DVHPNRES ---
Progress Note Date Seen: Dec 30, 2024 Resident Creating Document: PACNHITO HESTER RESIDENT Medical Necessity Reason Pt with a Central, PICC or Fol: No Subjective Review of Systems 64-year-old female with previous history of CABG 2 times, seizures, TOF, subdural hematoma evacuation, knee surgery and hypertension presents to the ER with a history of intractable knee pain since yesterday morning after she has fallen down a flight of stairs (14steps) as she was wearing socks and slipped. She noticed swelling of the right knee for the same duration. She denies any injury to her head but she felt pain in her knee which began to swell which is why she came directly to the emergency room. She Also reports having shortness of breath, which increases while lying down. She also reports having constipation and stool mixed with fresh bleeding since yesterday. She denies any chest pain, fever, abdominal pain, nausea vomiting or urinary symptoms. She denies any other complaints. Past medical history: Hypertension, hyperlipidemia Past surgical history: Knee surgery, CABG Social history: She lives in a house with a roommate. Patient reports she quit smoking in her teens and barely had 1 pack per week in the 6 months she did smoke. She has never drank alcohol. She reports using marijuana actively in the past year. Allergies: Erythromycin, tetracycline Home medications: Losartan, simvastatin, carvedilol, furosemide, Shoshone, and lansoprazole, levetiracetam, metoclopramide, naloxone, nitrofurantoin, potassium chloride, trazodone PCP and social work nurse: Dr. Corrales Code status: Full code ROS: 12/28/2024 patient was seen and examined by me at the bedside. Overnight events were reviewed. Patient still reports that she has pain in her medial side of her right knee. Shows no new active complaints. Since her creatinine is 1.26 we have ordered a urinary sodium, urinary creatinine and urinary protein. B12 folate levels came back normal. we have sent for fecal occult blood as hemoglobin level is low. BNP: 754.35. We are waiting on orthopedic consult. Patient given MiraLax and docusate for constipation. 12/29/2024 Patient was seen and examined by me at the bedside. Overnight events were reviewed. Patient still has pain and effusion in her knee. She says ice helps a little bit and elevation has helped a little bit as well. We have added Aldactone and Jardiance for her. We held Eliquis as arthrocentesis is being done today. Since patient's blood glucose has been constantly normal an HbA1c is 5.1 we have stopped her Accu-Cheks and sliding scale insulin. MRI could not be done because patient has a pacemaker. We are now waiting for Orthopedics to do arthrocentesis. Patient's echo showed LVEF 45%, critical , cardiology consult pending. 12/30/2024: Patient was seen and examined by me at the bedside. Overnight events reviewed. Patient had arthrocentesis done yesterday. We are waiting lab evaluation of cell count and differential. We will inform Orthopedics as we get it. Patient has a PT evaluation and physical therapy today. We consulted Cardiology for her critical , cardiology consult suggested a ANA procedure so patient has been kept NPO and on tele. We are going to be monitoring her TFT, magnesium levels have been ordered, pending. Potassium is at 4.3 now as they have asked us to maintain it above 4. [facility] pacemaker we will also be evaluated. Order placed Objective vital signs Vital Sign Date Time Temp Pulse Resp B/P (MAP) Pulse Ox O2 Delivery O2 Flow Rate FiO2 12/30/24 13:00 97.8 70 16 113/54 (73) 93 97.8 12/30/24 08:00 Room Air* 0 21 Total Intake and Output 12/29/24 12/29/24 12/30/24 15:00 23:00 07:00 Intake Total 1475 ml 300 ml Output Total 400 ml 625 ml Balance 1075 ml -325 ml medications Current Medications Medications Dose Ordered Sig/Leon Route Start Time Stop Time Status Last Admin Dose Admin Ondansetron HCl 4 mg Q4HP PRN IV 12/27/24 21:00 Morphine Sulfate 2 mg Q4HPRN PRN IV 12/27/24 21:00 12/29/24 14:33 2 MG Apixaban 5 mg BID PO 12/28/24 10:00 12/30/24 12:02 5 MG Cyclobenzaprine HCl 10 mg DAILY PO 12/28/24 10:00 12/30/24 09:31 10 MG Acetaminophen/ Hydrocodone Bitart 1 tab BID PO 12/28/24 10:00 12/30/24 09:32 1 TAB Levetiracetam 750 mg BID PO 12/28/24 10:00 12/30/24 09:32 750 MG Metoclopramide HCl 10 mg BID PO 12/28/24 10:00 12/30/24 09:31 10 MG Carvedilol 6.25 mg BID PO 12/28/24 10:00 12/30/24 09:33 6.25 MG Losartan Potassium 100 mg DAILY PO 12/28/24 10:00 12/30/24 09:31 100 MG Atorvastatin Calcium 10 mg HS PO 12/28/24 22:00 12/29/24 23:55 10 MG Pantoprazole Sodium 40 mg DAILY IV 12/28/24 10:00 12/30/24 09:33 40 MG Docusate Sodium 100 mg BID PO 12/28/24 22:00 12/30/24 09:31 100 MG Spironolactone 25 mg DAILY PO 12/29/24 10:00 12/30/24 09:31 25 MG Empaglifozin 10 mg DAILY PO 12/28/24 19:00 12/30/24 09:32 10 MG Examination Pt is lying on bed General Appearance: Alert, Oriented X3, Cooperative, Mild distress HEENT: Atraumatic, Mucous membranes moist/pink Respiratory: Clear to auscultation, Normal air movement, No added sounds Cardiovascular: Regular rate, Normal S1, Normal S2, systolic murmur present Abdominal/ : Active bowel sounds, Soft, no distention, no tenderness Extremities: No edema, Normal pulses, mildly tender, mildly swollen right knee joint, more tender in the medial side decreased range of motion both active and passive Skin: No Significant rash, except past surgical scars Neuro: Normal speech, sensorimotor deficits none Psych/Mental Status: Mental status NL, Mood NL Nurse was there as campaign assistant during examination laboratory and microbiology Laboratory Tests 12/30/24 05:23 12/28/24 08:41 Test 12/28/24 08:41 Range/Units Serum Glucose 132 H 74-106 mg/dL Microbiology Date/Time Source Procedure Growth Status 12/29/24 09:27 Aspirate Gram Stain - Final Resulted 12/29/24 09:27 Aspirate Body Fluid Culture - Preliminary Resulted Labs and/or images reviewed: Labs reviewed by me, Image(s) reviewed by me Problem List/Assessment/Plan Problem List/Assessment/Plan #Severe knee pain with effusion due to meniscal or ligament injury -Pain controlled by Shoshone and morphine -CT scan of the right knee: No fracture seen. Moderately large joint effusion. Effusion layers out -into 2 layers. Neither layers suggests fatty tissue. Narrowing of the medial compartment of the right knee. Consider MRI for further evaluation. -Ortho consult suggested: MRI right knee without contrast to evaluate for: Quadriceps or patellar tendon rupture, Articular cartilage injuries, Ligamentous or meniscal pathology; Joint aspiration of the right knee will be offered; Hold anticoagulation only if medically cleared (to minimize procedural risk). Continue ice, elevation, knee immobilizer for comfort. Follow MRI results and aspirate if swelling persists or mechanical block remains. -MRI pending -arthrocentesis done by ortho, fluid cultures came back negative #Shortness of breaths due to CHF #Heart failure with improved EF (30% to 45% now) #S/P pacemaker #Rheumatic mitral valve disease #Moderate , moderate aortic insufficiency -BNP: 754.35 -WBC 13.2 -Chest x-ray: No focal consolidation, mild cardiomegaly -Echocardiography shows 45% ejection fraction, critical . Cardio consult, pending -Cardio consultation suggested: Manage on telemetry; EKG; Follow-up electrolytes and kidney function tests and correct abnormalities. Keep potassium above 4 and magnesium above 2; Long-term continuation of anticoagulation is advised. ANA is advised for further evaluation of cardiac chambers/valves -magnesium, pending -[facility] pacemaker we will also be evaluated #NENA likely due to VMN -Creatinine 1.26>1.09 #Hypercalcemia -Serum calcium 10.8 -Monitor labs closely #Hyperglycemia, resolved, due to stress -Blood glucose 110 on admission, normal is last two Accu-Cheks - HbA1c 5.1 -Moderate sliding scale, stopped now #Constipation -MiraLax and docusate ordered #history of atrial flutter -Continue Eliquis #History of seizures -Continue levetiracetam GI prophylaxis: Pantoprazole DVT prophylaxis: Lovenox Diet: Cardiac Goals of care discussed with the patient for more than 27 minutes: Full code status Case discussed with Dr. Cook , patient and RN Plan discussed with: Patient, Other My Orders My Orders Orders - PANCHITO HESTER RESIDENT Procedure Category Date Status Time Pt Request For Service PT 12/30/24 Logged 06:45 Magnesium LAB 12/30/24 Logged 16:48 Assess Pacemaker JAMILA 12/30/24 In Process Function 16:50 Electrocardigram EKG 12/30/24 Logged 16:54 Date of Service: Dec 30, 2024 Billing Provider: DALTON RAINES MD Common Visit Codes: [id number] INP/OBS CARE(HIGH) PANCHITO HESTER Dec 30, 2024 17:01 DALTON RAINES MD Jan 10, 2025 02:47
[2024-12-30 19:07] LABS: INR 1.19 (0.9-1.15); Partial Thromboplastin Time 45.6 SEC (24.5-34.5); Prothrombin Time 12.4 sec (9.3-11.8)
[2024-12-31] VITALS (12 sets, daily range): BP systolic 107–147; BP diastolic 42–72; PULSE 63–79; RESP 14–20; TEMP 97.5–98.5; O2SAT 94–100
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
[2024-12-31 07:29] LABS: Anion Gap 6 (5-15); Carbon Dioxide 26 mmol/L (20-31); Potassium 4.3 mmol/L (3.5-5.1); Sodium 143 mmol/L (136-145)
[2024-12-31 07:31] LABS: Calcium 10.0 mg/dL (8.7-10.4)
[2024-12-31 07:32] LABS: Hematocrit 35.8 % (36.0-46.0); Hemoglobin 12.2 g/dL (12.2-16.2); Mean Corpuscular Hemoglobin 33.7 pg (28.0-32.0); Mean Corpuscular Volume 98.7 fL (80.0-100.0); Nucleated Red Blood Cells % 0.1 %
[2024-12-31 07:35] LABS: BUN/Creatinine Ratio 18.0 (10.0-20.0); Blood Urea Nitrogen 22 mg/dL (9-23); Glucose 87 mg/dL (74-106)
[2024-12-31 07:46] LABS: Chloride 111 mmol/L (98-107)
[2024-12-31] MEDS: MIDAZOLAM HCL 2MG/2ML 2ml VIAL (1mg/ml) IV ONE ×2 (13:00)
[2024-12-31] MEDS: LIDOCAINE VISCOUS 2% 15ML UD PO ONE (13:00)
[2024-12-31] MEDS: fentaNYL CITRATE 100 MCG/2 ML VL IV ONE (13:00)
[2024-12-31] MEDS: MIDAZOLAM HCL 2MG/2ML 2ml VIAL (1mg/ml) ONE (13:24)
--- NOTE | 2024-12-31 15:11 | DVHOP2 ---
Operative Report Operative Report [facility] PROCEDURE REPORT [place], [place] Date of Service: 12/31/24 Respiratory Physician: Zackery العراقي MD PROCEDURES PERFORMED: trans esophageal echocardiogram, conscious sedation <15 mins, doppler assesment complete ANA, PREOPERATIVE DIAGNOSES: Aortic stenosis POSTOP DIAGNOSIS: aortic stenosis DESCRIPTION OF PROCEDURE: The patient or appropriate family signed informed consent understanding the risks, benefits and alternatives of the procedure, they wished to proceed. The patient was brought to the cardiac lab scientist in n.p.o. state. the patient was given 15 ml of oral viscous lidocaine. the patient was placed in a left lateral decubitus position with bite block in mouth. NExt conscious sedation was administered per lab scientist protocol with _3_ mg of versed and __75_ mcg of fentanyl. Next a ANA probe was advanced to the mid esophagus with ease and multiple planar images obtained. At the completion of the procedure , probe was removed and there were no immediate complications. 1. Left ventricle: LVEF was 35-40%. Mild diffuse hypokinesis of left ventricle was seen. moderate LVH 2. Right ventricle: Normal RV systolic function. 3. Left atrium: LA enlarged 4. Right atrium: RA was enlarged. Pacing wire was seen in right sided chambers 5. Mitral valve: Thickened leaflet tips and leaflet movement was in favor of rheumatic mitral disease. At most moderate Mitral regurgitation was seen. MMild to moderate Mitral stenosis was seen. no thrombus or vegetation noted 6. Left atrial appendage: No evidence of thrombus. 7. Aortic valve: Aortic valve was trileaflet. It had thickened leaflet tips with restricted motion in favor of Rheumatic disease. There was moderate Aortic Insufficiency. No vegetation noted. there is good opening of the leaflets of the AV. see surface echo for mean gradient across AV. 8. Pulmonic valve: Mild pulmonic insufficiency was seen. No significant stenosis. 9. Tricuspid valve: Moderate to severe tricuspid regurgitation was seen. 10. Interatrial septum: Negative color flow for right to left shunt was observed. 11. Pericardium: No significant effusion. 12. Thoracic aorta: No significant plaquing. ZACKERY العراقي MD Dec 31, 2024 15:11
--- NOTE | 2024-12-31 15:14 | DVHPN2 ---
Progress Note Date Seen: Dec 31, 2024 Medical Necessity Reason Pt with a Central, PICC or Fol: No Subjective Patient reports: Feels better Objective vital signs Vital Sign Date Time Temp Pulse Resp B/P (MAP) Pulse Ox O2 Delivery O2 Flow Rate FiO2 12/31/24 13:16 98.5 66 20 141/72 (95) 97 98.5 12/30/24 20:00 Room Air* 0 21 Total Intake and Output 12/30/24 12/30/24 12/31/24 15:00 23:00 07:00 Intake Total 400 ml 500 ml Output Total 250 ml Balance 400 ml 250 ml medications Current Medications Medications Dose Ordered Sig/Leon Route Start Time Stop Time Status Last Admin Dose Admin Ondansetron HCl 4 mg Q4HP PRN IV 12/27/24 21:00 Morphine Sulfate 2 mg Q4HPRN PRN IV 12/27/24 21:00 12/31/24 09:18 2 MG Apixaban 5 mg BID PO 12/28/24 10:00 12/30/24 21:46 5 MG Cyclobenzaprine HCl 10 mg DAILY PO 12/28/24 10:00 12/30/24 09:31 10 MG Acetaminophen/ Hydrocodone Bitart 1 tab BID PO 12/28/24 10:00 12/30/24 21:51 1 TAB Levetiracetam 750 mg BID PO 12/28/24 10:00 12/30/24 21:44 750 MG Metoclopramide HCl 10 mg BID PO 12/28/24 10:00 12/30/24 21:46 10 MG Carvedilol 6.25 mg BID PO 12/28/24 10:00 12/30/24 21:45 6.25 MG Losartan Potassium 100 mg DAILY PO 12/28/24 10:00 12/30/24 09:31 100 MG Atorvastatin Calcium 10 mg HS PO 12/28/24 22:00 12/30/24 21:46 10 MG Pantoprazole Sodium 40 mg DAILY IV 12/28/24 10:00 12/30/24 09:33 40 MG Docusate Sodium 100 mg BID PO 12/28/24 22:00 12/30/24 21:44 100 MG Spironolactone 25 mg DAILY PO 12/29/24 10:00 12/30/24 09:31 25 MG Empaglifozin 10 mg DAILY PO 12/28/24 19:00 12/30/24 09:32 10 MG Examination: GENERAL:Abnormal, HEENT:Abnormal, LUNGS:Abnormal, CVS:Abnormal, ABDOMEN:Abnormal laboratory and microbiology Laboratory Tests 12/31/24 06:07 Test 12/31/24 06:07 Range/Units Serum Glucose 87 74-106 mg/dL Problem List/Assessment/Plan Problem List/Assessment/Plan Mechanical fall Valvular heart disease Status post management for tetralogy of Fallot, 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
[2024-12-31] MEDS ORDERED: EMPA1TAB PO (16:09)
[2024-12-31] MEDS ORDERED: SPIR25TA PO (16:09)
[2024-12-31] MEDS ORDERED: DOCU-265 PO (16:09)
--- NOTE | 2024-12-31 18:09 | DVHDSRES ---
Discharge Summary Date of Admission Resident Creating Document: PANCHITO HESTER RESIDENT Dec 27, 2024 at 20:59 Date of Discharge: Dec 31, 2024 Admitting Diagnosis #Severe knee pain with effusion due possible meniscal or ligament injury Labs/Diagnostic Data: Laboratory Results Test 12/31/24 06:07 12/30/24 18:28 12/30/24 12:46 12/30/24 09:27 White Blood Count 7.4 10^3/uL (4.4-10.8) Red Blood Count 3.63 10^6/uL (4.0-5.20) Hemoglobin 12.2 g/dL (12.2-16.2) Hematocrit 35.8 % (36.0-46.0) Mean Corpuscular Volume 98.7 fL (80.0-100.0) Mean Corpuscular Hemoglobin 33.7 pg (28.0-32.0) Mean Corpuscular Hemoglobin Concent 34.1 g/dL (32.0-36.0) Red Cell Distribution Width 12.3 % (11.8-14.3) Platelet Count 81 10^3/uL (140-450) Mean Platelet Volume 9.2 fL (6.9-10.8) Neutrophils (%) (Auto) 55.0 % (37.0-80.0) Lymphocytes (%) (Auto) 28.6 % (10.0-50.0) Monocytes (%) (Auto) 10.9 % (0.0-12.0) Eosinophils (%) (Auto) 4.7 % (0.0-7.0) Basophils (%) (Auto) 0.8 % (0.0-2.0) Neutrophils # (Auto) 4.1 10 ^3/uL (1.6-8.6) Lymphocytes # (Auto) 2.1 10 ^3/uL (0.4-5.4) Monocytes # (Auto) 0.8 10 ^3/uL (0-1.3) Eosinophils # (Auto) 0.3 10 ^3/uL (0-0.8) Basophils # (Auto) 0.1 10 ^3/uL (0-0.2) Nucleated Red Blood Cells 0.1 % Sodium Level 143 mmol/L (136-145) Potassium Level 4.3 mmol/L (3.5-5.1) Chloride Level 111 mmol/L (98-107) Carbon Dioxide Level 26 mmol/L (20-31) Anion Gap 6 (5-15) Blood Urea Nitrogen 22 mg/dL (9-23) Creatinine 1.22 mg/dL (0.550-1.02) Glomerular Filtration Rate Calc 50 mL/min (>90) BUN/Creatinine Ratio 18.0 (10.0-20.0) Serum Glucose 87 mg/dL (74-106) Calcium Level 10.0 mg/dL (8.7-10.4) Prothrombin Time 12.4 sec (9.3-11.8) Prothrombin Time INR 1.19 (0.9-1.15) Activated Partial Thromboplast Time 45.6 SEC (24.5-34.5) Magnesium Level 2.0 mg/dL (1.6-2.6) Stool Occult Blood Negative (Negative) Stool Occult Blood Sample #3 (Negative) Body Fluid Source Joint fluid Body Fluid WBC (Manual) 1700 CUMM (0-200) Body Fluid RBC (Manual) 576945 CUMM (0-2000) Body Fluid Mononuclear Cells 39 % Body Fluid Polymorphonuclear Cells 61 % (0-25) Bile Fluid Crystals Negative Test 12/29/24 06:12 12/29/24 05:17 12/28/24 08:41 12/27/24 16:30 POC Glucose 97 mg/dl (70-106) Free Thyroxine (T4) Calculated 1.40 ng/dL (0.89-1.76) Total Triiodothyronine (TT3) 1.17 ng/mL (0.60-1.81) Hemoglobin A1c 5.1 % A1C (<5.7) Total Bilirubin 1.1 mg/dL (0.2-1.0) Direct Bilirubin 0.3 mg/dL (<0.3) Aspartate Amino Transferase (AST) 22 U/L (13-40) Alanine Aminotransferase (ALT) 14 U/L (7-40) Alkaline Phosphatase 79 U/L (46-116) B-Type Natriuretic Peptide 754.35 pg/mL (0-100) Total Protein 6.1 g/dL (5.7-8.2) Albumin 3.9 g/dL (3.2-4.8) Vitamin B12 Level 616 pg/mL (211-911) Folic Acid 12.08 ng/mL (>5.38) Thyroid Stimulating Hormone (TSH) 0.49 uIU/mL (0.55-4.78) Urine Color Yellow (Yellow) Urine Clarity Clear (Clear) Urine pH 5.5 (5.0-9.0) Urine Specific [place] 1.032 (1.001-1.035) Urine Protein 1+ (Negative) Urine Ketones 1+ (Negative) Urine Blood Negative /uL (Negative) Urine Nitrite Negative (Negative) Urine Bilirubin Negative (Negative) Urine Urobilinogen Normal mg/dL (Negative) Urine Leukocyte Esterase Negative /uL (Negative) Urine RBC 1 /hpf (0 - 4) Urine Microscopic WBC 1 /HPF (0-5) Urine Squamous Epithelial Cells Few /hpf (<5) Urine Bacteria Few /hpf (None Seen) Urine Mucus Few (None Seen) Urine Glucose Normal mg/dL (Normal) Other Laboratory Tests 12/31/24 06:07 Brief Hx & Hospital Course: 64-year-old female with previous history of CABG 2 times, seizures, TOF, subdural hematoma evacuation, knee surgery and hypertension presents to the ER with a history of intractable knee pain since yesterday morning after she has fallen down a flight of stairs (14steps) as she was wearing socks and slipped. She noticed swelling of the right knee for the same duration. She denies any injury to her head but she felt pain in her knee which began to swell which is why she came directly to the emergency room. She Also reports having shortness of breath, which increases while lying down. She also reports having constipation and stool mixed with fresh bleeding since yesterday. She denies any chest pain, fever, abdominal pain, nausea vomiting or urinary symptoms. She denies any other complaints. Past medical history: Hypertension, hyperlipidemia Past surgical history: Knee surgery, CABG Social history: She lives in a house with a roommate. Patient reports she quit smoking in her teens and barely had 1 pack per week in the 6 months she did smoke. She has never drank alcohol. She reports using marijuana actively in the past year. Allergies: Erythromycin, tetracycline Home medications: Losartan, simvastatin, carvedilol, furosemide, Sneads, and lansoprazole, levetiracetam, metoclopramide, naloxone, nitrofurantoin, potassium chloride, trazodone PCP and carton packaging machine operator: Dr. Corrales Code status: Full code Brief history of hospitalization: Patient came in with severe knee pain with effusion likely due to meniscal or ligament injury. We controlled her pain by Sneads and morphine. CT scan of the right knee showed no fracture, moderately large effusion. Which showed narrowing of the medial compartment of the right knee . We consulted orthopedics an MRI of the right knee without contrast was suggested. However since the patient has a [employer] pacemaker, we did an interrogation of it and noted that it was not compatible with MRI. Orthopedics did arthrocentesis and fluid cultures came back negative. patient's effusion has slightly gone down. In the hospital we elevated her leg, iced it and let it rest. Patient also had hyperglycemia initially which was resolved with moderate sliding scale insulin. It was sent after the last 2 Accu-Cheks manju ack to normal levels. For constipation that she had we gave her MiraLAX and docusate. Since then she has had bowel movement yesterday. We continuing the patient's Eliquis for atrial flutter. We held it on the day of arthrocentesis. Patient's levetiracetam was continued for seizures. For shortness of breath we had also done an echocardiography and found out that her heart failure has improved with ejection fraction now being 45% compared to her last echo which was 30%. However it read that she has severe aortic stenosis for which we consulted Cardiology and they wanted to do a ANA procedure on her. It was done today and showed "moderate aortic insufficiency, mild mitral stenosis, no vegetations were seen, Aortic valve was trileaflet. It had thickened leaflet tips with restricted motion in favor of Rheumatic disease. There was moderate Aortic Insufficiency. No vegetation noted. there is good opening of the leaflets of the AV. see surface echo for mean gradient across AV. Thickened leaflet tips and leaflet movement was in favor of rheumatic mitral disease.35-40%. Mild diffuse hypokinesis of left ventricle was seen. moderate LVH ". Patient has been asked to follow up with Dr. Bose on Friday outpatient. she has communicated understanding and is now stable for discharge. For patient's ambulation home health services have been provided for physical therapy. she has also been discharged with crutches for ambulation. Patient has communicated understanding regarding this as well and has agreed with the discharge plan. For her cardiac point of view, we are continuing her home medication, and adding spironolactone 25 mg, Jardiance 20 mg per oral daily. Pt is lying on bed General Appearance: Alert, Oriented X3, Cooperative, Mild distress HEENT: Atraumatic, Mucous membranes moist/pink Respiratory: Clear to auscultation, Normal air movement, No added sounds Cardiovascular: Regular rate, Normal S1, Normal S2, systolic murmur present Abdominal/ : Active bowel sounds, Soft, no distention, no tenderness Extremities: No edema, Normal pulses, mildly tender, mildly swollen right knee joint Skin: No Significant rash, except past surgical scars Neuro: Normal speech, sensorimotor deficits none Psych/Mental Status: Mental status NL, Mood NL Nurse was there as self pay collector during examination instructions: follow up with pcp in 10 days followup at d/c clinic within 1 week follow up with Dr Bose outpatient clinic on Friday (01/04/2025). Please call the clinic ahead of time. Bear weight as tolerated, use crutches Home health-physical therapy Operations or Procedures CT R KNEE WO CONTRAST REASON: R/o fracture IMPRESSION: 1. No fracture seen 2. Moderately large joint effusion. Effusion layers out into 2 layers. Neither layers suggests fatty tissue. 3. Narrowing of the medial compartment of the right knee. 4. Consider MRI for further evaluation. 5. All CT scans at this medical facility are performed using dose modulation techniques as appropriate to a performed exam including the following: Automated exposure control was utilized; adjustment of the MA and/or KV according to patient size; and use of iterative reconstruction technique. XY CHEST TWO VIEWS ROUTINE CLINICAL HISTORY: Shortness of breaths IMPRESSION: No focal consolidation. Mild cardiomegaly. Condition at Discharge: Stable Final Diagnosis/Problems List #Severe knee pain with effusion due possible meniscal or ligament injury #Shortness of breaths due to CHF #Heart failure with improved EF (30% to 45% now) #S/P pacemaker #Rheumatic mitral valve disease #Moderate , moderate aortic insufficiency #NENA likely due to VMN #Hypercalcemia #Hyperglycemia, resolved, due to stress #Constipation #history of atrial flutter #History of seizures Discharge Disposition: Home Discharge Instruct/Medications Diet: Consistent carbohydrate, Cardiac 2g Na,low cholest Activity: Light activity Follow Up/Referral: follow up with pcp in 10 days follow up with Dr Bose outpatient clinic on Friday (01/04/2025). Please call the clinic ahead of time. followup at d/c clinic within 1 week Medications: tablet Spironolactone 25 mg orally daily tablet Jardiance 20 mg orally daily Resume home medications Scheduled Apixaban Base (Eliquis), 1 TAB PO BID, (Reported) Carvedilol (Carvedilol), 1 TAB PO BID, (Reported) Cyclobenzaprine HCl (Cyclobenzaprine Hydrochlo), 1 TAB PO DAILY, (Reported) Docusate Sodium (Docusate Sodium), 1 CAP PO TID, (Reported) Docusate Sodium (Docusate Sodium), 100 MG PO BID Empagliflozin (Jardiance), 10 MG PO DAILY Escitalopram Oxalate (Escitalopram Oxalate), 1 TAB PO DAILY, (Reported) Ferrous Sulfate (Ferosul), 1 TAB PO BID, (Reported) Fluoxetine HCl (Fluoxetine HCl), 1 CAP PO DAILY, (Reported) Furosemide (Furosemide), 1 TAB PO DAILY, (Reported) Hydrocodone-Acetaminophen (Hydrocodone/Acetaminophen 7.5-325 mg), 1 TAB PO BID, (Reported) Lansoprazole (Lansoprazole Dr), 1 CAP PO DAILY, (Reported) Levetiracetam (Keppra Tablet), 750 MG PO BID Lidocaine (Ztlido), 1 PATCH TOP DAILY, (Reported) Losartan Potassium (Losartan Potassium), 1 TAB PO DAILY, (Reported) Magnesium Oxide (Magnesium Oxide), 1 CAP PO DAILY, (Reported) Metoclopramide HCl (Metoclopramide Hydrochlor), 1 TAB PO BID, (Reported) Naloxone HCl (Naloxone Hydrochloride), 1 SPRAY VEGA UD, (Reported) Nitrofurantoin (Nitrofurantoin), 1 CAP PO BID Potassium Chloride (Potassium Chloride ER), 1 TAB PO DAILY, (Reported) Simvastatin (Simvastatin), 1 TAB PO DAILY, (Reported) Spironolactone (Aldactone), 25 MG PO DAILY Topiramate (Topiramate), 1 TAB PO BID, (Reported) Trazodone Hcl (Trazodone Hcl), 1 TAB PO DAILY, (Reported) Scheduled PRN Hydrocortisone Base (Hydrocortisone), 1 APPLIC TOP BID PRN PRN for HEMMORROID DISCOMFORT, (Reported) Miscellaneous Medications Pantoprazole Sodium Sesquihydr (Pantoprazole Sodium), 1 TAB PO, (Reported) Discharge Statement: "Patient was advised to return to the ER or call 911 if any headaches, dizziness, shortness of breath, chest pain, abdominal pain, bleeding, fevers, or worsening of medical condition. Patient was counseled about treatment plan, medications, possible side effects, patientverbalized understanding. All questions were answered to the best of my ability. This discharge took greater then 30 minutes in planning, reviewing documentation, counseling the patient, and discussing with other team members." ASSESSMENT ASSESSMENT Assessment #Severe knee pain with effusion due to meniscal or ligament injury PANCHITO HESTER RESIDENT Dec 31, 2024 18:09
[2025-01-01 01:00] VITALS: BP 106/52; PULSE 63; RESP 16; TEMP 97.6; O2SAT 97
[2025-01-01 05:00] VITALS: BP 119/61; PULSE 62; RESP 18; TEMP 97.4; O2SAT 95
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
[2025-01-01 08:00] VITALS: PULSE 70
[2025-01-01 09:00] VITALS: BP 131/69; PULSE 59; RESP 17; TEMP 98.9; O2SAT 97
[2025-01-01 13:00] VITALS: BP 125/89; PULSE 79; RESP 18; TEMP 97.9; O2SAT 99
--- NOTE | 2025-01-01 18:07 | DVHPNRES ---
Progress Note Date Seen: Jan 01, 2025 Resident Creating Document: PANCHITO HESTER RESIDENT Medical Necessity Reason Pt with a Central, PICC or Fol: No Subjective Review of Systems 64-year-old female with previous history of CABG 2 times, seizures, TOF, subdural hematoma evacuation, knee surgery and hypertension presents to the ER with a history of intractable knee pain since yesterday morning after she has fallen down a flight of stairs (14steps) as she was wearing socks and slipped. She noticed swelling of the right knee for the same duration. She denies any injury to her head but she felt pain in her knee which began to swell which is why she came directly to the emergency room. She Also reports having shortness of breath, which increases while lying down. She also reports having constipation and stool mixed with fresh bleeding since yesterday. She denies any chest pain, fever, abdominal pain, nausea vomiting or urinary symptoms. She denies any other complaints. Past medical history: Hypertension, hyperlipidemia Past surgical history: Knee surgery, CABG Social history: She lives in a house with a roommate. Patient reports she quit smoking in her teens and barely had 1 pack per week in the 6 months she did smoke. She has never drank alcohol. She reports using marijuana actively in the past year. Allergies: Erythromycin, tetracycline Home medications: Losartan, simvastatin, carvedilol, furosemide, [place], and lansoprazole, levetiracetam, metoclopramide, naloxone, nitrofurantoin, potassium chloride, trazodone PCP and dining room host: Dr. Corrales Code status: Full code ROS: 12/28/2024 patient was seen and examined by me at the bedside. Overnight events were reviewed. Patient still reports that she has pain in her medial side of her right knee. Shows no new active complaints. Since her creatinine is 1.26 we have ordered a urinary sodium, urinary creatinine and urinary protein. B12 folate levels came back normal. we have sent for fecal occult blood as hemoglobin level is low. BNP: 754.35. We are waiting on orthopedic consult. Patient given MiraLax and docusate for constipation. 12/29/2024 Patient was seen and examined by me at the bedside. Overnight events were reviewed. Patient still has pain and effusion in her knee. She says ice helps a little bit and elevation has helped a little bit as well. We have added Aldactone and Jardiance for her. We held Eliquis as arthrocentesis is being done today. Since patient's blood glucose has been constantly normal an HbA1c is 5.1 we have stopped her Accu-Cheks and sliding scale insulin. MRI could not be done because patient has a pacemaker. We are now waiting for Orthopedics to do arthrocentesis. Patient's echo showed LVEF 45%, critical , cardiology consult pending. 12/30/2024: Patient was seen and examined by me at the bedside. Overnight events reviewed. Patient had arthrocentesis done yesterday. We are waiting lab evaluation of cell count and differential. We will inform Orthopedics as we get it. Patient has a PT evaluation and physical therapy today. We consulted Cardiology for her critical , cardiology consult suggested a ANA procedure so patient has been kept NPO and on tele. We are going to be monitoring her TFT, magnesium levels have been ordered, pending. Potassium is at 4.3 now as they have asked us to maintain it above 4. [employer] pac[employer] we will also be evaluated. Order placed 01/01/2025 Patient was discharged yesterday but due to social sciences research scientist waiting upon [facility] to confirm home health services for PT, patient was kept overnight. Today morning physical therapy for home health was confirmed and patient was discharged. Patient did not have any complaints this morning. Rest of the ROS was negative. Objective vital signs Vital Sign Date Time Temp Pulse Resp B/P (MAP) Pulse Ox O2 Delivery O2 Flow Rate FiO2 01/01/25 13:00 97.9 79 18 125/89 (101) 99 97.9 01/01/25 08:00 Room Air* 0 21 Total Intake and Output 12/31/24 12/31/24 01/01/25 15:00 23:00 07:00 Intake Total 400 ml 480 ml Balance 400 ml 480 ml medications Current Medications Medications Dose Ordered Sig/Leon Route Start Time Stop Time Status Last Admin Dose Admin Ondansetron HCl 4 mg Q4HP PRN IV 12/27/24 21:00 Morphine Sulfate 2 mg Q4HPRN PRN IV 12/27/24 21:00 01/01/25 08:11 2 MG Apixaban 5 mg BID PO 12/28/24 10:00 01/01/25 10:00 5 MG Cyclobenzaprine HCl 10 mg DAILY PO 12/28/24 10:00 01/01/25 10:00 10 MG Acetaminophen/ Hydrocodone Bitart 1 tab BID PO 12/28/24 10:00 01/01/25 10:00 1 TAB Levetiracetam 750 mg BID PO 12/28/24 10:00 01/01/25 09:59 750 MG Metoclopramide HCl 10 mg BID PO 12/28/24 10:00 01/01/25 10:00 10 MG Carvedilol 6.25 mg BID PO 12/28/24 10:00 01/01/25 10:01 6.25 MG Losartan Potassium 100 mg DAILY PO 12/28/24 10:00 01/01/25 10:00 100 MG Atorvastatin Calcium 10 mg HS PO 12/28/24 22:00 12/31/24 21:14 10 MG Pantoprazole Sodium 40 mg DAILY IV 12/28/24 10:00 01/01/25 09:58 40 MG Docusate Sodium 100 mg BID PO 12/28/24 22:00 01/01/25 10:00 100 MG Spironolactone 25 mg DAILY PO 12/29/24 10:00 01/01/25 10:00 25 MG Empaglifozin 10 mg DAILY PO 12/28/24 19:00 01/01/25 10:00 10 MG Examination Pt is lying on bed General Appearance: Alert, Oriented X3, Cooperative, Mild distress HEENT: Atraumatic, Mucous membranes moist/pink Respiratory: Clear to auscultation, Normal air movement, No added sounds Cardiovascular: Regular rate, Normal S1, Normal S2, systolic murmur present Abdominal/ : Active bowel sounds, Soft, no distention, no tenderness Extremities: No edema, Normal pulses, mildly tender, mildly swollen right knee joint, more tender in the medial side decreased range of motion both active and passive Skin: No Significant rash, except past surgical scars Neuro: Normal speech, sensorimotor deficits none Psych/Mental Status: Mental status NL, Mood NL Nurse was there as computer applications engineer during examination laboratory and microbiology Laboratory Tests 12/31/24 06:07 Test 12/31/24 06:07 Range/Units Serum Glucose 87 74-106 mg/dL Microbiology Date/Time Source Procedure Growth Status 12/29/24 09:27 Aspirate Gram Stain - Final Resulted 12/29/24 09:27 Aspirate Body Fluid Culture - Preliminary Resulted Labs and/or images reviewed: Labs reviewed by me, Image(s) reviewed by me Problem List/Assessment/Plan Problem List/Assessment/Plan #Severe knee pain with effusion due to meniscal or ligament injury -Pain controlled by [place] and morphine -CT scan of the right knee: No fracture seen. Moderately large joint effusion. Effusion layers out -into 2 layers. Neither layers suggests fatty tissue. Narrowing of the medial compartment of the right knee. Consider MRI for further evaluation. -Ortho consult suggested: MRI right knee without contrast to evaluate for: Quadriceps or patellar tendon rupture, Articular cartilage injuries, Ligamentous or meniscal pathology; Joint aspiration of the right knee will be offered; Hold anticoagulation only if medically cleared (to minimize procedural risk). Continue ice, elevation, knee immobilizer for comfort. Follow MRI results and aspirate if swelling persists or mechanical block remains. -MRI pending -arthrocentesis done by ortho, fluid cultures came back negative #Shortness of breaths due to CHF #Heart failure with improved EF (30% to 45% now) #S/P pacemaker #Rheumatic mitral valve disease #Moderate , moderate aortic insufficiency -BNP: 754.35 -WBC 13.2 -Chest x-ray: No focal consolidation, mild cardiomegaly -Echocardiography shows 45% ejection fraction, critical . Cardio consult, pending -Cardio consultation suggested: Manage on telemetry; EKG; Follow-up electrolytes and kidney function tests and correct abnormalities. Keep potassium above 4 and magnesium above 2; Long-term continuation of anticoagulation is advised. ANA is advised for further evaluation of cardiac chambers/valves -magnesium, normal -[employer] pacemaker evaluated and not compatible with MRI -ANA procedure done, LVEF was 35-40%. Mild diffuse hypokinesis of left ventricle was seen. moderate LVH. Right ventricle: Normal RV systolic function. Left atrium: LA enlarged. Right atrium: RA was enlarged. Pacing wire was seen in right sided chambers. Mitral valve: Thickened leaflet tips and leaflet movement was in favor of rheumatic mitral disease. At most moderate Mitral regurgitation was seen. Mild to moderate Mitral stenosis was seen. no thrombus or vegetation noted. Left atrial appendage: No evidence of thrombus. Aortic valve: Aortic valve was trileaflet. It had thickened leaflet tips with restricted motion in favor of Rheumatic disease. There was moderate Aortic Insufficiency. No vegetation noted. there is good opening of the leaflets of the AV. see surface echo for mean gradient across AV. Mild pulmonic insufficiency was seen. No significant stenosis. Tricuspid valve: Moderate to severe tricuspid regurgitation was seen. Interatrial septum: Negative color flow for right to left shunt was observed. Pericardium: No significant effusion. Thoracic aorta: No significant plaquing. -patient counselled on outpatient follow up with Dr Bose on friday. #NENA likely due to VMN -Creatinine 1.26>1.09 #Hypercalcemia -Serum calcium 10.8 -Monitor labs closely #Hyperglycemia, resolved, due to stress -Blood glucose 110 on admission, normal is last two Accu-Cheks - HbA1c 5.1 -Moderate sliding scale, stopped now #Constipation -MiraLax and docusate ordered #history of atrial flutter -Continue Eliquis #History of seizures -Continue levetiracetam GI prophylaxis: Pantoprazole DVT prophylaxis: Lovenox Diet: Cardiac Goals of care discussed with the patient for more than 27 minutes: Full code status Case discussed with Dr. Gallardo, patient and RN Plan discussed with: Patient, Other (rn) Date of Service: Jan 01, 2025 Billing Provider: ROXANA GALLARDO MD Common Visit Codes: 20946-[id number] INP/OBS CARE(HIGH) PANCHITO HESTER RESIDENT Jan 01, 2025 18:07 ROXANA GALLARDO MD Jan 03, 2025 21:17
== END 2025-01-01 18:00 | disposition home health service (06) | DRG 351 ==
LOC: ER 11:45 → OVERFLOW 20:59 → EAST 12-28 03:15 → TELE-EAST 12-30 19:38
PROVIDERS: ADMIT Student in an Organized Health Care Education/Training Program; ATTEND Student in an Organized Health Care Education/Training Program
PROC: B24BZZ4 Ultrasonography of Heart with Aorta, Transesophageal (ICD-10-PCS; principal; 2024-12-31)
DX: M25.461 Effusion, right knee (principal); N17.0 Acute kidney failure with tubular necrosis; I50.23 Acute on chronic systolic (congestive) heart failure; I42.8 Other cardiomyopathies; I13.0 Hypertensive heart and chronic kidney disease with heart failure and stage 1 through stage 4 chronic kidney disease, or unspecified chronic kidney disease; I08.2 Rheumatic disorders of both aortic and tricuspid valves; E11.22 Type 2 diabetes mellitus with diabetic chronic kidney disease; I48.92 Unspecified atrial flutter; S89.81XA Other specified injuries of right lower leg, initial encounter; Q21.12 Patent foramen ovale; I35.2 Nonrheumatic aortic (valve) stenosis with insufficiency; E83.52 Hypercalcemia; K59.00 Constipation, unspecified; E78.5 Hyperlipidemia, unspecified; E11.65 Type 2 diabetes mellitus with hyperglycemia; I37.1 Nonrheumatic pulmonary valve insufficiency; I25.10 Atherosclerotic heart disease of native coronary artery without angina pectoris; G89.4 Chronic pain syndrome; N18.9 Chronic kidney disease, unspecified; I08.3 Combined rheumatic disorders of mitral, aortic and tricuspid valves; F17.210 Nicotine dependence, cigarettes, uncomplicated; Z82.49 Family history of ischemic heart disease and other diseases of the circulatory system; Z87.442 Personal history of urinary calculi; Z79.2 Long term (current) use of antibiotics; Z79.84 Long term (current) use of oral hypoglycemic drugs; Z79.899 Other long term (current) drug therapy; Z79.01 Long term (current) use of anticoagulants; Z95.1 Presence of aortocoronary bypass graft; Z95.0 Presence of cardiac pacemaker; Z90.710 Acquired absence of both cervix and uterus; Z80.41 Family history of malignant neoplasm of ovary; W01.0XXA Fall on same level from slipping, tripping and stumbling without subsequent striking against object, initial encounter; Y93.89 Activity, other specified; Y92.89 Other specified places as the place of occurrence of the external cause; Y99.8 Other external cause status
CPT/HCPCS: 36415; 71046; 73700; 80048; 80053; 80076; 81001; 82270; 82607; 82746; 82962; 83036; 83735; 83880; 84439; 84443; 84480; 85025; 85610; 85730; 86850; 86900; 86901; 87205; 89051; 89060; 93306; 93312; 97110; 97116; 97163; 97530; 99152; G0378; J2250; J2470